=== PATIENT | female | born 1950 | race Caucasian/White ===

== ENCOUNTER 2023-09-24 19:44 | Emergency (ER) | payer MEDICARE, BC, SELFPAY ==
[2023-09-24 19:53] VITALS: BP 138/81; PULSE 64; TEMP 36.4; O2SAT 95; BMI 21.4
--- NOTE | 2023-09-24 20:13 | PC.NURSE ---
Pt reports hitting LLE on drawer handle at home. Pt has large golf ball sized hematoma noted to left tatum, not approximated.
--- NOTE | 2023-09-24 20:25 | ED_ITS ---
HPI HPI - Extremity Injury (Lower) General Chief Complaint: Extremity Injury, Lower Stated Complaint: Extremity Injury, Lower Time Seen by Provider: 09/24/23 19:47 Source: patient and family Mode of arrival: walk-in Limitations: no limitations History of Present Illness HPI Narrative: This 73-year-old female who is staying locally in a camper but lives in [place] presents for evaluation of a large skin tear/laceration on her left lateral lower leg. The patient states she struck it on a sharp plastic drawer handle in her camper. The patient is not on blood thinners but appears to have a tendency toward bleeding as she has multiple areas of ecchymosis on her upper and lower extremities. She states she could not get the bleeding to stop and went to urgent care. Urgent care wrapped the leg and referred her to the emergency department. She denies any additional injury. She does not know the date of her last tetanus shot. Related Data Allergies Allergy/AdvReac Type Severity Reaction Status Date / Time Penicillins Allergy Intermediate Hives Verified 09/24/23 19:58 Opioid HPI Opioid Management Most Recent Pain and Opioid Data: No Data to Display Review of Systems 2 ROS Narrative Vital signs and Nursing Notes reviewed: She is afebrile with a normal pulse, normal blood pressure, she is not hypoxic with pulse ox of 95% on room air General: Awake, alert, oriented, thin female resting comfortably on the stretcher, she is noted to have multiple areas of ecchymosis on her arms and legs HEENT: Normocephalic atraumatic, mucous membranes are moist and pink, eyes are clear, normal conjunctiva, vision is grossly intact Chest: Lungs are clear to auscultation with good air entry, there is no wheezing rhonchi or rales appreciated no accessory muscle use, patient is speaking in complete sentences-no chest wall tenderness to palpation CVS: Regular rate and rhythm S1-S2, no murmurs rubs or gallops, pulses are brisk and equal bilaterally ABD: Soft, nondistended, nontender, no rebound guarding or rigidity, bowel sounds are normal, no pulsatile masses appreciated Extremities: There is an approximately 8 cm skin tear/flap with a large hematoma at the left lateral lower leg. No pulsatile bleeding was noted. Feet are warm and sensate. Dorsalis pedis pulses brisk. Skin: Normal in appearance without rash,pallor, petechiae or purpura Neuro: No focal deficits Exam Narrative Exam Narrative: Vital signs and Nursing Notes reviewed: Patient is afebrile with a normal pulse, blood pressure is mildly elevated at 138/81, she is not hypoxic with pulse ox of 95% on room air General: Awake, alert, oriented, no acute distress, thin female, patient noted to have multiple ecchymotic areas on her upper and lower extremities bilaterally, she denies any trauma HEENT: Normocephalic atraumatic, mucous membranes are moist and pink, eyes are clear, normal conjunctiva, vision is grossly intact, anterior or posterior cervical lymphadenopathy Chest: Faint expiratory wheezing bilaterally with no rhonchi or rales, no accessory muscle use CVS: Regular rate and rhythm S1-S2, no murmurs rubs or gallops, pulses are brisk and equal bilaterally ABD: Soft, nondistended, nontender, no rebound guarding or rigidity, bowel sounds are normal, no pulsatile masses appreciated Extremities: Moving all extremities, multiple areas of ecchymosis on patient's arms and legs with no bony deformity or history of trauma. There is an approximately 8 cm skin tear/flap laceration to the lateral aspect of the left lower leg with a large hematoma. There is no active bleeding. Foot is warm and sensate. Dorsalis pedis pulses brisk. Skin: Multiple areas of ecchymosis on upper and lower extremities with no sign of trauma, patient states her skin is thin so she bruises easily Neuro: No focal deficits Constitutional Vital Signs, click to edit/add: Last Vital Signs Temp 97.6 F 09/24/23 19:53 Pulse 64 09/24/23 19:53 Resp 18 09/24/23 19:53 BP 138/81 09/24/23 19:53 Pulse Ox 95 09/24/23 19:53 O2 Del Method Room Air 09/24/23 19:53 Course Vital Signs Vital signs: Vital Signs Temperature 97.6 F 09/24/23 19:53 Pulse Rate 64 09/24/23 19:53 Respiratory Rate 18 09/24/23 19:53 Blood Pressure 138/81 09/24/23 19:53 Pulse Oximetry 95 09/24/23 19:53 Oxygen Delivery Method Room Air 09/24/23 19:53 Temperature 97.6 F 09/24/23 19:53 Pulse Rate 64 09/24/23 19:53 Respiratory Rate 18 09/24/23 19:53 Blood Pressure 138/81 09/24/23 19:53 Pulse Oximetry 95 09/24/23 19:53 Oxygen Delivery Method Room Air 09/24/23 19:53 MDM - Extremity Injury (Lower) MDM Narrative Medical decision making narrative: This 73-year-old female presents for evaluation of a large skin tear/laceration with a hematoma to the left lateral lower leg that she sustained when she hit her leg on a sharp plastic piece on a fashion coordinator her camper. She was seen at urgent care but urgent care did not feel comfortable treating this so she came to the emergency department. She had an approximately 8 cm skin te ar/flap/laceration with a large hematoma. Bleeding had been controlled by pressure dressing placed at urgent care. A portion of the hematoma was removed after the wound was infiltrated with 1% lidocaine with epinephrine and the wound was closed with sutures and Steri-Strips. Patient was medicated with Keflex, tetanus was updated. She declined the need for any pain medication. She agrees to follow-up in 48 hours for a wound check either at urgent care, this emergency department or the wound care clinic. She will be discharged home with a prescription for Keflex. I did explain to her that this would take a prolonged period of time to heal due to her thin skin and comorbidities. Discharge Plan Discharge Stand Alone Forms: Portal Instructions Chief Complaint: Extremity Injury, Lower Clinical Impression: Laceration of left lower leg, Skin tear of lower leg without complication Patient Disposition: Home, Self-Care Time of Disposition Decision: 21:03 Condition: Good Print Language: Libyan Instructions: Care For Your Stitches (ED), Laceration (ED) Additional Instructions: Follow-up in this emergency department or urgent care or at wound care clinic for wound check in 48 hours. Return to the emergency department for severe pain, excessive bleeding, fever or any concerns. Keep your leg elevated and keep ice on the laceration site for the next 12 to 24 hours. Sutures should remain in place for 2 weeks or until deemed appropriate for removal by wound care or a healthcare provider's recommendation. Referrals: Physician,Non-Staff, MD [Primary Care Provider] - 1 week Discharge Date/Time: 09/24/23 21:32 Procedures ED Procedure Instructions Procedures Procedures: Procedure note: Laceration repair; the wound edges were infiltrated with 1% lidocaine with epinephrine. Once anesthesia was obtained the hematoma that was able to be evacuated was evacuated and the remaining hematoma and laceration was irrigated with copious normal saline. Approximately 14 sutures were placed into the laceration. Approximately 4, 3-0 Ethilon horizontal mattress sutures were placed into the laceration to approximate the wound edges. Additional running sutures and interrupted sutures were placed into the laceration to attempt to close the wound. Several times when I placed the suture into the skin the skin tore at the suture site. After the suture closure the wound was further approximated with Steri-Strips. A nonstick dressing was placed over the Steri- Strips and a pressure dressing was applied. There was no active bleeding prior to to the procedure, during the procedure after the procedure. Patient tolerated procedure well. She was discharged home after being medicated with a dose of Keflex and tetanus was updated.
[2023-09-24] MEDS: LIDOCAINE HCL 1%-EPINEPHRINE 1:100,000 20 ML MDV INJ (20:58)
[2023-09-24] MEDS: ADACEL DIPH,PERTUSS(ACELL),TET VAC/PF 0.5 ML ADULT SYRINGE IM (20:58)
[2023-09-24] MEDS: CEPHALEXIN 500 MG CAPSULE PO (21:17)
== END 2023-09-24 21:32 | disposition home or self-care (01) ==
PROVIDERS: Emergency Provider Emergency Medicine
DX: S81.812A Laceration without foreign body, left lower leg, initial encounter (principal); Z23 Encounter for immunization; W22.8XXA Striking against or struck by other objects, initial encounter
CPT/HCPCS: 12004; 90471; 90715; 99284

== ENCOUNTER 2023-09-26 10:31 | Emergency (ER) | payer MEDICARE, BC, SELFPAY ==
[2023-09-26 10:40] VITALS: BP 141/94; PULSE 61; TEMP 36.4; O2SAT 92; BMI 20.3
--- NOTE | 2023-09-26 10:54 | ED.WOUNDLAC1 ---
HPI - Wound/Laceration General Chief Complaint: Wound/Laceration Stated Complaint: LT LEG HEMATOMA CHECK Time Seen by Provider: 09/26/23 10:32 Source: patient Mode of arrival: walk-in Limitations: no limitations History of Present Illness HPI narrative: 73-year-old female presented as instructed to the emergency department for a wound check. She sustained a wound to her left lower leg 2 days ago and was seen here. Steri-Strips and stitches were placed and she was to follow-up in wound care clinic. She was unable to get in there and she came here to have it checked. She has been taking antibiotic. No purulent drainage or bleeding. She states it is starting to feel better. Related Data Allergies Allergy/AdvReac Type Severity Reaction Status Date / Time Penicillins Allergy Intermediate Hives Verified 09/24/23 19:58 Review of Systems ROS Narrative A ten point review of systems is negative except as noted above. Exam Narrative Exam Narrative: Nurses note and vital signs reviewed and patient is not hypoxic. General: The patient appears well and in no apparent distress. Patient is resting comfortably on cart. Skin: Warm, dry, no pallor noted. There is no rash noted. Head: Normocephalic, atraumatic Eye: Normal conjunctiva, no drainage Ears, Nose, Mouth, and Throat: oral mucosa is moist. Nares patent. Cardiovascular: Regular Rate and Rhythm Respiratory: Patient is in no distress, no accessory muscle use, lungs are clear to auscultation, no wheezing, rales or rhonchi Back: non-tender GI: Soft and nontender Musculoskeletal: The left leg is examined. Hematoma present and Steri-Strips are in place. There is no bleeding or surrounding erythema. There is no drainage. Psychiatric: Cooperative Constitutional Vital Signs, click to edit/add: Last Vital Signs Temp 97.6 F 09/26/23 10:40 Pulse 61 09/26/23 10:40 Resp 18 09/26/23 10:40 BP 141/94 H 09/26/23 10:40 Pulse Ox 92 L 09/26/23 10:40 O2 Del Method Room Air 09/26/23 10:40 Course Vital Signs Vital signs: Vital Signs Temperature 97.6 F 09/26/23 10:40 Pulse Rate 61 09/26/23 10:40 Respiratory Rate 18 09/26/23 10:40 Blood Pressure 141/94 H 09/26/23 10:40 Pulse Oximetry 92 L 09/26/23 10:40 Oxygen Delivery Method Room Air 09/26/23 10:40 Temperature 97.6 F 09/26/23 10:40 Pulse Rate 61 09/26/23 10:40 Respiratory Rate 18 09/26/23 10:40 Blood Pressure 141/94 H 09/26/23 10:40 Pulse Oximetry 92 L 09/26/23 10:40 Oxygen Delivery Method Room Air 09/26/23 10:40 MDM - Wound/Laceration MDM Narrative Medical decision making narrative: The wound appears to be healing well and she was encouraged to follow-up in wound care clinic and to take her Keflex. Treatment diagnosis and follow-up were discussed with the patient. Differential Diagnosis Differential diagnosis: Likely laceration, abrasion and other (Hematoma) Discharge Plan Discharge Stand Alone Forms: Portal Instructions Chief Complaint: Wound/Laceration Clinical Impression: Visit for wound check Patient Disposition: Home, Self-Care Time of Disposition Decision: 10:52 Condition: Good Mode of Transportation: Private Vehicle Print Language: Nepali Instructions: Wound Healing and Your Diet (ED), Hematoma (ED) Additional Instructions: Follow-up in the wound care clinic, call them in the morning. Referrals: Physician,Non-Staff, MD [Primary Care Provider] - 1 week
[2023-09-26 11:01] VITALS: PULSE 87; O2SAT 94
== END 2023-09-26 11:03 | disposition home or self-care (01) ==
PROVIDERS: Emergency Provider Emergency Medicine
DX: S81.812D Laceration without foreign body, left lower leg, subsequent encounter (principal); X58.XXXD Exposure to other specified factors, subsequent encounter
CPT/HCPCS: 99281

== ENCOUNTER 2023-09-30 16:11 | Outpatient (OUT) | payer MEDICARE, BC, SELFPAY | END 2023-09-30 16:12 | disposition home or self-care (01) | LOC: WC 16:11 | PROVIDERS: Visit Provider Podiatrist Foot & Ankle Surgery | DX: S81.802A Unspecified open wound, left lower leg, initial encounter (principal) | CPT/HCPCS: G0463 ==

== ENCOUNTER 2023-10-12 16:09 | Outpatient (OUT) | payer MEDICARE, BC, SELFPAY | END 2023-10-12 16:10 | disposition home or self-care (01) | LOC: WC 16:09 | PROVIDERS: Visit Provider Physician Assistant | DX: S81.802A Unspecified open wound, left lower leg, initial encounter (principal) | CPT/HCPCS: A6213; G0463 ==

== ENCOUNTER 2023-10-20 19:20 | Emergency (ER) | payer MEDICARE, BC, SELFPAY ==
[2023-10-20 19:23] VITALS: BP 123/70; PULSE 68; TEMP 36.4; O2SAT 98; BMI 20.3
--- OUTSIDE RECORDS SUMMARY | 2023-10-20 19:30 | XMS_ITS | CCD ---
Author Organization [facility] Care Team Providers Care Powder Mixer Name Role Phone Loulou Sanchez Primary Care Provider NON STAFF Primary Care Provider UnavailKRYSTAL Hightower Emergency Provider [phone] JOHANNY MCKNIGHT Attending Unavailable DO Sushma Nascimento Emergency Provider MD Juan Alberto Salinas Admit Provider MD Juan Alberto Salinas Attending Provider Juan Alberto Salinas Attending Unavailable Juan Alberto Salinas Admitting Unavailable NON STAFF Primary Care Unavailable Don Rapp Admitting Unavailable NON STAFF Primary Care Unavailable Don Rapp Attending Unavailable Allergies Allergy Classification Reported Allergen(s) Allergy Type Date of Onset Reaction(s) Facility (1 source) Penicillins Drug allergy (disorder) 09-21-2023 [facility] Repository Medications Current Medications Medication Drug Class(es) Dates Sig (Normalized) Sig (Original) alendronic acid 70 mg oral tablet (2 sources) Bisphosphonate Start: 09-21-2023 take 70 mg by mouth every week Alendronate Active 70 MG PO every week September 21, 2023 12:00am aspirin 81 mg oral tablet (3 sources) Platelet Aggregation Inhibitor, Nonsteroidal Anti-inflammatory Drug Start: 08-17-2023 take 81 mg by mouth once daily Aspirin Active 81 MG PO Daily August 17, 2023 12:00am atorvastatin 40 mg oral tablet (2 sources) HMG-CoA Reductase Inhibitor Start: 09-21-2023 take 40 mg by mouth once daily Atorvastatin Active 40 MG PO Daily September 21, 2023 12:00am clonazePAM 0.5 mg oral tablet (3 sources) Benzodiazepine Start: 09-24-2023 take 0.5 mg by mouth twice daily Clonazepam Active 0.5 MG PO Twice daily 0 September 24, 2023 12:00am Start: 09-21-2023 End: 09-24-2023 take 1 mg by mouth twice daily Clonazepam Discontinued 1 MG PO Twice daily September 21, 2023 12:00am September 24, 2023 10:40am DULoxetine 60 mg delayed release oral capsule (4 sources) Serotonin and Norepinephrine Reuptake Inhibitor Start: 08-17-2023 End: 09-24-2023 take 1 capsule by mouth twice daily Duloxetine (Cymbalta) 60 mg capsule,delayed release(DR/EC) Active 60 MG PO Twice daily 60 30 September 24, 2023 10:40am Fluticasone Propion-Salmeterol (3 sources) Corticosteroid, beta2-Adrenergic Agonist Start: 08-17-2023 Fluticasone Propion-Salmeterol (Wixela Inhub) 250-50 mcg/dose blister with device Active 1 INH INHALATION Twice daily August 17, 2023 12:00am 1 inh inhaled; losartan potassium 25 mg oral tablet (2 sources) Angiotensin 2 Receptor Eulogio Start: 09-21-2023 take 25 mg by mouth once daily Losartan Active 25 MG PO Daily September 21, 2023 12:00am meclizine hydrochloride 25 mg oral tablet (2 sources) Antiemetic Start: 09-21-2023 take 25 mg by mouth three times daily Meclizine Active 25 MG PO Three times daily September 21, 2023 12:00am nicotine 2 mg chewing gum (1 source) Cholinergic Nicotinic Agonist Start: 09-24-2023 Nicotine (Polacrilex) Active 2 MG BUCCAL Q2H September 24, 2023 12:00am ondansetron 4 mg disintegrating oral tablet (2 sources) Serotonin-3 Receptor Antagonist Start: 09-21-2023 take 4 mg by mouth every eight hours Ondansetron Active 4 MG PO Every 8 hours September 21, 2023 12:00am pantoprazole 40 mg delayed release oral tablet (5 sources) Proton Pump Inhibitor Start: 09-21-2023 take 40 mg by mouth twice daily Pantoprazole Active 40 MG PO Twice daily September 21, 2023 12:00am Start: 08-17-2023 End: 09-21-2023 Protonix Discontinued PO Twi ce daily August 17, 2023 12:00am September 21, 2023 12:47pm Start: 08-17-2023 Protonix Activ e PO Twice daily August 17, 2023 12:00am pregabalin 50 mg oral capsule (2 sources) Start: 09-21-2023 take 50 mg by mouth three times daily Pregabalin Active 50 MG PO Three times daily September 21, 2023 12:00am propranolol hydrochloride 20 mg oral tablet (2 sources) beta-Adrenergic Eulogio Start: 09-21-2023 take 20 mg by mouth twice daily Propranolol Active 20 MG PO Twice daily September 21, 2023 12:00am 24 hr QUEtiapine 200 mg extended release oral tablet (5 sources) Atypical Antipsychotic Start: 09-21-2023 take 200 mg by mouth once daily at bedtime Quetiapine Active 200 MG PO Daily at bedtime September 21, 2023 12:00am Start: 08-17-2023 End: 09-21-2023 take 1 tablet by mouth once daily Quetiapine (Seroquel) 100 mg tablet Discontinued 100 MG PO Daily August 17, 2023 12:00am September 21, 2023 12:47pm temazepam 30 mg oral capsule (3 sources) Benzodiazepine Start: 08-17-2023 take 30 mg by mouth once daily at bedtime temazepam Active 30 MG PO Daily at bedtime August 17, 2023 12:00am Start: 08-17-2023 temazepam Acti ve PO Daily August 17, 2023 12:00am 60 actuat tiotropium 0.0025 mg/actuat inhalation spray (5 sources) Anticholinergic Start: 09-21-2023 take 2.5 ug by inhalation twice daily Tiotropium [place] (Spiriva Respimat) 2.5 mcg/actuation mist Active 2 INH INHALATION Twice daily September 21, 2023 12:00am Start: 08-17-2023 End: 09-21-2023 SPIRIVA Discontinued INHALAT ION Daily August 17, 2023 12:00am September 21, 2023 12:48pm Start: 08-17-2023 SPIRIVA Active INHALATION Daily August 17, 2023 12:00am Completed/Discontinued Medications Medication Drug Class(es) Dates Sig (Normalized) Sig (Original) busPIRone hydrochloride 10 mg oral tablet (2 sources) Start: 09-21-2023 End: 09-21-2023 take 10 mg by mouth once daily Buspirone Discontinued 10 MG PO Daily September 21, 2023 12:00am September 21, 2023 6:04pm Lisinopril (3 sources) Angiotensin Converting Enzyme Inhibitor Start: 08-17-2023 End: 09-21-2023 LISINOPRIL Discontinued PO Daily August 17, 2023 12:00am September 21, 2023 12:47pm Start: 08-17-2023 LISINOPRIL Act nestor PO Daily August 17, 2023 12:00am Nirmatrelvir-Ritonavir (Paxlovid) 300 mg (150 mg x 2)-100 mg tablets,dose pack (3 sources) Start: 08-17-2023 End: 09-21-2023 Nirmatrelvir-Ritonavir (Paxlovid) 300 mg (150 mg x 2)-100 mg tablets,dose pack Discontinued 0 PO .COMPLEX August 17, 2023 12:00am September 21, 2023 12:47pm take TWO 150 mg tablets of nirmatrelvir with ONE 100 mg tablet of ritonavir twice daily for 5 days Start: 08-17-2023 Nirmatrelvir-R itonavir (Paxlovid) 300 mg (150 mg x 2)-100 mg tablets,dose pack Active 0 PO .COMPLEX August 17, 2023 12:00am take TWO 150 mg tablets of nirmatrelvir with ONE 100 mg tablet of ritonavir twice daily for 5 days predniSONE 20 mg oral tablet (3 sources) Start: 08-17-2023 End: 09-21-2023 Prednisone Discontinued 0 .R oute .COMPLEX 18 August 17, 2023 12:00am September 21, 2023 12:47pm 3 tabs a day for 3 days, 2 tabs a day for 3 days, 1 tab a day for 3 days Problems Problem Classification Problem Date Documented Da te Episodic/Chronic Abdominal pain (4 sources) Chronic abdominal pain; Translations: [Unspecified abdominal pain] 09-21-2023 Episodic Chronic obstructive pulmonary disease and bronchiectasis (3 sources) Acute exacerbation of chronic obstructive airways disease 08-17-2023 Chronic Mood disorders (5 sources) Major depressive disorder; Translations: [Major depressive disorder, single episode, unspecified] Onset: 09-21-2023 09-21-2023 Chronic Other lower respiratory disease (1 source) Shortness of breath; Translations: [Shortness of breath] Onset: 08-17-2023 Episodic Viral infection (3 sources) Disease caused by 2019-nCoV; Translations: [COVID-19] 08-17-2023 Episodic Results Test Name Value Interpretation Reference Range Facility Cholesterol [Mass/volume] in Serum or PlasmaOrdered By: Juan Alberto Salinas on 09-22-2023 Cholesterol [Mass/Vol] 103 mg/dL Low 140-[address] [facility] Comment on above: Chol less than 200 m g/dl low riskChol 201-239 mg/dl borderline riskChol 240 mg/dl and greater high risk Result Comment: Chol less than 200 mg/dl low risk Chol 201-239 mg/dl borderline risk Chol 240 mg/dl and greater high risk Performed By: #### L IPID, [id number], TSH3 wRFLX ####[facility] [id number] Cholesterol in LDL Calc [Mas s/Vol]Ordered By: Juan Alberto Salinas on 09-22-2023 Cholesterol in LDL [Mass/Vol] 36 mg/dL 0-100 [facility] Comment on above: LDL ATP III CLASSIFI CATIONLDL less than 100 mg/dL OptimalLDL 100-129 mg/dL Near or above optimalLDL 130-159 mg/dL Borderline highLDL 160-189 mg/dL HighLDL greater than 189 mg/dL Very high Cholesterol in VLDL Calc [Ma ss/Vol]Ordered By: Juan Alberto Salinas on 09-22-2023 Cholesterol in VLDL [Mass/Vol] 11 mg/dL [facility] ECG 12 lead ECGon 09-22-2023 ECG 12 lead ECG [facility] [address] [place] [address] [place] [address] Electrocardiograph Report Signed Patient: Quin Perez MR#: [id number] : 1950 Acct:[id number] Age/Sex: 73 / F ADM Date: 09/21/23 Loc: Room: [address] [place] [address] Type: ADM IN Attending Dr: Juan Alberto Salinas MD Ordering Provider: Juan Alberto Salinas MD Date of Service: 09/22/23 ECG/ECG 12 lead ECG: baseline Copies to: Test Reason : Blood Pressure : */* mmHG Vent. Rate : 78 BPM Atrial Rate : 78 BPM P-R Int : 116 ms QRS Dur : 90 ms QT Int : 386 ms P-R-T Axes : 72 26 75 degrees QTcB Int : 440 ms Normal sinus rhythm Minimal voltage criteria for LVH, may be normal variant ( [place] product ) Borderline ECG When compared with ECG of 17-Aug-2023 13:47, Criteria for Anterolateral infarct are no longer present Confirmed by KOJO JAMESON MD ([id number]) on 09/22/2023 3:47:46 PM Referred By: Electronically Signed By: KOJO JAMESON MD Transcribed By: MUS Signed By Kojo Jameson MD 0 09/22/23 1547 Normal [facility] Lipid Panelon 09-22-2023 LDL Cholesterol,Calculated 36 mg/dL Normal 0-100 [facility] Comment on above: Result Comment: LDL ATP III CLASSIFICATION LDL less than 100 mg/dL Optimal LDL 100-129 mg/dL Near or above optimal LDL 130-159 mg/dL Borderline high LDL 160-189 mg/dL High LDL greater than 189 mg/dL Very high Performed By: #### L IPID, [id number], TSH3 wRFLX ####[place] [id number] Triglyceride w/Reflex 58 mg/dL Normal 0-149 [facility] Comment on above: Result Comment: TRIG ATP III CLASSIFICATION TRIG less than 150 mg/dL Normal TRIG 150-199 mg/dL Borderline high TRIG 200-500 mg/dL High TRIG greater than 500 mg/dL Very high Standard traceable to the Center for Disease Conrtrol and Prevention (CDC) test method. Performed By: #### L IPID, [id number], TSH3 wRFLX ####[facility] [id number] [place] [address] RUST VLDL CHOLESTEROL 11 mg/dL Normal [facility] Comment on above: Performed By: #### L IPID, [id number], TSH3 wRFLX ####[place] [id number] Serum or plasma high density lipoprotein (HDL) cholesterol measurementOrdered By: Juan Alberto Salinas on 09-22-2023 Cholesterol in HDL [Mass/Vol] 55 mg/dL Normal - [facility] Comment on above: HDL CHOL ATP-III CLA SSIFICATION Cardiovascular RiskHDL > or equal to 60 mg/dL LOWHDL < 40 mg/dL HIGH Result Comment: HDL CHOL ATP-III CLASSIFICATION Cardiovascular Risk HDL > or equal to 60 mg/dL LOW HDL < 40 mg/dL HIGH Performed By: #### L IPID, [id number], TSH3 wRFLX ####[address] Serum or plasma total choles terol/high density lipoprotein (HDL) cholesterol mass ratOrdered By: Juan Alberto Salinas on 09-22-2023 Cholesterol.total/Chol esterol in HDL [Mass ratio] 1.9 {ratio} Normal <5.0 [facility] Comment on above: Performed By: #### L IPID, [id number], TSH3 wRFLX ####[address] Thyroid Stim Hormone w/Rflxo n 09-22-2023 Thyroid Stim Hormone w/Rflx 0.80 u[iU]/mL Normal 0.45-5.33 [facility] Comment on above: Performed By: #### L IPID, [id number], TSH3 wRFLX ####[address] Thyrotropin [Units/volume] i n Serum or PlasmaOrdered By: Juan Alberto Salinas on 09-22-2023 TSH Qn 0.80 m[IU]/L 0.45-5.33 [facility] Triglyceride [Mass/volume] i n Serum or PlasmaOrdered By: Juan Alberto Salinas on 09-22-2023 Triglyceride [Mass/Vol] 58 mg/dL 0-149 [facility] Comment on above: TRIG ATP III CLASSIF ICATIONTRIG less than 150 mg/dL NormalTRIG 150-199 mg/dL Borderline highTRIG 200-500 mg/dL High TRIG greater than 500 mg/dL Very highStandard traceable to the Center for Disease Conrtrol and Prevention (CDC) test method. Vitamin D 25 Hydroxy Totalon 09-22-2023 Vitamin D 25 Hydroxy Total 19.4 ng/mL Low 30-100 [facility] Comment on above: Result Comment: ARELI MIN D STATUS 25(OH)VITAMIN D RANGE (ng/mL) Deficient <20 Insufficient 20 to <30 Sufficient 30 to 100 Reference: Jerry aY, Vita ORTEZ, et al. Evaluation,treatment, and prevention of vitamin D deficiency; an Endocrine Society clinical practice guideline. JCEM. 2010; 96(7):1911-. PERFORMED BY: [facility] [address] [place] [address] PATHOLOGIST [employer] SRINATH MENDIOLA M.D. Performed By: #### L IPID, [id number], TSH3 wRFLX ####[facility] [id number] Vitamin D+Metabolites [Mass/ volume] in Serum or PlasmaOrdered By: Juan Alberto Salinas on 09-22-2023 Vitamin D+Metabolites [Mass/Vol] 19.4 ng/mL Low 30-100 [facility] Comment on above: VITAMIN D STATUS 25( [place])VITAMIN D RANGE (ng/mL) Deficient <20 Insufficient 20 to <30Sufficient 30 to 100Reference: Jerry Ya, Vita ORTEZ, et al. Evaluation,treatment, and prevention of vitamin D deficiency; an Endocrine Society clinical practice guideline. JCEM. 2010; 96(7):1911-30. Alanine aminotransferase [En zymatic activity/volume] in Serum or PlasmaOrdered By: Sushma Nascimento on 09-21-2023 ALT [Catalytic activity/Vol] 14 U/L Normal 7-52 [facility] Comment on above: Performed By: #### R EDIL PANEL UPP., BIOFIRECOVDET #### [facility] [address] Albumin [Mass/volume] in Ser um or Plasma by Bromocresol green (BCG) dye binding methoOrdered By: Sushma Nascimento on 09-21-2023 Albumin BCG dye [Mass/Vol] 3.6 g/dL 3.5-5.7 [facility] Alkaline phosphatase [Enzyma tic activity/volume] in Serum or PlasmaOrdered By: Sushma Nascimento on 09-21-2023 ALP [Catalytic activity/Vol] 94 U/L Normal 34-104 [facility] Comment on above: Performed By: #### R EDIL PANEL UPP., BIOFIRECOVDET #### [facility] [address] Amphetamine Screen Ql (U)Ord ered By: Sushma Nascimento on 09-21-2023 Amphetamines Ql (U) Negative Negative [facility] Aspartate aminotransferase [ Enzymatic activity/volume] in Serum or PlasmaOrdered By: Sushma Nascimento on 09-21-2023 AST [Catalytic activity/Vol] 15 U/L Normal 13-39 [facility] Comment on above: Performed By: #### R EDIL PANEL UPP., BIOFIRECOVDET #### [address] Automated basophil %Ordered By: Sushma Nascimento on 09-21-2023 Basophils/100 WBC (Bld) 0.6 % Normal . [facility] Comment on above: Performed By: #### R EDIL PANEL UPP., BIOFIRECOVDET #### [facility] [address] [place] [address] Automated basophil countOrde red By: Sushma Nascimento on 09-21-2023 Basophils (Bld) [#/Vol] 0.1 10*3/uL Normal 0.0-0.2 [facility] Comment on above: Result Comment: PERF ORMED BY: [place] [address] PATHOLOGIST [employer] SRINATH MENDIOLA M.D. Performed By: #### R EDIL PANEL UPP., BIOFIRECOVDET #### [address] Automated blood monocyte cou ntOrdered By: Sushma Nascimento on 09-21-2023 Monocytes (Bld) [#/Vol] 0.8 10*3/uL Normal 0.0-0.8 [facility] Comment on above: Performed By: #### R EDIL PANEL UPP., BIOFIRECOVDET #### [address] Automated eosinophil %Ordere d By: Sushma Nascimento on 09-21-2023 Eosinophils/100 WBC (Bld) 0.1 % Normal . [facility] Comment on above: Performed By: #### R EDIL PANEL UPP., BIOFIRECOVDET #### [address] Automated eosinophil countOr dered By: Sushma Nascimento on 09-21-2023 Eosinophils (Bld) [#/Vol] 0.0 10*3/uL Normal 0.0-0.45 [facility] Comment on above: Performed By: #### R EDIL PANEL UPP., BIOFIRECOVDET #### [address] Automated epithelial cells c ount in urine sediment (number/area)Ordered By: Sushma Nascimento on 09-21-2023 Epithelial cells Auto (Urine sed) [#/Area] 3-4 [HPF] High 0-2 [facility] Automated monocyte %Ordered By: Sushma Nascimento on 09-21-2023 Monocytes/100 WBC (Bld) 6.7 % Normal . [facility] Comment on above: Performed By: #### R EDIL PANEL UPP., BIOFIRECOVDET #### [address] Automated neutrophil %Ordere d By: Sushma Nascimento on 09-21-2023 Neutrophils/100 WBC (Bld) 80.7 % Normal . [facility] Comment on above: Performed By: #### R EDIL PANEL UPP., BIOFIRECOVDET #### [address] Bacteria [Presence] in Urine by AutomatedOrdered By: Sushma Nascimento on 09-21-2023 Bacteria Auto Ql (U) None seen [HPF] None Seen [facility] Barbiturates [Presence] in U rine by Screen methodOrdered By: Sushma Nascimento on 09-21-2023 Barbiturates Screen Ql (U) Negative Negative [facility] Benzodiazepines Screen Ql (U )Ordered By: Sushma Nascimento on 09-21-2023 Benzodiazepines Ql (U) Positive High Negative [facility] Benzoylecgonine [Presence] i n Urine by Screen methodOrdered By: Sushma Nascimento on 09-21-2023 Benzoylecgonine Screen Ql (U) Negative Negative [facility] Bilirubin Test strip Ql (U)O rdered By: Sushma Nascimento on 09-21-2023 Bilirubin Ql (U) 2+ High Negative [facility] Bilirubin.total [Mass/volume ] in Serum or PlasmaOrdered By: Sushma Nascimento on 09-21-2023 Bilirubin [Mass/Vol] 0.7 mg/dL Normal 0.3-1.0 [facility] Comment on above: Performed By: #### R EDIL PANEL UPP., BIOFIRECOVDET #### [facility] [address] [place] [address] [place] Calcium [Mass/volume] in Ser um or PlasmaOrdered By: Sushma Nascimento on 09-21-2023 Calcium [Mass/Vol] 9.6 mg/dL Normal 8.6-10.3 [facility] Comment on above: Performed By: #### R EDIL PANEL UPP., BIOFIRECOVDET #### [facility] [address] [place] [address] [place] Cannabinoids [Presence] in U rine by Screen methodOrdered By: Sushma Nascimento on 09-21-2023 Cannabinoids Screen Ql (U) Negative Negative [facility] Comment on above: These are unconfirme d results and should not be used for legal purposes. Drug Cut-Off Concentration: AMPH 1000 ng/mL MELISA 200 ng/mL SHUBHAM 200 ng/mL COCM 300 ng/mL OP 300 ng/mL PCP 25 ng/mL THC 20 ng/mL Carbon dioxide, total [Moles /volume] in Serum or PlasmaOrdered By: Sushma Nascimento on 09-21-2023 CO2 [Moles/Vol] 39.0 mmol/L High 21.0-31.0 [facility] Comment on above: Performed By: #### R EDIL PANEL UPP., BIOFIRECOVDET #### [address] Chloride [Moles/volume] in S piter or PlasmaOrdered By: Sushma Nascimento on 09-21-2023 Chloride [Moles/Vol] 96 mmol/L Low 98-107 [facility] Comment on above: Performed By: #### R EDIL PANEL UPP., BIOFIRECOVDET #### [address] Color of Urine by AutoOrdere d By: Sushma Nascimento on 09-21-2023 Color (U) Dark yellow Critically abnormal Yellow [facility] Comment on above: Order Comment: Name Collection Type:: Clean-Voided Midstream Performed By: #### R EDIL PANEL UPP., BIOFIRECOVDET #### [address] Complete Blood Count Auto Di ffon 09-21-2023 Mean Corpuscular HGB Conc 31.5 g/dL Low 32.0-35.0 [facility] Comment on above: Performed By: #### R EDIL PANEL UPP., BIOFIRECOVDET #### [place] [address] [place] Monocytes/100 WBC (Bld) 19.97 % Normal 0.00-20.00 [facility] Comment on above: Performed By: #### R EDIL PANEL UPP., BIOFIRECOVDET #### [facility] [address] [place] [address] NRBC% 0.1 /100{WBC} Normal 0-0.5 [facility] Comment on above: Performed By: #### R EDIL PANEL UPP., BIOFIRECOVDET #### [address] Comprehensive Metabolic Pane phi 09-21-2023 Albumin [Mass/Vol] 3.6 g/dL Normal 3.5-5.7 [facility] Comment on above: Performed By: #### R EDIL PANEL UPP., BIOFIRECOVDET #### [address] Creatinine Clr Calc Pharmacy 44.06 Normal [facility] Comment on above: Result Comment: PERF ORMED BY: [place] [address] PATHOLOGIST [employer] SRINATH MENDIOLA M.D. Performed By: #### R EDIL PANEL UPP., BIOFIRECOVDET #### [address] GFR/1.73 sq M.predicted MDRD (S/P/Bld) [Vol rate/Area] mL/min/{1.73_m2} Normal [facility] Comment on above: Performed By: #### R EDIL PANEL UPP., BIOFIRECOVDET #### [address] Creatinine [Mass/volume] in Serum or PlasmaOrdered By: Sushma Nascimento on 09-21-2023 Creatinine [Mass/Vol] 0.81 mg/dL Normal 0.60-1.20 [facility] Comment on above: Performed By: #### R EDIL PANEL UPP., BIOFIRECOVDET #### [address] Dipstick and Microscopicon 0 09-21-2023 Appearance (U) Cloudy Critically abnormal Clear [facility] Comment on above: Order Comment: Name Collection Type:: Clean-Voided Midstream Performed By: #### R EDIL PANEL UPP., BIOFIRECOVDET #### [address] Bacteria,Urine None Seen Normal None Seen [facility] Comment on above: Order Comment: Name Collection Type:: Clean-Voided Midstream Performed By: #### R EDIL PANEL UPP., BIOFIRECOVDET #### [address] Bilirubin,Urine 2+ High Negative [facility] Comment on above: Order Comment: Name Collection Type:: Clean-Voided Midstream Performed By: #### R EDIL PANEL UPP., BIOFIRECOVDET #### [address] Glucose Ql (U) Normal Normal Normal [facility] Comment on above: Order Comment: Name Collection Type:: Clean-Voided Midstream Performed By: #### R EDIL PANEL UPP., BIOFIRECOVDET #### [address] Hyaline Casts,Urine 9-19 High 0-8 [facility] Comment on above: Order Comment: Name Collection Type:: Clean-Voided Midstream Result Comment: PERF ORMED BY: [place] [address] PATHOLOGIST [employer] SRINATH MENDIOLA M.D. Performed By: #### R EDIL PANEL UPP., BIOFIRECOVDET #### [address] Ketones Ql (U) Trace High Negative [facility] Comment on above: Order Comment: Name Collection Type:: Clean-Voided Midstream Performed By: #### R EDIL PANEL UPP., BIOFIRECOVDET #### [address] Leukocyte esterase Test strip Ql (U) 1+ High Negative [facility] Comment on above: Order Comment: Name Collection Type:: Clean-Voided Midstream Performed By: #### R EDIL PANEL UPP., BIOFIRECOVDET #### [place] [address] [place] Nitrite,Urine Negative Normal Negative [facility] Comment on above: Order Comment: Name Collection Type:: Clean-Voided Midstream Performed By: #### R EDIL PANEL UPP., BIOFIRECOVDET #### [address] Occult Blood,Urine Negative Normal Negative [facility] Comment on above: Order Comment: Name Collection Type:: Clean-Voided Midstream Result Comment: PERF ORMED BY: [place] [address] PATHOLOGIST [employer] SRINATH MENDIOLA M.D. Performed By: #### R EDIL PANEL UPP., BIOFIRECOVDET #### [address] RBC LM.HPF (Urine sed) [#/Area] 0 /[HPF] Normal 0-4 [facility] Comment on above: Order Comment: Name Collection Type:: Clean-Voided Midstream Performed By: #### R EDIL PANEL UPP., BIOFIRECOVDET #### [address] Specificy [place],Urine 1.022 Normal 1.001-1.03 0 [facility] Comment on above: Order Comment: Name Collection Type:: Clean-Voided Midstream Performed By: #### R EDIL PANEL UPP., BIOFIRECOVDET #### [address] Squamous Epithelial Cell,Urine 3-4 High 0-2 [facility] Comment on above: Order Comment: Name Collection Type:: Clean-Voided Midstream Performed By: #### R EDIL PANEL UPP., BIOFIRECOVDET #### [address] Urobilinogen,Urine >=2 High Normal [facility] Comment on above: Order Comment: Name Collection Type:: Clean-Voided Midstream Performed By: #### R EDIL PANEL UPP., BIOFIRECOVDET #### [address] WBC,Urine 3-4 Normal 0-4 [facility] Group Comment on above: Order Comment: Name Collection Type:: Clean-Voided Midstream Performed By: #### R EDIL PANEL UPP., BIOFIRECOVDET #### [address] Drug Screen,Urineon 09-21-19 24 Amphetamine Screen,Urine Negative Normal Negative [facility] Comment on above: Performed By: #### R EDIL PANEL UPP., BIOFIRECOVDET #### [address] Barbiturate Screen,Urine Negative Normal Negative [facility] Comment on above: Performed By: #### R EDIL PANEL UPP., BIOFIRECOVDET #### [address] Benzodiazepines Screen,Urine Positive High Negative [facility] Comment on above: Performed By: #### R EDIL PANEL UPP., BIOFIRECOVDET #### [address] Cannabinoid Screen,Urine Negative Normal Negative [facility] Comment on above: Result Comment: Thes e are unconfirmed results and should not be used for legal purposes. Drug Cut-Off Concentration: AMPH 1000 ng/mL MELISA 200 ng/mL SHUBHAM 200 ng/mL COCM 300 ng/mL OP 300 ng/mL PCP 25 ng/mL THC 20 ng/mL PERFORMED BY: [place] [address] PATHOLOGIST [employer] SRINATH MENDIOLA M.D. Performed By: #### R EDIL PANEL UPP., BIOFIRECOVDET #### [address] Cocaine Screen,Urine Negative Normal Negative [facility] Comment on above: Performed By: #### R EDIL PANEL UPP., BIOFIRECOVDET #### [place] [address] [place] Opiate Screen,Urine Negative Normal Negative [facility] Comment on above: Performed By: #### R EDIL PANEL UPP., BIOFIRECOVDET #### [address] Phencyclidine Screen,Urine Negative Normal Negative [facility] Comment on above: Performed By: #### R EDIL PANEL UPP., BIOFIRECOVDET #### [address] [place] [address] [place] Erythrocyte distribution wid th [Ratio] by Automated countOrdered By: Sushma Nascimento on 09-21-2023 Erythrocyte distribution width (RBC) [Ratio] 15.4 % High 11.9-15.3 [facility] Comment on above: Performed By: #### R EDIL PANEL UPP., BIOFIRECOVDET #### [facility] [address] [place] [address] [place] Erythrocytes [#/area] in Uri ne sediment by Automated countOrdered By: Sushma Nascimento on 09-21-2023 RBC Auto (Urine sed) [#/Area] 0-1 [HPF] 0-4 [facility] Erythrocytes [#/volume] in B lood by Automated countOrdered By: Sushma Nascimento on 09-21-2023 RBC (Bld) [#/Vol] 4.50 10*6/uL Normal 3.60-5.00 [facility] Comment on above: Performed By: #### R EDIL PANEL UPP., BIOFIRECOVDET #### [place] [address] [place] Ethanol [Mass/volume] in Ser um or PlasmaOrdered By: Sushma Nascimento on 09-21-2023 Ethanol [Mass/Vol] mg/dL Normal [facility] Comment on above: Performed By: #### R EDIL PANEL UPP., BIOFIRECOVDET #### [place] [address] [place] Ethanol [Mass/Vol] TNP [facility] Comment on above: Test not performed Ethyl Alcohol Profileon 08-31 Percent Ethanol Not performed Normal [facility] Comment on above: Result Comment: PERF ORMED BY: [place] [address] PATHOLOGIST [employer] SRINATH MENDIOLA M.D. Performed By: #### R EDIL PANEL UPP., BIOFIRECOVDET #### [place] [address] [place] Glucose [Mass/volume] in Ser um or PlasmaOrdered By: Sushma Nascimento on 09-21-2023 Glucose [Mass/Vol] 188 mg/dL High 70-100 [facility] Comment on above: ADA recommended refe rence rangeRandom Glucose Reference Range is dependent on time and content of last meal. Glucose of more than 200 mg/dL in a nonstressed, ambulatory subject supports the diagnosis of Diabetes Mellitus. Result Comment: [place] om Glucose Reference Range is dependent on time and content of last meal. Glucose of more than 200 mg/dL in a nonstressed, ambulatory subject supports the diagnosis of Diabetes Mellitus. ADA recommended reference range Performed By: #### R EDIL PANEL UPP., BIOFIRECOVDET #### [address] Hematocrit [Volume Fraction] of Blood by Automated countOrdered By: Sushma Nascimento on 09-21-2023 Hematocrit (Bld) [Volume fraction] 41.8 % Normal 34.0-46.4 [facility] Comment on above: Performed By: #### R EDIL PANEL UPP., BIOFIRECOVDET #### [address] Hemoglobin [Mass/volume] in BloodOrdered By: Sushma Nascimento on 09-21-2023 Hemoglobin (Bld) [Mass/Vol] 13.2 g/dL Normal 11.8-15.4 [facility] Comment on above: Performed By: #### R EDIL PANEL UPP., BIOFIRECOVDET #### [address] Ketones Auto test strip (U) [Mass/Vol]Ordered By: Sushma Nascimento on 09-21-2023 Ketones (U) [Mass/Vol] Trace High Negative [facility] Laboratory - UrinalysisOrder ed By: Sushma Nascimento on 09-21-2023 Hyaline casts LM Ql (Urine sed) 9-19 [LPF] High 0-8 [facility] Leukocytes [#/area] in Urine sediment by Automated countOrdered By: Sushma Nascimento on 09-21-2023 WBC Auto (Urine sed) [#/Area] 3-4 [HPF] 0-4 [facility] Leukocytes [#/volume] correc joe for nucleated erythrocytes in Blood by Automated counOrdered By: Sushma Nascimento on 09-21-2023 WBC corrected for nucl RBC Auto (Bld) [#/Vol] 12.6 10*3/uL High 3.8-11.6 [facility] Leukocytes [#/volume] in Blo od by Automated countOrdered By: Sushma Nascimento on 09-21-2023 WBC (Bld) [#/Vol] 12.6 10*3/uL High 3.8-11.6 [facility] Comment on above: Performed By: #### R EDIL PANEL UPP., BIOFIRECOVDET #### [facility] [address] [place] [address] Lymphocytes [#/volume] in Bl ood by Automated countOrdered By: Sushma Nascimento on 09-21-2023 Lymphocytes (Bld) [#/Vol] 1.5 10*3/uL Normal 1.00-4.8 [facility] Comment on above: Performed By: #### R EDIL PANEL UPP., BIOFIRECOVDET #### [facility] [address] [place] [address] Lymphocytes/100 leukocytes i n Blood by Automated countOrdered By: Sushma Nascimento on 09-21-2023 Lymphocytes/100 WBC (Bld) 11.9 % Normal . [facility] Comment on above: Performed By: #### R EDIL PANEL UPP., BIOFIRECOVDET #### [facility] [address] [place] [address] [place] MCH [Entitic mass] by Automa joe countOrdered By: Sushma Nascimento on 09-21-2023 MCH (RBC) [Entitic mass] 29.3 pg Normal 24.7-34.3 [facility] Comment on above: Performed By: #### R EDIL PANEL UPP., BIOFIRECOVDET #### [facility] [address] [place] [address] MCHC Auto (RBC) [Mass/Vol]Or dered By: Sushma Nascimento on 09-21-2023 MCHC (RBC) [Mass/Vol] 31.5 g/dL Low 32.0-35.0 [facility] MCV [Entitic volume] by Auto mated countOrdered By: Sushma Nascimento on 09-21-2023 MCV (RBC) [Entitic vol] 92.8 fL Normal 80-100 [facility] Comment on above: Performed By: #### R EDIL PANEL UPP., BIOFIRECOVDET #### [facility] [address] Monocyte distribution width [Entitic volume] in Blood by AutomatedOrdered By: Sushma Nascimento on 09-21-2023 Monocyte distribution width Auto (Bld) [Entitic vol] 19.97 % 0.00-20.00 [facility] Neutrophils [#/volume] in Bl ood by Automated countOrdered By: Sushma Nascimento on 09-21-2023 Neutrophils (Bld) [#/Vol] 10.2 10*3/uL High 1.8-7.7 [facility] Comment on above: Performed By: #### R EDIL PANEL UPP., BIOFIRECOVDET #### [facility] [address] [place] [address] Nitrite Test strip Ql (U)Ord ered By: Sushma Nascimento on 09-21-2023 Nitrite Ql (U) Negative Negative [facility] No Panel InformationOrdered By: Sushma Nascimento on 09-21-2023 Estimated GFR (CKD-EPI) > 60.0 mL/Min [facility] Creatinine Clearance (Chem 44.06 [facility] Nucleated erythrocytes [Pres ence] in Blood by Automated countOrdered By: Sushma Nascimento on 09-21-2023 Nucleated RBC Auto Ql (Bld) 0.1 /100{WBC} 0-0.5 [facility] Opiates [Presence] in Urine by Screen methodOrdered By: Sushma Nascimento on 09-21-2023 Opiates Screen Ql (U) Negative Negative [facility] Phencyclidine Screen Ql (U)O rdered By: Sushma Nascimento on 09-21-2023 Phencyclidine Ql (U) Negative Negative [facility] Platelet mean volume [Entiti c volume] in Blood by Automated countOrdered By: Sushma Nascimento on 09-21-2023 Platelet mean volume (Bld) [Entitic vol] 8.0 fL Normal 6.3-10.7 [facility] Comment on above: Performed By: #### R EDIL PANEL UPP., BIOFIRECOVDET #### [address] Platelets [#/volume] in Bloo d by Automated countOrdered By: Sushma Nascimento on 09-21-2023 Platelets (Bld) [#/Vol] 181 10*3/uL Normal 150-450 [facility] Comment on above: Performed By: #### R EDIL PANEL UPP., BIOFIRECOVDET #### [address] Potassium [Moles/volume] in Serum or PlasmaOrdered By: Sushma Nascimento on 09-21-2023 Potassium [Moles/Vol] 4.4 mmol/L Normal 3.5-5.1 [facility] Comment on above: Performed By: #### R EDIL PANEL UPP., BIOFIRECOVDET #### [address] Protein [Mass/volume] in Ser um or PlasmaOrdered By: Sushma Nascimento on 09-21-2023 Protein [Mass/Vol] 6.8 g/dL Normal 6.4-8.9 [facility] Comment on above: Performed By: #### R EDIL PANEL UPP., BIOFIRECOVDET #### [address] Serum globulin measurement b y calculation (mass/volume)Ordered By: Sushma Nascimento on 09-21-2023 Globulin (S) [Mass/Vol] 3.2 g/dL [facility] Comment on above: Performed By: #### R EDIL PANEL UPP., BIOFIRECOVDET #### [address] Serum or plasma albumin/glob ulin mass ratioOrdered By: Sushma Nascimento on 09-21-2023 Albumin/Globulin [Mass ratio] 1.1 {ratio} [facility] Comment on above: Performed By: #### R EDIL PANEL UPP., BIOFIRECOVDET #### [facility] [address] Serum or plasma anion gap de terminationOrdered By: Sushma Nascimento on 09-21-2023 Anion gap [Moles/Vol] 8.4 mmol/L Normal 6.0-15.0 [facility] Comment on above: Performed By: #### R EDIL PANEL UPP., BIOFIRECOVDET #### [address] Sodium [Moles/volume] in Ser um or PlasmaOrdered By: Sushma Nascimento on 09-21-2023 Sodium [Moles/Vol] 139 mmol/L Normal 136-145 [facility] Comment on above: Performed By: #### R EDIL PANEL UPP., BIOFIRECOVDET #### [facility] [address] [place] [address] Specific gravity Auto test s trip (U) [Rel density]Ordered By: Sushma Nascimento on 09-21-2023 Specific gravity (U) [Rel density] 1.022 1.001-1.03 0 [facility] Troponin I High Sensitivityo n 09-21-2023 Troponin I High Sensitivity 7.6 pg/mL Normal 0.0-15.0 [facility] Comment on above: Result Comment: PERF ORMED BY: [place] [address] PATHOLOGIST [employer] SRINATH MENDIOLA M.D. Performed By: #### H S TROP ####[facility] [id number] [place] [address] Troponin I.cardiac [Mass/vol ume] in Serum or Plasma by Detection limit <= 0.01 ng/Ordered By: Sushma Nascimento on 09-21-2023 Troponin I.cardiac DL <= 0.01 ng/mL [Mass/Vol] 7.6 pg/mL 0.0-15.0 [facility] Urea nitrogen [Mass/volume] in Serum or PlasmaOrdered By: Sushma Nascimento on 09-21-2023 Urea nitrogen [Mass/Vol] 16 mg/dL Normal 7-25 [facility] Comment on above: Performed By: #### R EDIL PANEL UPP., BIOFIRECOVDET #### [facility] [address] Urine clarity by refractomet ry automatedOrdered By: Sushma Nascimento on 09-21-2023 Clarity Refractometry automated (U) Cloudy Abnormal Clear [facility] Urine glucose measurement by automated test strip (mass/volume)Ordered By: Sushma Nascimento on 09-21-2023 Glucose Auto test strip (U) [Mass/Vol] Normal mg/dL Normal [facility] Urine hemoglobin detection b y automated test stripOrdered By: Sushma Nascimento on 09-21-2023 Hemoglobin Auto test strip Ql (U) Negative Negative [facility] Urine leukocyte esterase det ection by automated test stripOrdered By: Sushma Nascimento on 09-21-2023 Leukocyte esterase Auto test strip Ql (U) 1+ High Negative [facility] Urine pH measurement by auto mated test stripOrdered By: Sushma Nascimento on 09-21-2023 pH (U) 5.5 [pH] Normal 5.0-9.0 [facility] Comment on above: Order Comment: Name Collection Type:: Clean-Voided Midstream Performed By: #### R EDIL PANEL UPP., BIOFIRECOVDET #### [facility] [address] [place] [address] Urine protein measurement by automated test strip (mass/volume)Ordered By: Sushma Nascimento on 09-21-2023 Protein (U) [Mass/Vol] 30 mg/dL High Negative [facility] Comment on above: Order Comment: Name Collection Type:: Clean-Voided Midstream Performed By: #### R EDIL PANEL UPP., BIOFIRECOVDET #### [facility] [address] [place] [address] Urobilinogen Auto test strip (U) [Mass/Vol]Ordered By: Sushma Nascimento on 09-21-2023 Urobilinogen (U) [Mass/Vol] mg/dL High Normal [facility] Activated partial thrombopla stin time (aPTT) in platelet poor plasma by coagulation aOrdered By: Don Rapp on 08-17-2023 aPTT Coag (PPP) [Time] 33.5 s 25.1-36.[address] [facility] Comment on above: A hematocrit value g reater than 55% may lead to inaccurate results in coagulation testing. Patients having hematocrit values >55% require a special collection tube for coagulation studies. Please contact the laboratory at [phone] for redraw instructions. Alanine aminotransferase [En zymatic activity/volume] in Serum or PlasmaOrdered By: Don Rapp on 08-17-2023 ALT [Catalytic activity/Vol] 23 U/L Normal 7-52 [facility] Comment on above: Performed By: #### M G, HS TROP, BNP, CBC, PTT, PT, CMP, CK #### [address] Albumin [Mass/volume] in Ser um or Plasma by Bromocresol green (BCG) dye binding methoOrdered By: Don Rapp on 08-17-2023 Albumin BCG dye [Mass/Vol] 3.4 g/dL Low 3.5-5.7 [facility] Alkaline phosphatase [Enzyma tic activity/volume] in Serum or PlasmaOrdered By: Don Rapp on 08-17-2023 ALP [Catalytic activity/Vol] 92 U/L Normal 34-104 [facility] Comment on above: Performed By: #### M G, HS TROP, BNP, CBC, PTT, PT, CMP, CK #### [address] Arterial Blood Gason 024 ABG Base Excess -1.3 mmol/L Normal -3.0-3.0 [facility] Comment on above: Performed By: #### R EDIL PANEL UPP., BIOFIRECOVDET #### [address] ABG Frac Inspired O2 21 % Normal [facility] Comment on above: Performed By: #### R EDIL PANEL UPP., BIOFIRECOVDET #### [address] ABG Oxygen Content 6.6 mmol/L Normal 6.6-9.7 [facility] Comment on above: Performed By: #### R EDIL PANEL UPP., BIOFIRECOVDET #### [address] ABG Oxygen Saturation 96.0 % Normal 95.0-100.0 [facility] Comment on above: Performed By: #### R EDIL PANEL UPP., BIOFIRECOVDET #### [address] ABG PCO2 38.7 mm[Hg] Normal 35.0-45.0 [facility] Comment on above: Performed By: #### R EDIL PANEL UPP., BIOFIRECOVDET #### [address] ABG PH 7.40 Normal 7.35-7.45 [facility] Comment on above: Performed By: #### R EDIL PANEL UPP., BIOFIRECOVDET #### [address] ABG PO2 78.7 mm[Hg] Low 80.0-100.0 [facility] Comment on above: Performed By: #### R EDIL PANEL UPP., BIOFIRECOVDET #### [address] Respiratory Critical Normal [facility] Comment on above: Result Comment: Crit ical Value called on: 08/17/2023 at 14:28 PERFORMED BY: [place] [address] PATHOLOGIST [employer] SRINATH MENDIOLA M.D. Performed By: #### R EDIL PANEL UPP., BIOFIRECOVDET #### [address] VBG Draw Site Left Radial Normal [facility] Comment on above: Performed By: #### R EDIL PANEL UPP., BIOFIRECOVDET #### [address] Arterial Blood GasOrdered By : Don Rapp on 08-17-2023 CO2 [Moles/Vol] 24.5 mmol/L Normal 23.0-27.0 [facility] Comment on above: Performed By: #### R EDIL PANEL UPP., BIOFIRECOVDET #### [address] HCO3 (Bld) [Moles/Vol] 23.3 mmol/L Normal 23.0-29.0 [facility] Comment on above: Performed By: #### R EDIL PANEL UPP., BIOFIRECOVDET #### [address] Aspartate aminotransferase [ Enzymatic activity/volume] in Serum or PlasmaOrdered By: Don Rapp on 08-17-2023 AST [Catalytic activity/Vol] 27 U/L Normal 13-39 [facility] Comment on above: Performed By: #### M G, HS TROP, BNP, CBC, PTT, PT, CMP, CK #### [address] Automated basophil %Ordered By: Don Rapp on 08-17-2023 Basophils/100 WBC (Bld) 1.2 % Normal . [facility] Comment on above: Performed By: #### M G, HS TROP, BNP, CBC, PTT, PT, CMP, CK #### [address] Automated basophil countOrde red By: Don Rapp on 08-17-2023 Basophils (Bld) [#/Vol] 0.0 10*3/uL Normal 0.0-0.2 [facility] Comment on above: Result Comment: PERF ORMED BY: [place] [address] PATHOLOGIST [employer] SRINATH MENDIOLA M.D. Performed By: #### M G, HS TROP, BNP, CBC, PTT, PT, CMP, CK #### [address] Automated blood monocyte cou ntOrdered By: Don Rapp on 08-17-2023 Monocytes (Bld) [#/Vol] 0.4 10*3/uL Normal 0.0-0.8 [facility] Comment on above: Performed By: #### M G, HS TROP, BNP, CBC, PTT, PT, CMP, CK #### [facility] [address] Automated eosinophil %Ordere d By: Don Rapp on 08-17-2023 Eosinophils/100 WBC (Bld) 0.8 % Normal . [facility] Comment on above: Performed By: #### M G, HS TROP, BNP, CBC, PTT, PT, CMP, CK #### [address] Automated eosinophil countOr dered By: Don Rapp on 08-17-2023 Eosinophils (Bld) [#/Vol] 0.0 10*3/uL Normal 0.0-0.45 [facility] Comment on above: Performed By: #### M G, HS TROP, BNP, CBC, PTT, PT, CMP, CK #### [address] Automated epithelial cells c ount in urine sediment (number/area)Ordered By: Don Rapp on 08-17-2023 Epithelial cells Auto (Urine sed) [#/Area] 0-1 [HPF] 0-2 [facility] Automated monocyte %Ordered By: Don Rapp on 08-17-2023 Monocytes/100 WBC (Bld) 9.1 % Normal . [facility] Comment on above: Performed By: #### M G, HS TROP, BNP, CBC, PTT, PT, CMP, CK #### [address] Automated neutrophil %Ordere d By: Don Rapp on 08-17-2023 Neutrophils/100 WBC (Bld) 55.2 % Normal . [facility] Comment on above: Performed By: #### M G, HS TROP, BNP, CBC, PTT, PT, CMP, CK #### [address] BNP ser/plasOrdered By: Annette Rapp on 08-17-2023 Natriuretic peptide B (Bld) [Mass/Vol] 234.0 pg/mL High 5-100 [facility] Comment on above: Result Comment: PERF ORMED BY: [place] [address] PATHOLOGIST [employer] SRINATH MENDIOLA M.D. Performed By: #### M G, HS TROP, BNP, CBC, PTT, PT, CMP, CK #### [facility] [address] [place] [address] Bacteria [Presence] in Urine by AutomatedOrdered By: Don Rapp on 08-17-2023 Bacteria Auto Ql (U) None seen [HPF] None Seen [facility] Bilirubin Test strip Ql (U)O rdered By: Don Rapp on 08-17-2023 Bilirubin Ql (U) Negative Negative [facility] Bilirubin.total [Mass/volume ] in Serum or PlasmaOrdered By: Don Rapp on 08-17-2023 Bilirubin [Mass/Vol] 0.7 mg/dL Normal 0.3-1.0 [facility] Comment on above: Performed By: #### M G, HS TROP, BNP, CBC, PTT, PT, CMP, CK #### [address] BioFire Detectedon BioFire Detected Detected Critically abnormal Not Detecte [facility] Comment on above: Result Comment: This is a duplicate RP2.1 COVID (PCR) result to be used for statistical tracking purpose only. PERFORMED BY: [place] [address] PATHOLOGIST [employer] SRINATH MENDIOLA M.D. Performed By: #### R EDIL PANEL UPP., BIOFIRECOVDET #### [facility] [address] [place] [address] COVID-19 Detected/Not Detect edOrdered By: Don Rapp on 08-17-2023 SARS-CoV-2 (COVID-19) RNA SANDIP+non-probe Ql (Nph) Detected Abnormal Not Detecte [facility] Comment on above: This is a duplicate RP2.1 COVID (PCR) result to be used for statistical tracking purpose only. Calcium [Mass/volume] in Ser um or PlasmaOrdered By: Don Rapp on 08-17-2023 Calcium [Mass/Vol] 8.8 mg/dL Normal 8.6-10.3 [facility] Comment on above: Performed By: #### M G, HS TROP, BNP, CBC, PTT, PT, CMP, CK #### [facility] [address] Carbon dioxide, total [Moles /volume] in Serum or PlasmaOrdered By: Don Rapp on 08-17-2023 CO2 [Moles/Vol] 28.7 mmol/L Normal 21.0-31.0 [facility] Comment on above: Performed By: #### M G, HS TROP, BNP, CBC, PTT, PT, CMP, CK #### [address] Chloride [Moles/volume] in S piter or PlasmaOrdered By: Don Rapp on 08-17-2023 Chloride [Moles/Vol] 104 mmol/L Normal 98-107 [facility] Comment on above: Performed By: #### M G, HS TROP, BNP, CBC, PTT, PT, CMP, CK #### [address] Color of Urine by AutoOrdere d By: Don Rapp on 08-17-2023 Color (U) Yellow Normal Yellow [facility] Comment on above: Order Comment: Name Collection Type:: Clean-Voided Midstream Performed By: #### R EDIL PANEL UPP., BIOFIRECOVDET #### [address] Complete Blood Count Auto Di ffon 08-17-2023 Mean Corpuscular HGB Conc 32.3 g/dL Normal 32.0-35.0 [facility] Comment on above: Performed By: #### M G, HS TROP, BNP, CBC, PTT, PT, CMP, CK #### [address] Monocytes/100 WBC (Bld) 21.58 % High 0.00-20.00 [facility] Comment on above: Result Comment: For adults in ED, MDW > 20.0 may be associated with a higher risk of sepsis during the first 12 hrs of hospital admission Performed By: #### M G, HS TROP, BNP, CBC, PTT, PT, CMP, CK #### [address] NRBC% 0.1 /100{WBC} Normal 0-0.5 [facility] Comment on above: Performed By: #### M G, HS TROP, BNP, CBC, PTT, PT, CMP, CK #### [address] Comprehensive Metabolic Pane phi 08-17-2023 Albumin [Mass/Vol] 3.4 g/dL Low 3.5-5.7 [facility] Comment on above: Performed By: #### M G, HS TROP, BNP, CBC, PTT, PT, CMP, CK #### [address] Creatinine Clr Calc Pharmacy 43.24 Normal [facility] Comment on above: Performed By: #### M G, HS TROP, BNP, CBC, PTT, PT, CMP, CK #### [address] GFR/1.73 sq M.predicted MDRD (S/P/Bld) [Vol rate/Area] mL/min/{1.73_m2} Normal [facility] Comment on above: Performed By: #### M G, HS TROP, BNP, CBC, PTT, PT, CMP, CK #### [address] Creatine kinase [Enzymatic a ctivity/volume] in Serum or PlasmaOrdered By: Don Rapp on 08-17-2023 CK [Catalytic activity/Vol] 38 U/L Normal 30-223 [facility] Comment on above: Performed By: #### R EDIL PANEL UPP., BIOFIRECOVDET #### [address] Creatinine [Mass/volume] in Serum or PlasmaOrdered By: Don Rapp on 08-17-2023 Creatinine [Mass/Vol] 0.67 mg/dL Normal 0.60-1.20 [facility] Comment on above: Performed By: #### M G, HS TROP, BNP, CBC, PTT, PT, CMP, CK #### [place] [address] [place] Dipstick and Microscopicon 0 08-17-2023 Appearance (U) Clear Normal Clear [facility] Comment on above: Order Comment: Name Collection Type:: Clean-Voided Midstream Performed By: #### R EDIL PANEL UPP., BIOFIRECOVDET #### [address] Bacteria,Urine None Seen Normal None Seen [facility] Comment on above: Order Comment: Name Collection Type:: Clean-Voided Midstream Performed By: #### R EDIL PANEL UPP., BIOFIRECOVDET #### [address] Bilirubin,Urine Negative Normal Negative [facility] Comment on above: Order Comment: Name Collection Type:: Clean-Voided Midstream Performed By: #### R EDIL PANEL UPP., BIOFIRECOVDET #### [address] Glucose Ql (U) Normal Normal Normal [facility] Comment on above: Order Comment: Name Collection Type:: Clean-Voided Midstream Performed By: #### R EDIL PANEL UPP., BIOFIRECOVDET #### [place] [address] [place] Hyaline Casts,Urine 0-8 Normal 0-8 [facility] Comment on above: Order Comment: Name Collection Type:: Clean-Voided Midstream Result Comment: PERF ORMED BY: [place] [address] PATHOLOGIST COMMERCIAL DIVER SRINATH MENDIOLA M.D. Performed By: #### R EDIL PANEL UPP., BIOFIRECOVDET #### [address] Ketones Ql (U) Trace High Negative [facility] Comment on above: Order Comment: Name Collection Type:: Clean-Voided Midstream Performed By: #### R EDIL PANEL UPP., BIOFIRECOVDET #### [address] Leukocyte esterase Test strip Ql (U) Negative Normal Negative [facility] Comment on above: Order Comment: Name Collection Type:: Clean-Voided Midstream Performed By: #### R EDIL PANEL UPP., BIOFIRECOVDET #### [address] Nitrite,Urine Negative Normal Negative [facility] Comment on above: Order Comment: Name Collection Type:: Clean-Voided Midstream Performed By: #### R EDIL PANEL UPP., BIOFIRECOVDET #### [address] Occult Blood,Urine Negative Normal Negative [facility] Comment on above: Order Comment: Name Collection Type:: Clean-Voided Midstream Result Comment: PERF ORMED BY: [place] [address] PATHOLOGIST [employer]ERCIAL DIVER SRINATH MENDIOLA M.D. Performed By: #### R EDIL PANEL UPP., BIOFIRECOVDET #### [address] RBC LM.HPF (Urine sed) [#/Area] 0 /[HPF] Normal 0-4 [facility] Comment on above: Order Comment: Name Collection Type:: Clean-Voided Midstream Performed By: #### R EDIL PANEL UPP., BIOFIRECOVDET #### [address] Specificy [place],Urine 1.014 Normal 1.001-1.03 0 [facility] Comment on above: Order Comment: Name Collection Type:: Clean-Voided Midstream Performed By: #### R EDIL PANEL UPP., BIOFIRECOVDET #### [address] Squamous Epithelial Cell,Urine 0-1 Normal 0-2 [facility] Comment on above: Order Comment: Name Collection Type:: Clean-Voided Midstream Performed By: #### R EDIL PANEL UPP., BIOFIRECOVDET #### [address] Urobilinogen,Urine Normal Normal Normal [facility] Comment on above: Order Comment: Name Collection Type:: Clean-Voided Midstream Performed By: #### R EDIL PANEL UPP., BIOFIRECOVDET #### [address] WBC LM.HPF (Urine sed) [#/Area] 0 /[HPF] Normal 0-4 [facility] Comment on above: Order Comment: Name Collection Type:: Clean-Voided Midstream Performed By: #### R EDIL PANEL UPP., BIOFIRECOVDET #### [address] ECG 12 lead ECGon 08-17-2023 ECG 12 lead ECG [facility] Main [place] [address] [place] [address] Electrocardiograph Report Signed Patient: Quin Perez MR#: [id number] : 1950 Acct:[id number] Age/Sex: 73 / F ADM Date: 08/17/23 Loc: ER Room: Type: [facility] ER Attending Dr: Ordering Provider: Don Rapp PA-C Date of Service: 08/17/23 ECG/ECG 12 lead ECG: Shortness of Breath/Dyspnea Copies to: Test Reason : Blood Pressure : / mmHG Vent. Rate : 067 BPM Atrial Rate : 067 BPM P-R Int : 122 ms QRS Dur : 084 ms QT Int : 418 ms P-R-T Axes : 067 002 074 degrees QTc Int : 441 ms Normal sinus rhythm Low voltage QRS Anterolateral infarct , age undetermined Abnormal ECG No previous ECGs available Confirmed by SUSHMA NASCIMENTO DO ([id number]) on 08/17/2023 7:58:05 PM Referred By: Electronically Signed By:SUSHMA NASCIMENTO DO Transcribed By: MUS Signed By Sushma Nascimento DO 08/16 Normal [facility] Erythrocyte distribution wid th [Ratio] by Automated countOrdered By: Don Rapp on 08-17-2023 Erythrocyte distribution width (RBC) [Ratio] 14.8 % Normal 11.9-15.3 [facility] Comment on above: Performed By: #### M G, HS TROP, BNP, CBC, PTT, PT, CMP, CK #### [facility] [address] Erythrocytes [#/area] in Uri ne sediment by Automated countOrdered By: Don Rapp on 08-17-2023 RBC Auto (Urine sed) [#/Area] 0-1 [HPF] 0-4 [facility] Erythrocytes [#/volume] in B lood by Automated countOrdered By: Don Rapp on 08-17-2023 RBC (Bld) [#/Vol] 4.06 10*6/uL Normal 3.60-5.00 [facility] Comment on above: Performed By: #### M G, HS TROP, BNP, CBC, PTT, PT, CMP, CK #### [address] Glucose [Mass/volume] in Ser um or PlasmaOrdered By: Don Rapp on 08-17-2023 Glucose [Mass/Vol] 79 mg/dL Normal 70-100 [facility] Comment on above: ADA recommended refe rence rangeRandom Glucose Reference Range is dependent on time and content of last meal. Glucose of more than 200 mg/dL in a nonstressed, ambulatory subject supports the diagnosis of Diabetes Mellitus. Result Comment: [place] om Glucose Reference Range is dependent on time and content of last meal. Glucose of more than 200 mg/dL in a nonstressed, ambulatory subject supports the diagnosis of Diabetes Mellitus. ADA recommended reference range Performed By: #### M G, HS TROP, BNP, CBC, PTT, PT, CMP, CK #### [facility] [address] Hematocrit [Volume Fraction] of Blood by Automated countOrdered By: Don Rapp on 08-17-2023 Hematocrit (Bld) [Volume fraction] 38.3 % Normal 34.0-46.4 [facility] Comment on above: Performed By: #### M G, HS TROP, BNP, CBC, PTT, PT, CMP, CK #### [facility] [address] Hemoglobin [Mass/volume] in BloodOrdered By: Don Rapp on 08-17-2023 Hemoglobin (Bld) [Mass/Vol] 12.4 g/dL Normal 11.8-15.4 [facility] Comment on above: Performed By: #### M G, HS TROP, BNP, CBC, PTT, PT, CMP, CK #### [facility] [address] INR in Platelet poor plasma by Coagulation assayOrdered By: Don Rapp on 08-17-2023 INR Coag (PPP) [Relative time] 0.9 {INR} Normal [facility] Comment on above: INR Therapeutic Rang e A) Pre- and Peroperative OAT started two weeks before surgery. NOT HIP SURGERY: 1.5 - 2.5 HIP SURGERY: 2 - 3B) Primary and secondary prevention of venous THROMBOSIS: 2 - 3C) Active venous thrombosis, pulmonary embolismand prevention of recurrent venous thrombosis: 2 - 3D) Prevention of arterial thromboembolismincluding patients with mechanical heart valves: 3 - 4.5 Result Comment: INR Therapeutic Range A) Pre- and Peroperative OAT started two weeks before surgery. NOT HIP SURGERY: 1.5 - 2.5 HIP SURGERY: 2 - 3 B) Primary and secondary prevention of venous THROMBOSIS: 2 - 3 C) Active venous thrombosis, pulmonary embolism and prevention of recurrent venous thrombosis: 2 - 3 D) Prevention of arterial thromboembolism including patients with mechanical heart valves: 3 - 4.5 Performed By: #### M G, HS TROP, BNP, CBC, PTT, PT, CMP, CK #### [facility] [address] Ketones Auto test strip (U) [Mass/Vol]Ordered By: Don Rapp on 08-17-2023 Ketones (U) [Mass/Vol] Trace High Negative [facility] Laboratory - UrinalysisOrder ed By: Don Rapp on 08-17-2023 Hyaline casts LM Ql (Urine sed) 0-8 [LPF] 0-8 [facility] Leukocytes [#/area] in Urine sediment by Automated countOrdered By: Dno Rapp on 08-17-2023 WBC Auto (Urine sed) [#/Area] 0-1 [HPF] 0-4 [facility] Leukocytes [#/volume] correc joe for nucleated erythrocytes in Blood by Automated counOrdered By: Don Rapp on 08-17-2023 WBC corrected for nucl RBC Auto (Bld) [#/Vol] 4.1 10*3/uL 3.8-11.6 [facility] Leukocytes [#/volume] in Blo od by Automated countOrdered By: Don Rapp on 08-17-2023 WBC (Bld) [#/Vol] 4.1 10*3/uL Normal 3.8-11.6 [facility] Comment on above: Performed By: #### M G, HS TROP, BNP, CBC, PTT, PT, CMP, CK #### [facility] [address] [place] [address] [place] Lymphocytes [#/volume] in Bl ood by Automated countOrdered By: Don Rapp on 08-17-2023 Lymphocytes (Bld) [#/Vol] 1.4 10*3/uL Normal 1.00-4.8 [facility] Comment on above: Performed By: #### M G, HS TROP, BNP, CBC, PTT, PT, CMP, CK #### [facility] [address] [place] [id number] [place] Lymphocytes/100 leukocytes i n Blood by Automated countOrdered By: Don Rapp on 08-17-2023 Lymphocytes/100 WBC (Bld) 33.7 % Normal . [facility] Comment on above: Performed By: #### M G, HS TROP, BNP, CBC, PTT, PT, CMP, CK #### [facility] [address] [place] [id number] [place] MCH [Entitic mass] by Automa joe countOrdered By: Don Rapp on 08-17-2023 MCH (RBC) [Entitic mass] 30.4 pg Normal 24.7-34.3 [facility] Comment on above: Performed By: #### M G, HS TROP, BNP, CBC, PTT, PT, CMP, CK #### [facility] [address] [place] [address] MCHC Auto (RBC) [Mass/Vol]Or dered By: Don Rapp on 08-17-2023 MCHC (RBC) [Mass/Vol] 32.3 g/dL 32.0-35.0 [facility] MCV [Entitic volume] by Auto mated countOrdered By: Don Rapp on 08-17-2023 MCV (RBC) [Entitic vol] 94.3 fL Normal 80-100 [facility] Comment on above: Performed By: #### M G, HS TROP, BNP, CBC, PTT, PT, CMP, CK #### [facility] [address] [place] [address] Magnesium [Mass/volume] in S piter or PlasmaOrdered By: Don Rapp on 08-17-2023 Magnesium [Mass/Vol] 1.8 mg/dL Low 1.9-2.7 [facility] Comment on above: Result Comment: PERF ORMED BY: [place] [address] PATHOLOGIST [employer]ERCIAL DIVER SRINATH MENDIOLA M.D. Performed By: #### M G, HS TROP, BNP, CBC, PTT, PT, CMP, CK #### [address] Monocyte distribution width [Entitic volume] in Blood by AutomatedOrdered By: Don Rapp on 08-17-2023 Monocyte distribution width Auto (Bld) [Entitic vol] 21.58 % High 0.00-20.00 [facility] Comment on above: For adults in ED, MD W > 20.0 may be associated with a higher risk of sepsis during the first 12 hrs of hospital admission Neutrophils [#/volume] in Bl ood by Automated countOrdered By: Don Rapp on 08-17-2023 Neutrophils (Bld) [#/Vol] 2.3 10*3/uL Normal 1.8-7.7 [facility] Comment on above: Performed By: #### M G, HS TROP, BNP, CBC, PTT, PT, CMP, CK #### [facility] [address] Nitrite Test strip Ql (U)Ord ered By: Don Rapp on 08-17-2023 Nitrite Ql (U) Negative Negative [facility] No Panel InformationOrdered By: Don Rapp on 08-17-2023 Arterial Blood Base Excess -1.3 mmol/L -3.0-3.0 [facility] Arterial Blood Oxygen Content 6.6 mmol/L 6.6-9.7 [facility] Arterial Blood Oxygen Saturation 96.0 % 95.0-100.0 [facility] Arterial Blood Partial Pressure CO2 38.7 mm[Hg] 35.0-45.0 [facility] Arterial Blood Partial Pressure O2 78.7 mm[Hg] Low 80.0-100.0 [facility] Arterial Blood pH 7.40 7.35-7.45 [facility] Blood Gas Critical Value See comment [facility] Comment on above: Critical Value rivera d on: 08/17/2023 at 14:28 Blood Gas Sample Site Left radial [facility] FiO2 21 % [facility] Estimated GFR (CKD-EPI) > 60.0 mL/Min [facility] Creatinine Clearance (Chem 43.24 [facility] Nucleated erythrocytes [Pres ence] in Blood by Automated countOrdered By: Don Rapp on 08-17-2023 Nucleated RBC Auto Ql (Bld) 0.1 /100{WBC} 0-0.5 [facility] Partial Thromboplastin Timeo n 08-17-2023 aPTT Coag (Bld) [Time] 33.5 s Normal 25.1-36.5 [facility] Comment on above: Result Comment: A he matocrit value greater than 55% may lead to inaccurate results in coagulation testing. Patients having hematocrit values >55% require a special collection tube for coagulation studies. Please contact the laboratory at [phone] for redraw instructions. PERFORMED BY: [place] [address] PATHOLOGIST [employer]ER[employer] DIVER SRINATH MENDIOLA M.D. Performed By: #### R EDIL PANEL UPP., BIOFIRECOVDET #### [address] Platelet mean volume [Entiti c volume] in Blood by Automated countOrdered By: Don Rapp on 08-17-2023 Platelet mean volume (Bld) [Entitic vol] 8.9 fL Normal 6.3-10.7 [facility] Comment on above: Performed By: #### M G, HS TROP, BNP, CBC, PTT, PT, CMP, CK #### [place] [address] [place] Platelets [#/volume] in Bloo d by Automated countOrdered By: Don Rapp on 08-17-2023 Platelets (Bld) [#/Vol] 142 10*3/uL Low 150-450 [facility] Comment on above: Performed By: #### M G, HS TROP, BNP, CBC, PTT, PT, CMP, CK #### [address] Potassium [Moles/volume] in Serum or PlasmaOrdered By: Don Rapp on 08-17-2023 Potassium [Moles/Vol] 4.3 mmol/L Normal 3.5-5.1 [facility] Comment on above: Hemolysis is present at a level that could interfere with the result.Contact lab if redraw is required Result Comment: Hemo lysis is present at a level that could interfere with the result. Contact lab if redraw is required Performed By: #### M G, HS TROP, BNP, CBC, PTT, PT, CMP, CK #### [place] [address] [place] Protein [Mass/volume] in Ser um or PlasmaOrdered By: Don Rapp on 08-17-2023 Protein [Mass/Vol] 6.5 g/dL Normal 6.4-8.9 [facility] Comment on above: Performed By: #### M G, HS TROP, BNP, CBC, PTT, PT, CMP, CK #### [facility] [address] [place] [id number] [place] Prothrombin time (PT)Ordered By: Don Rapp on 08-17-2023 PT Coag (PPP) [Time] 10.7 s Normal 9.0-12.9 [facility] Comment on above: A hematocrit value g reater than 55% may lead to inaccurate results in coagulation testing. Patients having hematocrit values >55% require a special collection tube for coagulation studies. Please contact the laboratory at [phone] for redraw instructions. Result Comment: A he matocrit value greater than 55% may lead to inaccurate results in coagulation testing. Patients having hematocrit values >55% require a special collection tube for coagulation studies. Please contact the laboratory at [phone] for redraw instructions. Performed By: #### M G, HS TROP, BNP, CBC, PTT, PT, CMP, CK #### [facility] [address] [place] [id number] [place] Respiratory (Upper) Panel, P CRon 08-17-2023 Respiratory (Upper) Panel, PCR Adenovirus Not detected Bordetella parapertussis Not detected Chlamydia pneumoniae Not detected Coronavirus 229E Not detected Coronavirus HKU1 Not detected Coronavirus NL63 Not detected Coronavirus OC43 Not detected Influenza A Not detected Influenza B Not detected Human Metapneumovirus Not detected Mycoplasma pneumoniae Not detected Parainfluenza Virus 1 Not detected Parainfluenza Virus 2 Not detected Parainfluenza Virus 3 Not detected Parainfluenza Virus 4 Not detected Bordetella pertussis-ptxP Not detected Human Rhino/Enterovirus Not detected Resp. Syncytial Virus Not detected COVID19 Blank Space -- COVID19 Det Results Detected results will only be called to COVID19 Det Results Providers for Inpatients. COVID19 Blank Space -- COVID-19 Detected/Not Detected Detected Blank Space -- FLUA TEST INCLUDES Influenza A tests for the following clinically FLUA TEST INCLUDES significant subtypes: FLUA TEST INCLUDES - Influenza A FLUA TEST INCLUDES - Influenza A H1 FLUA TEST INCLUDES - Influenza A H1 2009 FLUA TEST INCLUDES - Influenza A H3 Blank Space -- PERFORMED BY: [place] [address] PATHOLOGIST [employer]ERCIAL DIVER SRINATH MENDIOLA M.D. Normal [facility] Comment on above: Performed By: #### R EDIL PANEL UPP., BIOFIRECOVDET #### [address] Respiratory pathogens DNA an d RNA panel - Nasopharynx by SANDIP with non-probe detectionOrdered By: Don Rapp on 08-17-2023 Respiratory pathogens DNA and RNA panel SANDIP+non-probe (Nph) [facility] Serum globulin measurement b y calculation (mass/volume)Ordered By: Don Rapp on 08-17-2023 Globulin (S) [Mass/Vol] 3.1 g/dL [facility] Comment on above: Performed By: #### M G, HS TROP, BNP, CBC, PTT, PT, CMP, CK #### [address] Serum or plasma albumin/glob ulin mass ratioOrdered By: Don Rapp on 08-17-2023 Albumin/Globulin [Mass ratio] 1.1 {ratio} [facility] Comment on above: Performed By: #### M G, HS TROP, BNP, CBC, PTT, PT, CMP, CK #### [facility] [address] [place] [address] Serum or plasma anion gap de terminationOrdered By: Don Rapp on 08-17-2023 Anion gap [Moles/Vol] 10.6 mmol/L Normal 6.0-15.[address] [facility] Comment on above: Performed By: #### M G, HS TROP, BNP, CBC, PTT, PT, CMP, CK #### [facility] [address] [place] [address] Sodium [Moles/volume] in Ser um or PlasmaOrdered By: Don Rapp on 08-17-2023 Sodium [Moles/Vol] 139 mmol/L Normal 136-145 [facility] Comment on above: Performed By: #### M G, HS TROP, BNP, CBC, PTT, PT, CMP, CK #### [address] Specific gravity Auto test s trip (U) [Rel density]Ordered By: Don Rapp on 08-17-2023 Specific gravity (U) [Rel density] 1.014 1.001-1.03 0 [facility] Troponin I High Sensitivityo n 08-17-2023 Troponin I High Sensitivity 4.2 pg/mL Normal 0.0-15.0 [facility] Comment on above: Result Comment: PERF ORMED BY: [place] [address] PATHOLOGIST [employer]ER[employer] DIVER SRINATH MENDIOLA M.D. Performed By: #### R EDIL PANEL UPP., BIOFIRECOVDET #### [address] Troponin I.cardiac [Mass/vol ume] in Serum or Plasma by Detection limit <= 0.01 ng/Ordered By: Don Rapp on 08-17-2023 Troponin I.cardiac DL <= 0.01 ng/mL [Mass/Vol] 4.2 pg/mL 0.0-15.0 [facility] Urea nitrogen [Mass/volume] in Serum or PlasmaOrdered By: Don Rapp on 08-17-2023 Urea nitrogen [Mass/Vol] 12 mg/dL Normal 7-25 [facility] Comment on above: Performed By: #### M G, HS TROP, BNP, CBC, PTT, PT, CMP, CK #### [facility] [address] Urine clarity by refractomet ry automatedOrdered By: Don Rapp on 08-17-2023 Clarity Refractometry automated (U) Clear Clear [facility] Urine glucose measurement by automated test strip (mass/volume)Ordered By: Don Rapp on 08-17-2023 Glucose Auto test strip (U) [Mass/Vol] Normal mg/dL Normal [facility] Urine hemoglobin detection b y automated test stripOrdered By: Don Rapp on 08-17-2023 Hemoglobin Auto test strip Ql (U) Negative Negative [facility] Urine leukocyte esterase det ection by automated test stripOrdered By: Don Rapp on 08-17-2023 Leukocyte esterase Auto test strip Ql (U) Negative Negative [facility] Urine pH measurement by auto mated test stripOrdered By: Don Rapp on 08-17-2023 pH (U) 5.5 [pH] Normal 5.0-9.0 [facility] Comment on above: Order Comment: Name Collection Type:: Clean-Voided Midstream Performed By: #### R EDIL PANEL UPP., BIOFIRECOVDET #### [facility] [address] [place] [address] Urine protein measurement by automated test strip (mass/volume)Ordered By: Don Rapp on 08-17-2023 Protein (U) [Mass/Vol] 30 mg/dL High Negative [facility] Comment on above: Order Comment: Name Collection Type:: Clean-Voided Midstream Performed By: #### R EDIL PANEL UPP., BIOFIRECOVDET #### [facility] [address] Urobilinogen Auto test strip (U) [Mass/Vol]Ordered By: Don Rapp on 08-17-2023 Urobilinogen (U) [Mass/Vol] Normal mg/dL Normal [facility] XR chest 2V*on 08-17-2023 XR chest 2V* [facility] [place] [address] [place] [address] XRay Report Signed Patient: Quin Perez MR#: [id number] : 1950 Acct:[id number] Age/Sex: 73 / F ADM Date: 08/17/23 Loc: ER Room: Type: [facility] ER Attending Dr: Copies to: Don Rapp PA-C Ordering Provider: Don Rapp PA-C Date of Service: 08/17/23 XR/XR chest 2V*: Shortness of Breath/Dyspnea PA AND LATERAL CHEST: CLINICAL HISTORY: Cough and shortness of breath. Decreased pulse ox. COMPARISON: None The lungs are hyperinflated. There is no focal parenchymal consolidation, effusion or pneumothorax. The cardiac, hilar and mediastinal silhouettes are within normal limits. There is a prosthetic heart valve. There is no vascular congestion. The visualized bony structures are osteopenic. There is minimal endplate spurring. A lower cervical fusion plate is seen. There is also partially imaged upper lumbar fusion hardware XR/XR chest 2V* IMPRESSION: NO ACUTE CARDIOPULMONARY ABNORMALITY. Impression dictated by: Dayanara Santos M.D.08/17/2023 2:53 PM Dictation Location: [place] [address] Transcribed By: [facility] 08/17/23 1453 Dictated By: Dayanara Santos MD 08/17/23 145 Signed By: 08/17/23 [address] [facility] .GFRon 11-02-2018 GFR Non- >60 Normal [facility] ([place]) Comment on above: Result Comment: GFR Population mean for , Non- Americans Ages 20-29 = 116 mL/min/1.73 sq.m. Ages 30-39 = 107 mL/min/1.73 sq.m. Ages 40-49 = 99 mL/min/1.73 sq.m. Ages 50-59 = 93 mL/min/1.73 sq.m. Ages 60-69 = 85 mL/min/1.73 sq.m. Ages 70+ = 75 mL/min/1.73 sq.m. Chronic Kidney Disease: Less than 60 mL/min/1.73 square meters End Stage Renal Disease: Less than 15 mL/min/1.73 square meters Performed By: #### B MP, GFR #### [address] [address] GFR >60 Normal [facility] ([place]) Comment on above: Result Comment: GFR Population mean for , Non- Americans Ages 20-29 = 116 mL/min/1.73 sq.m. Ages 30-39 = 107 mL/min/1.73 sq.m. Ages 40-49 = 99 mL/min/1.73 sq.m. Ages 50-59 = 93 mL/min/1.73 sq.m. Ages 60-69 = 85 mL/min/1.73 sq.m. Ages 70+ = 75 mL/min/1.73 sq.m. Chronic Kidney Disease: Less than 60 mL/min/1.73 square meters End Stage Renal Disease: Less than 15 mL/min/1.73 square meters Performed By: #### B MP, GFR #### [address] [address] BMPon 11-02-2018 Creatinine [Mass/Vol] 0.93 mg/dL Normal 0.60-1.40 [facility] ([place]) Comment on above: Performed By: #### B MP, GFR #### [address] [address] Urea nitrogen/Creatinine [Mass ratio] 25.8 ratio High 10.0-22.0 [facility] ([place]) Comment on above: Performed By: #### B MP, GFR #### [address] [address] Calcium [Mass/Vol] 8.5 mg/dL Normal 8.4-10.1 [facility] ([place]) Comment on above: Performed By: #### B MP, GFR #### [address] [address] Chloride [Moles/Vol] 109 mmol/L Normal 98-110 [facility] ([place]) Comment on above: Performed By: #### B MP, GFR #### [address] [address] CO2 [Moles/Vol] 25 mmol/L Normal 22-32 [facility] ([place]) Comment on above: Performed By: #### B MP, GFR #### [address] [address] Electrolyte Balance 6.0 mEq/L Normal 4.0-15.0 [facility] ([place]) Comment on above: Performed By: #### B MP, GFR #### [address] [address] Glucose [Mass/Vol] 99 mg/dL Normal 82-115 [facility] ([place]) Comment on above: Performed By: #### B MP, GFR #### [address] [address] Potassium [Moles/Vol] 4.6 mmol/L Normal 3.5-5.0 [facility] ([place]) Comment on above: Performed By: #### B MP, GFR #### [address] [address] Sodium [Moles/Vol] 140 mmol/L Normal 136-145 [facility] ([place]) Comment on above: Performed By: #### B MP, GFR #### [address] [address] Urea nitrogen [Mass/Vol] 24.0 mg/dL High 8.0-22.0 [facility] ([place]) Comment on above: Performed By: #### B MP, GFR #### [address] [address] XR CHEST 2 VIEWSon 9 XR CHEST 2 VIEWS ORIGINAL XR CHEST 2 VIEWS CLINICAL STATEMENT: COPD COMPARISON: 03/12/2017 FINDINGS:Cardiac contours are grossly stable. No change in vascular configuration is identified. There is mild hyperinflation again noted without focal consolidation, pneumothorax, or effusion is present in the aorta. Degenerative changes are present throughout the partially visualized postoperative change to the lumbar spine and cervical spine. IMPRESSION:No acute process Interpreted By: Miesha Cobb MD Preliminary Report By: Miesha Cobb MD Electronically Signed By: Miesha Cobb MD Dictated Date: 11/02/2018 8:35:35 AM Prelim Date: 11/02/2018 8:35:35 AM Sign Date: 11/02/2018 8:36:26 AM Normal [facility] ([place]) B12on 07-19-2018 Cobalamin (Vitamin B12) [Mass/Vol] 379 pg/mL Normal 211-911 [facility] ([place]) Comment on above: Performed By: #### B 12 #### [facility] [address] [place] [id number] Otheron 10-21-2006 CONVERTED ELECTRONIC SIGNATURE ADDIS YO M.D., PATHOLOGIST (Electronic signature on file) Final Signed Out: 10/21/2006 14:48 [facility] CONVERTED FINAL DIAGNOSIS A) GASTRIC BIOPSIES - BENIGN GASTRIC MUCOSA WITHOUT PATHOLOGIC ABNORMALITY. HELICOBACTER ORGANISMS ARE NOT IDENTIFIED . AB/PAS STAIN REVIEWED. B) COLON AT 10 CM, BIOPSIES - FRAGMENTS OF HYPERPLASTIC POLYPS. C) COLON AT 5 CM, BIOPSIES - FRAGMENTS OF HYPERPLASTIC POLYPS. D) COLON AT 2 CM, BIOPSIES - FRAGMENTS OF HYPERPLASTIC POLYPS. E) COLON AT 14 CM, BIOPSIES - HYPERPLASTIC POLYP. F) COLON AT 15 CM, BIOPSIES - CAUTERIZED MUCOSA WITH FEATURES SUGGESTING HYPERPLASTIC POLYP. G) COLON AT 16 CM, BIOPSIES - FRAGMENTS OF HYPERPLASTIC POLYP. H) COLON AT 25 CM, BIOPSIES - HYPERPLASTIC POLYP. I) CECUM, BIOPSIES - SEGMENTS OF HYPERPLASTIC POLYPS. J) MID ASCENDING COLON, BIOPSIES - BENIGN COLONIC MUCOSA WITH FEATURES SUGGESTING A HYPERPLASTIC POLYP. K) COLON AT 30 CM, BIOPSIES - FRAGMENTS OF HYPERPLASTIC POLYP AND BENIGN COLONIC MUCOSA. [facility] CONVERTED ORDERING PROVIDER Ordering Provider: REKHA SCOTT [facility] Vital Signs Date Time Vital Sign Value Performing Clinician Ana Laura weiner 09-24-2023 09:00-0400 Heart rate 93 /min [facility] 09-24-2023 09:00-0400 Respiratory rate 18 /min [facility] 09-24-2023 08:56-0400 Inhaled oxygen flow rate 2 L/min [facility] 09-24-2023 08:56-0400 SaO2% (BldA) [Mass fraction] 92 % [facility] 09-24-2023 07:30-0400 Body temperature 98.9 [degF] [facility] 09-24-2023 07:30-0400 Diastolic blood pressure 62 mm[Hg] [facility] 09-24-2023 07:30-0400 Systolic blood pressure 101 mm[Hg] [facility] 09-21-2023 17:36-0400 Body height 144.78 cm [facility] 09-21-2023 17:36-0400 Body weight 44.45 kg [facility] 09-21-2023 14:46-0400 Diastolic blood pressure 76 mm[Hg] [facility] 09-21-2023 14:46-0400 Heart rate 60 /min [facility] 09-21-2023 14:46-0400 Inhaled oxygen flow rate 2 L/min [facility] 09-21-2023 14:46-0400 Respiratory rate 18 /min [facility] 09-21-2023 14:46-0400 SaO2% (BldA) [Mass fraction] 98 % [facility] 09-21-2023 14:46-0400 Systolic blood pressure 137 mm[Hg] [facility] 09-21-2023 11:32-0400 Body height 144.78 cm [facility] 09-21-2023 11:32-0400 Body temperature 97.7 [degF] [facility] 09-21-2023 11:32-0400 Body weight 44.45 kg [facility] 08-17-2023 17:15-0400 Diastolic blood pressure 66 mm[Hg] [facility] 08-17-2023 17:15-0400 Heart rate 65 /min [facility] 08-17-2023 17:15-0400 Respiratory rate 22 /min [facility] 08-17-2023 17:15-0400 SaO2% (BldA) [Mass fraction] 94 % [facility] 08-17-2023 17:15-0400 Systolic blood pressure 136 mm[Hg] [facility] 08-17-2023 13:44-0400 Body height 144.78 cm [facility] 08-17-2023 13:44-0400 Body temperature 97.9 [degF] [facility] 08-17-2023 13:44-0400 Body weight 43.09 kg [facility] Encounters Encounter Date Encounter Type Care Provider Facility Start: 09-22-2023 Non-patient / Non-visit [facility] Work Phone: Start: 09-21-2023 End: 09-24-2023 Evaluation and management of inpatient [facility] Work Phone: Start: 08-29-2023 End: 08-29-2023 ambulatory JOHANNY MCKNIGHT Not Available Start: 08-17-2023 End: 08-17-2023 Emergency department patient visit [facility] Work Phone: Start: 10-19-2006 End: 10-19-2006 Patient encounter procedure Rekha Rivera Cinthya Work Phone: [facility] Start: 10-19-2006 Results Only Rekha Rivera Javier ponce Work Phone: [facility] Procedures Date Procedure Procedure Detail Performing Clinician Start: 08-17-2023 Respiratory Panel (PCR) Start: 08-17-2023 Plain chest X-ray Start: 10-19-2006 CONVERTED SURGICAL PATHOLOGY Rekha Rivera Macielyaya Work Phone: Plan of Treatment Date Care Activity Detail Author Start: 09-24-2023 [facility] Start: 09-22-2023 Administration of pr ophylactic treatment [facility] Start: 09-21-2023 Referral to C2 Tactical Analysis Technician [facility] Start: 09-21-[address] [facility] Patient Education [facility] Work Phone: Patient referral [facility] Work Phone: Payers Date Payer Category Payer Medicare [id number] 2023 Self-pay 2019 Unknown [id number] 1950 Unknown [id number] Medicare Medicare [id number] Unknown [id number] Unknown [id number] Social History Date Type Detail Facility Tobacco smoking stat us NHIS Unknown if ever smoked [facility] Sex Assigned At Not on file [facility] Start: 08-17-2023 End: 09-22-2023 Tobacco smoking status NHIS Smoker (finding) [facility] Start: 1950 Sex Assigned At Female F [facility] Start: 09-21-2023 [facility] Goals Date Patient Goal Desired Activity /State Functional Status Date Assessment Result Facility 09-24-2023 Functional status Patient at Baseline [facility] Work Phone: Mental Status Date Assessment Result Facility 09-24-2023 Cognitive function Cognitive Sta tus Patient at Baseline [facility] Work Phone: Discharge summary 09-24-2023 Note Date & Type Note Facility 09-24-2023 Discharge summary Note Date/Time September 24, 2023 10:39am [facility] [address] [place] [address] Discharge Summary Signed Patient: Quin Perez MR#: [id number] : 1950 Acct:[id number] Age/Sex: 73 / F Adm Date: 4 Loc: Room: [address] [place] [address]: Juan Alberto Salinas MD Copies to: NON STAFF Juan Alberto Salinas MD~ Providers Date of Discharge: 09/24/23 Discharging Provider: Juan Alberto Salinas Primary Care Provider: NON STAFF Consults: 09/21/23 17:54 Consult to Case Management Routine Comment: CM Reason for Consult: C2 Tactical Analysis Technician-General Discharge Diagnosis (1) Major depression: Final Diagnosis Final Discharge Diagnosis: Major depressive disorder Summary Hospital Course Hospital course: Ms. Shaniqua Kelsey is a 73 year old female who presented due to concern for depression and suicidal thoughts with plan of overdosing on pills. Assessment limited today due to patient's sedation and not able to stay awake to answer questions due to receiving benzodiazepine last night. According to the assessment in the ER, patient reported that she was feeling depressed and suicidal and not wanting to live like this. Her son 1 year ago. Her stated that she has no energy and just sits on the couch all day. She has been reporting some depression and suicidal thoughts to overdose on pills. After the day the patient was very sedated she did become more talkative. She did complain of depression and suicidality but did admit that she had stopped taking her medication for a while. Her Cymbalta was restarted and she received good benefit from it. She felt her depression improved during her hospitalization. She no longer reported any suicidal thoughts. She did not exhibit any behavior concerning for suicidality during her hospital course. Shedid not have any conflict with peers or staff. On the day of discharge, she reported that she is feeling better. She denied any depression or suicidality. She was tolerating her medications and stated that she would continue taking them on discharge. I discussed with her about getting home health at the house,but she stated that at this time she was not interested in having of help from her . She stated that she will follow-up with outpatient services and continue her medications. Time spent discussing smoking cessation with patient: 3 to 10 minutes Condition Condition at Discharge: Stable Status at Discharge Cognitive/behavioral status at discharge: Mental Status Exam: Appearance: grossly normal Mental Status: mental status grossly normal Mood: Euthymic mood Affect: Normal affect Speech and Movement: speech normal, movement normal Attitude: cooperative Thought Process: normal Thought Content: Denied hallucinations, no homicidality and no suicidality Insight: Good Judgment: Good Functional status at discharge: uses cane/walker Overall status at discharge: patient is back to baseline Time Spent with Patient Time spent providing/coordinating discharge services (# min): 30 Discharge Plan Discharge Plan Patient Disposition: Home Activity: Ambulate as Tolerated Diet: Regular Additional Instructions: Important Contact Information You can call [facility] at [phone] any time day or night if you have emergent questions or question regarding discharge instructions. If at any time you are feeling an increase inyour psychiatric symptoms, call your physician or behavioral healthcare provider. If any time you have thoughts of harming yourself or others contact one of the following: Call (available 22/09) Crisis Text Line (available 22/09) text 4HOPE to [phone] [facility] (available 8 a.m. Midnight) call [phone] ([phone]) Instructions: Know your Meds Prescriptions: New nicotine (polacrilex) 2 mg Gum 2 mg buccal Q2H PRN (Reason: Nicotine Cravings) Qty: 20 0RF clonazepam 0.5 mg Tablet 0.5 mg PO BID PRN (Reason: anxiety) Qty: 0 0RF Continued fluticasone propion-salmeterol [Wixela Inhub] 250-50 mcg/dose blister with device 1 inh inhalation BID Rx Instructions: 1 inh inhaled; aspirin 81 mg capsule 81 mg PO DAILY temazepam 30 mg PO QHS pregabalin 50 mg capsule 50 mg PO TID quetiapine 200 mg tablet extended release 24 hr 200 mg PO QHS atorvastatin 40 mg tablet 40 mg PO DAILY losartan 25 mg tablet 25 mg PO DAILY pantoprazole 40 mg tablet,delayed release (DR/EC) 40 mg PO BID alendronate 70 mg tablet 70 mg PO QWEEK propranolol 20 mg tablet 20 mg PO BID meclizine 25 mg tablet 25 mg PO TID PRN (Reason: dizziness) ondansetron 4 mg tablet,disintegrating 4 mg PO Q8HR PRN (Reason: nausea and vomiting) Spiriva Respimat 2.5 mcg/actuation mist 2 inh inhalation BID duloxetine [Cymbalta] 60 mg capsule,delayed release(DR/EC) 60 mg PO BID 30 Days Qty: 60 0RF Discontinued clonazepam 1 mg tablet 1 mg PO BID Follow Up: Miguel Lundy DO [Other] (Contact your PCP with medical needs. ) Radhika Brewer APRN [Other] (Please follow up with your psychiatric provider when you return to [place]. ) [facility] ([place] [Outside] - 09/25/23 1:00 pm Exam Physical Exam Vital Signs: Temp Pulse Resp BP Pulse Ox O2 Del Method O2 Flow Rate 98.9 F 93 18 101/62 92 L Nasal Cannula 2 09/24/23 07:30 09/24/23 09:00 09/24/23 09:00 09/24/23 07:30 09/24/23 08:56 09/24/23 08:56 09/24/23 08:56 Documented By: Juan Alberto Salinas MD 09/24/23 1037 Signed By: <Electronically signed by Juan Alberto Salinas MD> 09/24/23 1041 [facility] Work Phone: Progress note 09-23-2023 Note Date & Type Note Facility 09-23-2023 Progress note Note Date/Time September 23, 2023 1:07pm [facility] [address] [place] [address] Psychiatry Progress Note Signed Patient: Quin Perez MR#: [id number] : 1950 Acct:[id number] Age/Sex: 73 / F Adm Date: 4 Loc: Room: [address] [place] [address] Type : ADM IN Attending Dr: Juan Alberto Salinas MD Copies to: ~ Date of Service: 09/23/2023 Subjective Subjective Narrative: Ms. Shaniqua Kelsey reported that she is doing okay. She reported that she wasfeeling depressed. She reported that when she was in the ER and prior to comingin she had some passive suicidal thoughts. She stated that she has been taking Cymbalta for 25 years and Klonopin was added roughly 1 to 2 years ago. She stated that she has been feeling weak at home. She did report that she was not taking her medications for about a week. Mental Status Exam: Appearance: grossly normal Mental Status: mental status grossly normal Mood: dysthymic mood Affect: dysphoric affect Speech and Movement: speech limited Attitude: cooperative Thought Process: Slowed thought process Thought Content: Denies current suicidal thoughts Insight: Fair Judgment: Fair Exam Physical Exam Vital Signs: Temp Pulse Resp BP Pulse Ox O2 Del Method O2 Flow Rate 98.4 F 64 16 99/56 L 94 L Nasal Cannula 2 09/23/23 07:30 09/23/23 09:10 09/23/23 09:10 09/23/23 07:30 09/23/23 07:30 09/23/23 09:00 09/23/23 09:00 Assessment/Plan Assessment/Plan (1) Major depression: Plan Patient does report depression and admits that she was not taking her medications for about a week Decrease Klonopin 0.5 twice a day as needed Continue Cymbalta 60 mg twice a day and Seroquel 200 mg at bedtime We will consider second antidepressant if getting her back on Cymbalta is not enough to help manage her mood Continue to monitor mental status Encourage group participation and medication compliance Risk benefits alternatives explained Documented By: Juan Alberto Salinas MD 09/23/23 1304 Signed By: <Electronically signed by Juan Alberto Salinas MD> 09/23/23 1306 [facility] Work Phone: History and physical note 09-22-2023 Note Date & Type Note Facility 09-22-2023 History and physi corbin note Note Date/Time September 22, 2023 11:53am [facility] [address] [place] [address] Psychiatry H&P Signed Patient: Quin Perez MR#: [id number] : 1950 Acct:[id number] Age/Sex: 73 / F Adm Date: 4 Loc: Room: [address] [place] [address] Type: ADM IN Attending Dr: Juan Alberto Salinas MD Copies to: NON STAFF Juan Alberto Salinas MD~ Date of Service: 09/22/2023 HPI History of Present Illness History of present illness: Ms. Shaniqua Kelsey is a 73 year old female who presented due to concern for depression and suicidal thoughts with plan of overdosing on pills. Assessment limited today due to patient's sedation and not able to stay awake to answer questions due to receiving benzodiazepine last night. According to the assessment in the ER, patient reported that she was feeling depressed and suicidal and not wanting to live like this. Her son 1 year ago. Her stated that she has no energy and just sits on the couch all day. She has been reporting some depression and suicidal thoughts to overdose on pills. Review of symptoms: Unable to assess due to patient mental status Physical exam: Unable to assess due to patient's mental status Mental Status Exam: Appearance: grossly normal Mental Status: mental status grossly normal Mood: dysthymic mood Affect: dysphoric affect Speech and Movement: speech limited Attitude: cooperative Thought Process: Slowed thought process Thought Content: Unable to assess Insight: impaired Judgment: impaired [facility] Depression Surgical History Hx of hysterectomy Hx of cholecystectomy Hx of neck surgery Previous back surgery Heart valve replaced Family History (Updated 09/21/23 @ 17:46 by Ale Deutsch RN) Other No significant family history Social History Smoking Status: Current every day smoker Tobacco Type: cigarettes Substance Use Type: None Social History Comments: lives in [place] for the summer and [place] in the winter. Meds Medications and Allergies Allergies Penicillins Allergy (Verified 09/21/23 14:33) Hives Home Medications aspirin 81 mg capsule 81 mg PO DAILY 08/17/23 [History Confirmed 09/21/23] duloxetine 60 mg capsule,delayed release (Cymbalta) 60 mg PO BID 08/17/23 [History Confirmed 09/21/23] fluticasone 250 mcg-salmeterol 50 mcg/dose blistr powdr for inhalation (Wixela Inhub) 1 inh inhalation BID 08/17/23 [History Confirmed 09/21/23] temazepam 30 mg PO QHS 08/17/23 [History Confirmed 09/21/23] alendronate 70 mg tablet 70 mg PO QWEEK 09/21/23 [History Confirmed 09/21/23] atorvastatin 40 mg tablet 40 mg PO DAILY 09/21/23 [History Confirmed 09/21/23] clonazepam 1 mg tablet 1 mg PO BID 09/21/23 [History Confirmed 09/21/23] losartan 25 mg tablet 25 mg PO DAILY 09/21/23 [History Confirmed 09/21/23] meclizine 25 mg tablet 25 mg PO TID PRN dizziness 09/21/23 [History Confirmed 09/21/23] ondansetron 4 mg disintegrating tablet 4 mg PO Q8HR PRN nausea and vomiting 09/21/23 [History Confirmed 09/21/23] pantoprazole 40 mg tablet,delayed release 40 mg PO BID 09/21/23 [History Confirmed 09/21/23] pregabalin 50 mg capsule 50 mg PO TID 09/21/23 [History Confirmed 09/21/23] propranolol 20 mg tablet 20 mg PO BID 09/21/23 [History Confirmed 09/21/23] quetiapine 200 mg tablet,extended release 24 hr 200 mg PO QHS 09/21/23 [History Confirmed 09/21/23] tiotropium bromide 2.5 mcg/actuation mist for inhalation (Spiriva Respimat) 2 inh inhalation BID 09/21/23 [History Confirmed 09/21/23] Exam Physical Exam Vital Signs: Temp Pulse Resp BP Pulse Ox O2 Del Method O2 Flow Rate 97.3 F L 90 17 131/78 92 L Nasal Cannula 2 09/22/23 07:30 09/22/23 07:30 09/22/23 07:30 09/22/23 07:30 09/22/23 07:30 09/22/23 09:00 09/22/23 09:00 Results - Psychiatry Labs 09/21/23 11:42 09/21/23 11:42 Psychiatry Labs: 09/21/23 09/21/23 11:42 12:04 RBC 4.50 Hgb 13.2 Hct 41.8 MCV 92.8 MCH 29.3 MCHC 31.5 L RDW 15.4 H Plt Count 181 MPV 8.0 Sodium 139 Potassium 4.4 Chloride 96 L Carbon Dioxide 39.0 H Anion Gap 8.4 BUN 16 Creatinine 0.81 Calcium 9.6 Total Bilirubin 0.7 AST 15 ALT 14 Alkaline Phosphatase 94 Total Protein 6.8 Albumin 3.6 Urine Color Dark yellow A Urine Appearance Cloudy A Urine pH 5.5 Ur Specific [place] 1.022 Urine Protein 30 H Urine Glucose (UA) Normal Urine Ketones Trace H Urine Occult Blood Negative Urine Nitrite Negative Ur Leukocyte Esterase 1+ H Urine RBC 0-1 Urine WBC 3-4 Assessment/Plan (1) Major depression: Plan Assessment limited due to patient's sedation Decrease Klonopin 0.5 twice a day as needed Continue Cymbalta 60 mg twice a day and Seroquel 200 mg at bedtime We will consider second antidepressant when patient is more awake Continue to monitor mental status Encourage group participation and medication compliance Risk benefits alternatives explained Documented By: Juan Alberto Salinas MD 09/22/23 1148 Signed By: <Electronically signed by Juan Alberto Salinas MD> 09/22/23 1153 [facility] Work Phone: Evaluation note Note Date & Type Note Facility Evaluation note No assessment information availa ble [facility] Work Phone: Evaluation note Note Date & Type Note Facility Evaluation note Diagnosis Onset Date Chronic abdominal pain acute Major depression acute [facility] Work Phone: Summary Purpose Family History No Family History Records Found Relationship Condition Age at Onset Recorded Date/T iqra Not Specified No pertinent family history Unknown Advance Directives No Advanced Directives Records Found Advance Directive Response Recorded Date/ Time Advance Directives No August 16 2:35pm Chief Complaint and Reason for Visit Chief Complaint trouble breathing Chief Complaint trouble breathing stomach pain, nausea, MHP Reason for Visit Chronic abdominal pa in Major depression Chief Complaint trouble breathing stomach pain, nausea, MHP stomach pain, nausea, MHP Reason for Visit Chronic abdominal pa in Major depression Additional Source Comments (unrecognized sect ion and content) No Status Records Found INFORMATION SOURCE (unrecogn ized section and content) DATE CREATED AUTHOR 05/05/2019 [facility] ([place]) DATE CREATED AUTHOR AUTHOR'S ORGANIZ ATION 08/30/2023 [facility] EPIC DATE CREATED AUTHOR AUTHOR'S ORGANIZ ATION 10/12/2023 [facility] Source Comments (unrecognize d section and content) In the event this informatio n is protected by the Federal Confidentiality of Alcohol and Drug Abuse Patient Records regulations: The Federal rules restrict any use of the information to criminally investigate or prosecute any alcohol or drug abuse patient.[facility] Care Teams (unrecognized sec tion and content) Team Status: Active Member Role Status Dates NON STAFF Primary Care Provider Active Team Status: Inactive Member Role Status Dates NON STAFF Primary Care Provider Active Start: August 17, 2023 End: August 17, 2023 Don Rapp PA-C Emergency Provider Active Start: August 17, 2023 End: August 17, 2023 Team Status: Active Member Role Status Dates NON STAFF Primary Care Provider Active Start: September 21, 2023 Sushma Nascimento DO Emergency Provider Active Sta rt: September 21, 2023 Juan Alberto Salinas MD Admit Provider, Attending Provider Active Start: September 21, 2023 Team Status: Inactive Member Role Status Dates NON STAFF Primary Care Provider Active Start: September 21, 2023 End: September 24, 2023 Sushma Nascimento DO Emergency Provider Active Sta rt: September 21, 2023 End: September 24, 2023 Juan Alberto Salinas MD Admit Provider, Atte nding Provider Active Start: September 21, 2023 End: September 24, 2023 Team Status: Active Member Role Status Dates NON STAFF Primary Care Provider Active Start: September 22, 2023 Sushma Nascimento DO Emergency Provider Active Sta rt: September 22, 2023 Juan Alberto Salinas MD Admit Provider, Atte nding Provider, Other Provider Active Start: September 22, 2023 Goals (unrecognized section and content) Goals may be documented in a n alternate sectionGoals may be documented in an alternate section FOR RECORDS PERTAINING TO PATIENTS WHO ARE OR HAVE BEEN ENROLLED IN A CHEMICAL DEPENDENCY/SUBSTANCEABUSE PROGRAM, SOME INFORMATION MAY BE OMITTED. This clinical summary was aggregated from multiple sources. Caution should be exercised in using it in the provision of clinical care. This summary normalizes information from multiple sources, and as a consequence, information in this document may materially change the coding, format and clinical context of patient data. In addition, data may be omitted in some cases. CLINICAL DECISIONS SHOULD BE BASED ON THE PRIMARY CLINICAL RECORDS. [employer] provides no warranty or guarantee of the accuracy or completeness of information in this document.
--- NOTE | 2023-10-20 19:36 | XR_ITS ---
The [address] [address] Patient Name: ANNETTE LÓPEZ MRN: [id number] date: 1950 Sex: F Assigned Patient Location: ER Current Patient Location: ER Accession/Order Number: [id number] Exam Date: 10/20/2023 19:45 Report Date: 10/20/2023 21:50 At the request of: THOMAS MARTINEZ Procedure: XR chest 2V CHEST X-RAY. INDICATION: Fall COMPARISON: There are no previous studies available for comparison. TECHNIQUE: Frontal and lateral chest radiographs. FINDINGS: TUBES AND LINES: None. LUNGS: Hyperexpanded lungs. No focal opacity. PLEURA: No effusions or pneumothorax. HEART AND MEDIASTINUM: Within normal limits. OSSEOUS STRUCTURES: No acute abnormality. XR/XR chest 2V IMPRESSION: No acute findings. Electronically authenticated by: MC SOOD Date: 10/20/2023 21:50
--- NOTE | 2023-10-20 19:37 | ED_ITS ---
Documented by User: Dahiana Marilyn 10/20/23 21:38 HPI HPI - Fall General Chief Complaint: Fall Stated Complaint: FALL Time Seen by Provider: 10/20/23 19:33 Source: patient Mode of arrival: walk-in Limitations: no limitations History of Present Illness HPI Narrative: 73 year old female presents to the ED for pain to her left anterior upper chest s/p fall 10 days ago. Reports falling 3 weeks ago as well. States she was sent from urgent care to rule out a rib fracture. Denies fever, chills, SOB, dizziness, weakness. Denies LOC. The pain is worse with movement, palpation, and inspiration. She is accompanied by family for a ride home. She took Tylenol 4 hours GRILL PREP COOK. She also has tramadol at home which she states has not been helping. Related Data Home Medications ?Medication ?Instructions ?Recorded ?Confirmed alendronate 70 mg tablet mg PO 10/20/23 atorvastatin 40 mg tablet mg 10/20/23 buspirone 10 mg tablet mg 10/20/23 clonazepam 1 mg tablet mg 10/20/23 duloxetine 60 mg capsule,delayed mg PO 10/20/23 release losartan 25 mg tablet mg 10/20/23 pantoprazole 40 mg tablet,delayed mg PO 10/20/23 release pregabalin 50 mg capsule mg 10/20/23 propranolol 20 mg tablet mg 10/20/23 quetiapine 100 mg tablet mg 10/20/23 quetiapine 200 mg tablet,extended mg PO 10/20/23 release 24 hr Allergies Allergy/AdvReac Type Severity Reaction Status Date / Time Penicillins Allergy Intermediate Hives Verified 10/20/23 19:31 Opioid HPI Opioid Management Most Recent Pain and Opioid Data: Last Pain Scale 5 10/20/23 19:34 Review of Systems ROS Constitutional Denies: fever or chills Ears, nose, mouth, and throat Denies: throat pain or neck pain Respiratory Denies: shortness of breath Gastrointestinal Denies: abdominal pain Musculoskeletal Denies: back pain or neck pain Exam Narrative Exam Narrative: Bruising to various areas of BUE, chest wall. Constitutional Vital Signs, click to edit/add: Last Vital Signs Temp 97.6 F 10/20/23 19:23 Pulse 68 10/20/23 19:23 Resp 18 10/20/23 19:23 BP 123/70 10/20/23 19:23 Pulse Ox 98 10/20/23 19:23 O2 Del Method Room Air 10/20/23 19:23 Common normals: no apparent distress and oriented x3 General appearance: cooperative Eye Common normals: conjunctivae normal and no scleral icterus Chest Chest: symmetrical chest wall rise Other: Bruising to left upper chest. Area is tender. Denies tenderness to left lateral and inferior rib areas. Respiratory Common normals: normal respiratory effort and clear to auscultation bilaterally Effort & inspection: able to speak in complete sentences Cardio Common normals: regular rate and regular rhythm GI Common normals: Normal to inspection, nondistended, normoactive bowel sounds present, soft to palpation and non-tender Neuro Common normals: oriented x3, CN's II-XII intact bilaterally and moves all extremities Sensorium/orientation: awake and alert Speech: speech normal Course Vital Signs Vital signs: Vital Signs Temperature 97.6 F 10/20/23 19:23 Pulse Rate 68 10/20/23 19:23 Respiratory Rate 18 10/20/23 19:23 Blood Pressure 123/70 10/20/23 19:23 Pulse Oximetry 98 10/20/23 19:23 Oxygen Delivery Method Room Air 10/20/23 19:23 Temperature 97.6 F 10/20/23 19:23 Pulse Rate 68 10/20/23 19:23 Respiratory Rate 18 10/20/23 19:23 Blood Pressure 123/70 10/20/23 19:23 Pulse Oximetry 98 10/20/23 19:23 Oxygen Delivery Method Room Air 10/20/23 19:23 MDM - Fall MDM Narrative Medical decision making narrative: X-ray results were pending. Care was resumed to Dr. Collins. See his dictation for further evaluation and treatment. She was medicated for her discomfort here. Family was present for a ride home. Medical Records Attestation: I reviewed the patient's medical records. Imaging Data Chest x-ray: Radiologist's impression: ITS Impressions Chest X-Ray 10/20/23 19:36 IMPRESSION: No acute findings. Electronically authenticated by: MC SOOD Date: 10/20/2023 21:50 Discharge Plan Discharge Stand Alone Forms: Work/School Release, Portal Instructions Chief Complaint: Fall Clinical Impression: Chest wall contusion Patient Disposition: Home, Self-Care Time of Disposition Decision: 21:58 Condition: Good Mode of Transportation: Private Vehicle Prescriptions / Home Meds: No Action atorvastatin 40 mg tablet alendronate 70 mg tablet PO clonazepam 1 mg tablet quetiapine 100 mg tablet pantoprazole 40 mg tablet,delayed release (DR/EC) PO buspirone 10 mg tablet losartan 25 mg tablet propranolol 20 mg tablet duloxetine 60 mg capsule,delayed release(DR/EC) PO pregabalin 50 mg capsule quetiapine 200 mg tablet extended release 24 hr PO Print Language: Mexican Instructions: Contusion in Adults (ED) Referrals: Physician,Non-Staff, [Primary Care Provider] - 1 week Documented by User: Adan Collins MD 10/20/23 21:59 HPI HPI - Fall General Chief Complaint: Fall Stated Complaint: FALL Time Seen by Provider: 10/20/23 19:33 Related Data Home Medications ?Medication ?Instructions ?Recorded ?Confirmed alendronate 70 mg tablet mg PO 10/20/23 atorvastatin 40 mg tablet mg 10/20/23 buspirone 10 mg tablet mg 10/20/23 clonazepam 1 mg tablet mg 10/20/23 duloxetine 60 mg capsule,delayed mg PO 10/20/23 release losartan 25 mg tablet mg 10/20/23 pantoprazole 40 mg tablet,delayed mg PO 10/20/23 release pregabalin 50 mg capsule mg 10/20/23 propranolol 20 mg tablet mg 10/20/23 quetiapine 100 mg tablet mg 10/20/23 quetiapine 200 mg tablet,extended mg PO 10/20/23 release 24 hr Allergies Allergy/AdvReac Type Severity Reaction Status Date / Time Penicillins Allergy Intermediate Hives Verified 10/20/23 19:31 Opioid HPI Opioid Management Most Recent Pain and Opioid Data: Last Pain Scale 5 10/20/23 19:34 Exam Constitutional Vital Signs, click to edit/add: Last Vital Signs Temp 97.6 F 10/20/23 19:23 Pulse 68 10/20/23 19:23 Resp 18 10/20/23 19:23 BP 123/70 10/20/23 19:23 Pulse Ox 98 10/20/23 19:23 O2 Del Method Room Air 10/20/23 19:23 Course Vital Signs Vital signs: Vital Signs Temperature 97.6 F 10/20/23 19:23 Pulse Rate 68 10/20/23 19:23 Respiratory Rate 18 10/20/23 19:23 Blood Pressure 123/70 10/20/23 19:23 Pulse Oximetry 98 10/20/23 19:23 Oxygen Delivery Method Room Air 10/20/23 19:23 Temperature 97.6 F 10/20/23 19:23 Pulse Rate 68 10/20/23 19:23 Respiratory Rate 18 10/20/23 19:23 Blood Pressure 123/70 10/20/23 19:23 Pulse Oximetry 98 10/20/23 19:23 Oxygen Delivery Method Room Air 10/20/23 19:23 MDM - Fall MDM Narrative Medical decision making narrative: X-ray results were pending. Care was resumed to Dr. Collins. See his dictation for further evaluation and treatment. She was medicated for her discomfort here. Family was present for a ride home. JK 10:00pm chest x-ray read by radiologist as negative. Findings are discussed with the patient and she is able to be discharged home. Differential Diagnosis Differential diagnosis: Likely other (Contusion, rib fracture, pneumothorax) Imaging Data Chest x-ray: Radiologist's impression: ITS Impressions Chest X-Ray 10/20/23 19:36 IMPRESSION: No acute findings. Electronically authenticated by: MC SOOD Date: 10/20/2023 21:50 Discharge Plan Discharge Stand Alone Forms: Work/School Release, Portal Instructions Chief Complaint: Fall Clinical Impression: Chest wall contusion Patient Disposition: Home, Self-Care Time of Disposition Decision: 21:58 Condition: Good Mode of Transportation: Private Vehicle Prescriptions / Home Meds: No Action atorvastatin 40 mg tablet alendronate 70 mg tablet PO clonazepam 1 mg tablet quetiapine 100 mg tablet pantoprazole 40 mg tablet,delayed release (DR/EC) PO buspirone 10 mg tablet losartan 25 mg tablet propranolol 20 mg tablet duloxetine 60 mg capsule,delayed release(DR/EC) PO pregabalin 50 mg capsule quetiapine 200 mg tablet extended release 24 hr PO Print Language: Mexican Instructions: Contusion in Adults (ED) Referrals: Physician,Non-Staff, MD [Primary Care Provider] - 1 week
[2023-10-20] MEDS: OXYCODONE HCL/ACETAMINOPHEN 5MG/325MG 1 TAB PO (19:42)
--- NOTE | 2023-10-20 19:59 | PC.NURSE ---
Patient resting in bed with at bedside. She states that she fell 10 days ago as she was reaching for a door handle of her truck. She fell onto her left shoulder and has been having pain since then. There are multiple healing skin tears on the left shoulder and arm, multiple on the left leg and one on the right shoulder. None of them are open or bleeding at this time. Her only complaint is pain in the left shoulder that radiates into her back.
[2023-10-20] MEDS: MORPHINE SULFATE 4 MG/ML VIAL IM (21:50)
== END 2023-10-20 22:14 | disposition home or self-care (01) ==
PROVIDERS: Emergency Provider Emergency Medicine
DX: S20.212A Contusion of left front wall of thorax, initial encounter (principal); W19.XXXA Unspecified fall, initial encounter
CPT/HCPCS: 71046; 96372; 99284; J2270

== ENCOUNTER 2023-10-24 11:47 | Emergency (ER) | payer MEDICARE, BC, SELFPAY ==
[2023-10-24] VITALS (12 sets, daily range): BP systolic 141–166; BP diastolic 62–74; PULSE 51–62; TEMP 36.7; O2SAT 19–97; BMI 18.1
--- NOTE | 2023-10-24 12:27 | ED.CHESTPAI1 ---
HPI - Chest Pain General Chief Complaint: Chest Pain Stated Complaint: CHEST PAIN/ FALL Time Seen by Provider: 10/24/23 12:08 Source: patient Mode of arrival: walk-in Limitations: no limitations History of Present Illness HPI narrative: The patient is coming to the ER after she had a fall almost 2 weeks ago hitting the front of her chest, patient mentioned that she has been having chest pain whenever she take a deep breath mostly. And has been going on at least for 2 weeks. Patient had a previous injury that caused her to have wound to her left leg and that was 4 weeks ago The patient denies any other injuries No cough no difficulty breathing Related Data Home Medications ?Medication ?Instructions ?Recorded ?Confirmed alendronate 70 mg tablet mg PO 10/20/23 atorvastatin 40 mg tablet mg 10/20/23 buspirone 10 mg tablet mg 10/20/23 clonazepam 1 mg tablet mg 10/20/23 duloxetine 60 mg capsule,delayed mg PO 10/20/23 release losartan 25 mg tablet mg 10/20/23 pantoprazole 40 mg tablet,delayed mg PO 10/20/23 release pregabalin 50 mg capsule mg 10/20/23 propranolol 20 mg tablet mg 10/20/23 quetiapine 100 mg tablet mg 10/20/23 quetiapine 200 mg tablet,extended mg PO 10/20/23 release 24 hr Previous Rx's ?Medication ?Instructions ?Recorded oxycodone-acetaminophen 5 mg-325 1 tab PO Q8H PRN pain 3 days #9 10/24/23 mg tablet (Percocet) tabs prednisone 20 mg tablet 40 mg (2 x 20 mg) PO DAILY 5 days 10/24/23 #10 tabs Allergies Allergy/AdvReac Type Severity Reaction Status Date / Time Penicillins Allergy Intermediate Hives Verified 10/20/23 19:31 Review of Systems ROS Status of ROS 10 or more systems reviewed and unremarkable except as noted in history and below Exam Narrative Exam Narrative: Nurses notes and vital signs reviewed and patient is not hypoxic. General: Well-appearing and in no apparent distress. Skin: Warm, dry, no pallor noted. No rash. Head: Normocephalic, atraumatic. Neck: Supple, non-tender. Eye: Pupils are equal, round and EOMI. No scleral icterus. Ears, Nose, Mouth, and Throat: TM are clear, no nasal mucosal hypertrophy. Oral mucosa is moist, no posterior oropharynx erythema, uvula is mid-line Cardiovascular: Regular Rate and Rhythm without murmur, gallop or rub. Respiratory: No accessory muscle use or respiratory distress. Lungs are clear to auscultation, no wheezing, rales or rhonchi Chest Wall: No tenderness upon palpation of the entry of the chest wall although the patient have very constricted take a look and the bone is prominent in her chest wall ribs and ecchymosis are healing in that area Back: No midline thoracic or lumbar vertebral tenderness. No CVA tenderness Musculoskeletal: normal ROM, no calf or popliteal tenderness, clean dressing to the left leg the patient did not want me to take the dressing off GI: Abdomen is soft, non-distended. Normal bowel sounds. No masses appreciated. No tenderness to palpation. No rebound, guarding, or rigidity noted. Neurological: A&O x4. No cranial nerve dysfunction observed. No truncal ataxia. Moves all extremities. Sensation intact. Psychiatric: Cooperative and interactive. Normal mood and affect. Constitutional Vital Signs, click to edit/add: Last Vital Signs Temp 98.1 F 10/24/23 11:50 Pulse 56 L 10/24/23 14:58 Resp 20 10/24/23 14:58 BP 166/74 H 10/24/23 14:58 Pulse Ox 97 10/24/23 14:58 O2 Del Method Room Air 10/24/23 14:58 Course Vital Signs Vital signs: Vital Signs Temperature 98.1 F 10/24/23 11:50 Pulse Rate 57 L 10/24/23 11:50 Respiratory Rate 18 10/24/23 11:50 Blood Pressure 141/62 10/24/23 11:50 Pulse Oximetry 95 10/24/23 11:50 Oxygen Delivery Method Room Air 10/24/23 11:50 Temperature 98.1 F 10/24/23 11:50 Pulse Rate 56 L 10/24/23 14:58 Respiratory Rate 20 10/24/23 14:58 Blood Pressure 166/74 H 10/24/23 14:58 Pulse Oximetry 97 10/24/23 14:58 Oxygen Delivery Method Room Air 10/24/23 14:58 MDM - Chest Pain MDM Narrative Medical decision making narrative: Initially the patient refused to have a IV established I did explain to the patient that she needs workup for other things but she mentioned that she just need to make sure that she did not have any rib broken The patient was agreeable after walk to get some IV to get the pain medication and blood workup and then she did a CAT scan without contrast CBC and chemistry showed no acute significant pathology as well as troponin and the CAT scan of the chest without contrast shows area mostly healing rib fracture on the right side The patient was treated with prednisone as well as Percocet to go home with The patient is to follow up with primary care physician in next 2-3 days or to return to the emergency department should any of the signs or symptoms worsen or new symptoms develop. The patient agrees with the following Diagnosis and Treatment plan and the patient will be discharged home. Lab Data Labs: Lab Results 10/24/23 Range/Units 12:55 WBC 5.2 (4.0-11.0) 10^3/uL RBC 2.78 L (4.20-5.40) 10^6/uL Hgb 8.4 L (12.0-16.0) g/dL Hct 27.7 L (36.0-48.0) % MCV 99.6 H (81.0-99.0) fL MCH 30.2 (26.7-34.0) pg MCHC 30.3 (29.9-35.2) g/dL RDW 18.4 H (11.0-15.0) % Plt Count 149 L (150-450) 10^3/uL MPV 10.7 (9.5-13.5) fL Neut % (Auto) 61.9 (43.0-75.0) % Lymph % (Auto) 27.8 (20.5-60.0) % [place] % (Auto) 8.9 (1.7-12.0) % Eos % (Auto) 0.6 L (0.9-7.0) % Baso % (Auto) 0.6 (0.2-2.0) % Neut # (Auto) 3.2 (1.4-6.5) 10^3/uL Lymph # (Auto) 1.4 (1.2-3.8) 10^3/uL [place] # (Auto) 0.5 (0.3-0.8) 10^3/uL Eos # (Auto) 0.0 (0.0-0.7) 10^3/uL Baso # (Auto) 0.0 (0.0-0.1) 10^3/uL Abs Immat Gran (auto) 0.01 (0.00-0.03) 10^3/uL Imm/Tot Granulo (auto) 0.2 (0.0-0.5) % Sodium 138 (136-145) mmol/L Potassium 4.6 (3.5-5.1) mmol/L Chloride 102 (98-107) mmol/L Carbon Dioxide 33.8 H (21.0-32.0) mmol/L Anion Gap 6.8 BUN 17.0 (7.0-18.0) mg/dL Creatinine 0.79 (0.55-1.02) mg/dL Est GFR ( Amer) >60 (>=60) Est GFR (Non-Af Amer) >60 (>=60) BUN/Creatinine Ratio 21.5 Glucose 80 (74-106) mg/dL Calcium 8.2 L (8.5-10.1) mg/dL Total Bilirubin 0.7 (0.2-1.0) mg/dL AST 22 (15-37) U/L ALT 21 (14-59) U/L Alkaline Phosphatase 104 (46-116) U/L Troponin I High Sens 5.5 (4.0-51.3) pg/mL Total Protein 5.7 L (6.4-8.2) g/dL Albumin 2.4 L (3.4-5.0) g/dL Globulin 3.3 g/dL Albumin/Globulin Ratio 0.7 Discharge Plan Discharge Stand Alone Forms: Work/School Release, Portal Instructions Chief Complaint: Chest Pain Clinical Impression: Chest wall contusion, Closed rib fracture Patient Disposition: Home, Self-Care Time of Disposition Decision: 14:47 Condition: Good Prescriptions / Home Meds: New prednisone 20 mg tablet 40 mg PO DAILY 5 Days Qty: 10 0RF oxycodone-acetaminophen [Percocet] 5-325 mg tablet 1 tab PO Q8H PRN (Reason: pain) 3 Days Qty: 9 0RF No Action atorvastatin 40 mg tablet alendronate 70 mg tablet PO clonazepam 1 mg tablet quetiapine 100 mg tablet pantoprazole 40 mg tablet,delayed release (DR/EC) PO buspirone 10 mg tablet losartan 25 mg tablet propranolol 20 mg tablet duloxetine 60 mg capsule,delayed release(DR/EC) PO pregabalin 50 mg capsule quetiapine 200 mg tablet extended release 24 hr PO Print Language: Sami Instructions: Rib Fracture (ED), Contusion in Adults (ED) Referrals: Physician,Non-Staff, MD [Primary Care Provider] - 1 week Discharge Date/Time: 10/24/23 15:00
--- NOTE | 2023-10-24 12:33 | ECG_ITS ---
The [facility] Test Date: 2023-10-24 Pat Name: ANNETTE LÓPEZ Department: Room: - Gender: Female Bill Hiker: : 1950 Requested By: [id number] Order Number: [id number] Reading MD: EUSEBIO MORALES Measurements Intervals [place] Rate: 51 P: 78 [place]: 130 QRS: 37 QRSD: 78 T: 70 QT: 426 QTc: 404 Interpretive Statements 1100 Sinus rhythm 9110 normal ECG No previous ECG available for comparison Electronically Signed On 10-25-2023 10:44:28 EDT by EUSEBIO MORALES
--- NOTE | 2023-10-24 12:35 | CT_ITS ---
The [address] [address] Patient Name: ANNETTE LÓPEZ MRN: [id number] date: 1950 Sex: F Assigned Patient Location: ER Current Patient Location: ER Accession/Order Number: [id number] Exam Date: 10/24/2023 13:03 Report Date: 10/24/2023 14:03 At the request of: DEBORA FALL Procedure: CT chest wo con EXAMINATION: CT chest wo con, 10/24/2023 12:03 PM CDT HISTORY: trauma fall chest pain. Injury several weeks ago. COMPARISON: Chest x-ray 10/20/2023. TECHNIQUE: CT scan of the chest was performed IV contrast. CT dose reduction technique was used, including Automated Exposure Control. FINDINGS: Lungs/pleura: Linear density at the lung bases anteriorly felt to be areas of minimal scarring. No consolidation, edema or lung contusion. No pleural effusion or pneumothorax. Mediastinum: No mass or adenopathy or hematoma. Cardiac/vascular:: Normal heart size. Minimal pericardial effusion or thickening anteriorly. Prosthetic aortic valve. Minimal coronary artery calcification. No lower neck mass or adenopathy. No axillary adenopathy or hematoma. Callus from old healed anterior right rib fractures 3-6. No acute or recent appearing fracture.. No acute abnormality upper abdomen. 1.8 cm low-attenuation nodule left adrenal consistent with benign adenoma. Somewhat bulbous appearance of the spleen medially incompletely visualized. No fluid collection or hematoma. Vascular clips epigastric area consistent with previous gastric surgery. Hardware lower cervical spine partially imaged. CT/CT chest wo con IMPRESSION: 1. No acute abnormality or injury chest or upper abdomen. No lung contusion, pleural effusion or pneumothorax. 2. Callus from old healed right rib fractures without acute or recent appearing fracture. Electronically authenticated by: JUNE COOPER Date: 10/24/2023 14:03
--- OUTSIDE RECORDS SUMMARY | 2023-10-24 12:38 | XMS_ITS | CCD ---
Author Organization [facility] Care Team Providers Care Calciminer Name Role Phone Loulou Sanchez Primary Care Provider [phone] NON STAFF Primary Care Provider UnavailKRYSTAL Hightower Emergency Provider [phone] JOHANNY MCKNIGHT Attending Unavailable DO Sushma Nascimento Emergency Provider [phone] MD Juan Alberto Salinas Admit Provider MD Juan Alberto Salinas Attending Provider NON STAFF Primary Care Unavailable Juan Alberto Salinas Admitting Unavailable Juan Alberto Salinas Attending Unavailable Don Rapp Admitting Unavailable Don Rapp Attending Unavailable NON STAFF Primary Care Unavailable NON STAFF Primary Care Unavailable Fernando Martinez Admitting Unavailab le Fernando Martinez Attending Unavailab le Allergies Allergy Classification Reported Allergen(s) Allergy Type Date of Onset Reaction(s) Facility (1 source) Penicillins Drug allergy (disorder) 09-21-2023 [facility] Repository Medications Current Medications Medication Drug [...] Active 60 MG PO Twice daily 60 September 24, 2023 10:40am Fluticasone Propion-Salmeterol (3 [...] 2.5 ug by inhalation twice daily Tiotropium Blount (Spiriva Respimat) 2.5 mcg/actuation mist Active 2 [...] 09-22-2023 Cholesterol [Mass/Vol] 103 mg/dL Low 140-200 [facility] Comment on above: Chol less than 200 m g/dl low riskChol 201-239 mg/dl borderline riskChol 240 mg/dl and greater high risk Result Comment: Chol less than 200 mg/dl low risk Chol 201-239 mg/dl borderline risk Chol 240 mg/dl and greater high risk Performed By: #### L IPID, [id number], TSH3 wRFLX ####[facility] [id number] Cholesterol in LDL Calc [Mas s/Vol]Ordered By: Juan Alberto Salinas on 09-22-2023 Cholesterol in LDL [Mass/Vol] 36 mg/dL 0-100 [facility] Comment on above: LDL ATP III CLASSIFI CATIONLDL less than 100 mg/dL OptimalLDL 100-129 mg/dL Near or above optimalLDL 130-159 mg/dL Borderline highLDL 160-189 mg/dL HighLDL greater than 189 mg/dL Very high Cholesterol in VLDL Calc [Ma ss/Vol]Ordered By: Juan Alberto Salinas on 09-22-2023 Cholesterol in VLDL [Mass/Vol] 11 mg/dL [facility] ECG 12 lead ECGon 09-22-2023 ECG 12 lead ECG [facility] [place] [address] [place] [address] Electrocardiograph Report Signed Patient: uQin Perez MR#: [id number] : 1950 Acct:[id number] Age/Sex: 73 / F ADM Date: 09/21/23 Loc: Room: [address] [place] [address] Type: ADM IN Attending Dr: Juan Alberto [...] for LVH, may be normal variant ( Kingsley product ) Borderline ECG When compared with ECG of 17-Aug-2023 13:47, Criteria for Anterolateral infarct are no longer present Confirmed by KOJO JAMESON MD ([id number]) on 09/22/2023 3:47:46 PM Referred By: Electronically Signed By: KOJO JAMESON MD Transcribed By: MUS Signed By Kojo Jameson MD 0 09/22/23 1547 Normal [facility] Lipid Panelon 09-22-2023 LDL Cholesterol,Calculated 36 mg/dL Normal 0-100 [facility] Comment on above: Result Comment: LDL ATP III CLASSIFICATION LDL less than 100 mg/dL Optimal LDL 100-129 mg/dL Near or above optimal LDL 130-159 mg/dL Borderline high LDL 160-189 mg/dL High LDL greater than 189 mg/dL Very high Performed By: #### L IPID, [id number], TSH3 [id number] ####[place] [id number] [address] Triglyceride w/Reflex 58 mg/dL Normal 0-149 [facility] Comment on above: Result Comment: TRIG ATP III CLASSIFICATION TRIG less than 150 mg/dL Normal TRIG 150-199 mg/dL Borderline high TRIG 200-500 mg/dL High TRIG greater than 500 mg/dL Very high Standard traceable to the Center for Disease Conrtrol and Prevention (CDC) test method. Performed By: #### L IPID, [id number], TSH3 [id number] ####[facility] VLDL CHOLESTEROL 11 mg/dL Normal [facility] Comment on above: Performed By: #### L IPID, [id number], TSH3 wRFLX ####[place] [address] [address] Serum or plasma high density lipoprotein (HDL) cholesterol measurementOrdered By: Juan Alberto Salinas on 09-22-2023 Cholesterol in HDL [Mass/Vol] 55 mg/dL Normal [facility] Comment on above: HDL CHOL ATP-III CLA SSIFICATION Cardiovascular RiskHDL > or equal to 60 mg/dL LOWHDL < 40 mg/dL HIGH Result Comment: HDL CHOL ATP-III CLASSIFICATION Cardiovascular Risk HDL > or equal to 60 mg/dL LOW HDL < 40 mg/dL HIGH Performed By: #### L IPID, [id number], TSH3 [id number] ####[address] Serum or plasma total choles terol/high density lipoprotein (HDL) cholesterol mass ratOrdered By: Juan Alberto Salinas on 09-22-2023 Cholesterol.total/Chol esterol in HDL [Mass ratio] 1.9 {ratio} Normal <5.0 [facility] Comment on above: Performed By: #### L IPID, [id number], TSH3 [id number] ####[address] Thyroid Stim Hormone w/Rflxo n 09-22-2023 Thyroid Stim Hormone w/Rflx 0.80 u[iU]/mL Normal 0.45-5.33 [facility] Comment on above: Performed By: #### L IPID, [id number], TSH3 wRFLX ####[address] Thyrotropin [Units/volume] i n Serum or PlasmaOrdered By: Juan Alberto Salinas on 09-22-2023 TSH Qn 0.80 m[IU]/L 0.45-5.33 [facility] Triglyceride [Mass/volume] i n Serum or PlasmaOrdered By: Juan Alberto Salinas on 07-23-2024 Triglyceride [Mass/Vol] 58 mg/dL 0-149 [facility] Comment on above: TRIG ATP III CLASSIF ICATIONTRIG less than 150 mg/dL NormalTRIG 150-199 mg/dL Borderline highTRIG 200-500 mg/dL High TRIG greater than 500 mg/dL Very highStandard traceable to the Center for Disease Conrtrol and Prevention (CDC) test method. Vitamin D 25 Hydroxy Totalon 09-22-2023 Vitamin D 25 Hydroxy Total 19.4 ng/mL Low 30-100 [facility] Comment on above: Result Comment: ARELI MIN D STATUS 25(OH)VITAMIN D RANGE (ng/mL) Deficient <20 Insufficient 20 to <30 Sufficient 30 to 100 Reference: Jerry Ya, Vita ORTEZ, et al. Evaluation,treatment, and prevention of vitamin D deficiency; an Endocrine Society clinical practice guideline. JCEM. 2010; 96(7):191-. PERFORMED BY: [facility] [address] [place] [address] PATHOLOGIST ADULT SCHOOL TE[employer]ER SRINATH MENDIOLA M.D. Performed By: #### L IPID, [id number], TSH3 wRFLX ####[facility] [address] [place] [address] [facility] Vitamin D+Metabolites [Mass/ volume] in Serum or PlasmaOrdered By: Juan Alberto Salinas on 09-22-2023 Vitamin D+Metabolites [Mass/Vol] 19.4 ng/mL Low 30-100 [facility] Comment on above: VITAMIN D STATUS 25( [place])VITAMIN D RANGE (ng/mL) Deficient <20 Insufficient 20 to <30Sufficient 30 to 100Reference: Jerry Ya, Vita ORTEZ, et al. Evaluation,treatment, and prevention of vitamin D deficiency; an Endocrine Society clinical practice guideline. JCEM. 2010; 96(7):191-. Alanine aminotransferase [En zymatic activity/volume] in Serum or PlasmaOrdered By: Sushma Nascimento on 09-21-2023 ALT [Catalytic activity/Vol] 14 U/L Normal 7-52 [facility] Comment on above: Performed By: #### R EDIL PANEL UPP., BIOFIRECOVDET #### [facility] [address] [place] [address] Albumin [Mass/volume] in Ser um or Plasma by Bromocresol green (BCG) dye binding methoOrdered By: Sushma Nascimento on 09-21-2023 Albumin BCG dye [Mass/Vol] 3.6 g/dL 3.5-5.7 [facility] Alkaline phosphatase [Enzyma tic activity/volume] in Serum or PlasmaOrdered By: Sushma Nascimento on 09-21-2023 ALP [Catalytic activity/Vol] 94 U/L Normal 34-104 [facility] Comment on above: Performed By: #### R EDIL PANEL UPP., BIOFIRECOVDET #### [address] Amphetamine Screen Ql (U)Ord ered By: Sushma Nascimento on 09-21-2023 Amphetamines Ql (U) Negative Negative [facility] Aspartate aminotransferase [ Enzymatic activity/volume] in Serum or PlasmaOrdered By: Sushma Nascimento on 09-21-2023 AST [Catalytic activity/Vol] 15 U/L Normal 13-39 [facility] Comment on above: Performed By: #### R EDIL PANEL UPP., BIOFIRECOVDET #### [address] Automated basophil %Ordered By: Sushma Nascimento on 09-21-2023 Basophils/100 WBC (Bld) 0.6 % Normal . [facility] Comment on above: Performed By: #### R EDIL PANEL UPP., BIOFIRECOVDET #### [address] Automated basophil countOrde red By: Sushma Nascimento on 09-21-2023 Basophils (Bld) [#/Vol] 0.1 10*3/uL Normal 0.0-0.2 [facility] Comment on above: Result Comment: PERF ORMED BY: [place] [address] PATHOLOGIST [employer]ER SRINATH MENDIOLA M.D. Performed By: #### R EDIL PANEL UPP., BIOFIRECOVDET #### [address] Automated blood monocyte cou ntOrdered By: Sushma Nascimento on 09-21-2023 Monocytes (Bld) [#/Vol] 0.8 10*3/uL Normal 0.0-0.8 [facility] Comment on above: Performed By: #### R EDIL PANEL UPP., BIOFIRECOVDET #### [address] Automated eosinophil %Ordere d By: Sushma Nascimento on 09-21-2023 Eosinophils/100 WBC (Bld) 0.1 % Normal . [facility] Comment on above: Performed By: #### R EDIL PANEL UPP., BIOFIRECOVDET #### [address] Automated eosinophil countOr dered By: Sushma Nascimento on 09-21-2023 Eosinophils (Bld) [#/Vol] 0.0 10*3/uL Normal 0.0-0.45 [facility] Comment on above: Performed By: #### R EDIL PANEL UPP., BIOFIRECOVDET #### [address] Automated epithelial cells c ount in urine sediment (number/area)Ordered By: Sushma Nascimento on 09-21-2023 Epithelial cells Auto (Urine sed) [#/Area] 3-4 [HPF] High 0-2 [facility] Automated monocyte %Ordered By: Sushma Nascimento on 09-21-2023 Monocytes/100 WBC (Bld) 6.7 % Normal . [facility] Comment on above: Performed By: #### R EDIL PANEL UPP., BIOFIRECOVDET #### [address] Automated neutrophil %Ordere d By: Sushma Nascimento on 09-21-2023 Neutrophils/100 WBC (Bld) 80.7 % Normal . [facility] Comment on above: Performed By: #### R EDIL PANEL UPP., BIOFIRECOVDET #### [address] [place] [address] [place] Bacteria [Presence] in Urine by AutomatedOrdered By: Sushma Nascimento on 09-21-2023 Bacteria Auto Ql (U) None seen [HPF] None Seen [facility] Barbiturates [Presence] in U rine by Screen methodOrdered By: Sushma Nascimento on 09-21-2023 Barbiturates Screen Ql (U) Negative Negative [facility] Benzodiazepines Screen Ql (U )Ordered By: Sushma Nascimento on 09-21-2023 Benzodiazepines Ql (U) Positive High Negative [facility] Benzoylecgonine [Presence] i n Urine by Screen methodOrdered By: Sushma Nascimento on 09-21-2023 Benzoylecgonine Screen Ql (U) Negative Negative [facility] Bilirubin Test strip Ql (U)O rdered By: Sushma Nascimento on 09-21-2023 Bilirubin Ql (U) 2+ High Negative [facility] Bilirubin.total [Mass/volume ] in Serum or PlasmaOrdered By: Sushma Nascimento on 09-21-2023 Bilirubin [Mass/Vol] 0.7 mg/dL Normal 0.3-1.0 [facility] Comment on above: Performed By: #### R EDIL PANEL UPP., BIOFIRECOVDET #### [facility] [address] [place] [address] Calcium [Mass/volume] in Ser um or PlasmaOrdered By: Sushma Nascimento on 09-21-2023 Calcium [Mass/Vol] 9.6 mg/dL Normal 8.6-10.3 [facility] Comment on above: Performed By: #### R EDIL PANEL UPP., BIOFIRECOVDET #### [facility] [address] [place] [address] [place] Cannabinoids [Presence] in U rine by Screen methodOrdered By: Sushma Nascimento on 09-21-2023 Cannabinoids Screen Ql (U) Negative Negative [facility] Comment on above: These are unconfirme d results and should not be used for legal purposes. Drug Cut-Off Concentration: AMPH 1000 ng/mL MELISA 200 ng/mL SHUBHAM 200 ng/mL COCM 300 ng/mL OP 300 ng/mL PCP 25 ng/mL THC 20 ng/mL Carbon dioxide, total [Moles /volume] in Serum or PlasmaOrdered By: Sushma Nascimento on 09-21-2023 CO2 [Moles/Vol] 39.0 mmol/L High 21.0-31.0 [facility] Comment on above: Performed By: #### R EDIL PANEL UPP., BIOFIRECOVDET #### [place] [address] [place] Chloride [Moles/volume] in S piter or PlasmaOrdered By: Sushma Nascimento on 09-21-2023 Chloride [Moles/Vol] 96 mmol/L Low 98-107 [facility] Comment on above: Performed By: #### R EDIL PANEL UPP., BIOFIRECOVDET #### [address] Color of Urine by AutoOrdere d By: Sushma Nascimento on 09-21-2023 Color (U) Dark yellow Critically abnormal Yellow [facility] Comment on above: Order Comment: Name Collection Type:: Clean-Voided Midstream Performed By: #### A DDONUAPLUS #### [address] Complete Blood Count Auto Di ffon 09-21-2023 Mean Corpuscular HGB Conc 31.5 g/dL Low 32.0-35.0 [facility] Comment on above: Performed By: #### R EDIL PANEL UPP., BIOFIRECOVDET #### [place] [address] [place] Monocytes/100 WBC (Bld) 19.97 % Normal 0.00-20.00 [facility] Comment on above: Performed By: #### R EDIL PANEL UPP., BIOFIRECOVDET #### [place] [address] [place] NRBC% 0.1 /100{WBC} Normal 0-0.5 [facility] Comment on above: Performed By: #### R EDIL PANEL UPP., BIOFIRECOVDET #### [place] [id number] [place] Comprehensive Metabolic Pane phi 09-21-2023 Albumin [Mass/Vol] 3.6 g/dL Normal 3.5-5.7 [facility] Comment on above: Performed By: #### R EDIL PANEL UPP., BIOFIRECOVDET #### [address] Creatinine Clr Calc Pharmacy 44.06 Normal [facility] Comment on above: Result Comment: PERF ORMED BY: [place] [address] PATHOLOGIST ADULT [employer]CHOOL TE[employer]ER SRINATH MENDIOLA M.D. Performed By: #### R EDIL PANEL UPP., BIOFIRECOVDET #### [address] GFR/1.73 sq M.predicted MDRD (S/P/Bld) [Vol rate/Area] mL/min/{1.73_m2} Normal [facility] Comment on above: Performed By: #### R EDIL PANEL UPP., BIOFIRECOVDET #### [address] Creatinine [Mass/volume] in Serum or PlasmaOrdered By: Sushma Nascimento on 09-21-2023 Creatinine [Mass/Vol] 0.81 mg/dL Normal 0.60-1.20 [facility] Comment on above: Performed By: #### R EDIL PANEL UPP., BIOFIRECOVDET #### [address] Dipstick and Microscopicon 0 09-21-2023 Appearance (U) Cloudy Critically abnormal Clear [facility] Comment on above: Order Comment: Name Collection Type:: Clean-Voided Midstream Performed By: #### A DDONUAPLUS #### [address] Bacteria,Urine None Seen Normal None Seen [facility] Comment on above: Order Comment: Name Collection Type:: Clean-Voided Midstream Performed By: #### A DDONUAPLUS #### [place] [address] [place] Bilirubin,Urine 2+ High Negative [facility] Comment on above: Order Comment: Name Collection Type:: Clean-Voided Midstream Performed By: #### A DDONUAPLUS #### [place] [address] [place] Glucose Ql (U) Normal Normal Normal [facility] Comment on above: Order Comment: Name Collection Type:: Clean-Voided Midstream Performed By: #### A DDONUAPLUS #### [place] [address] [place] Hyaline Casts,Urine 9-19 High 0-8 [facility] Comment on above: Order Comment: Name Collection Type:: Clean-Voided Midstream Result Comment: PERF ORMED BY: [place] [address] PATHOLOGIST [employer]ER SRINATH MENDIOLA M.D. Performed By: #### A DDONUAPLUS #### [place] [address] [place] Ketones Ql (U) Trace High Negative [facility] Comment on above: Order Comment: Name Collection Type:: Clean-Voided Midstream Performed By: #### A DDONUAPLUS #### [place] [address] [place] Leukocyte esterase Test strip Ql (U) 1+ High Negative [facility] Comment on above: Order Comment: Name Collection Type:: Clean-Voided Midstream Performed By: #### A DDONUAPLUS #### [place] [address] [place] Nitrite,Urine Negative Normal Negative [facility] Comment on above: Order Comment: Name Collection Type:: Clean-Voided Midstream Performed By: #### A DDONUAPLUS #### [place] [address] [place] Occult Blood,Urine Negative Normal Negative [facility] Comment on above: Order Comment: Name Collection Type:: Clean-Voided Midstream Result Comment: PERF ORMED BY: [place] [address] PATHOLOGIST ADULT [employer]CHO[employer] TE[employer]ER SRINATH MEDNIOLA M.D. Performed By: #### A DDONUAPLUS #### [address] RBC LM.HPF (Urine sed) [#/Area] 0 /[HPF] Normal 0-4 [facility] Comment on above: Order Comment: Name Collection Type:: Clean-Voided Midstream Performed By: #### A DDONUAPLUS #### [address] Specificy [place],Urine 1.022 Normal 1.001-1.03 0 [facility] Comment on above: Order Comment: Name Collection Type:: Clean-Voided Midstream Performed By: #### A DDONUAPLUS #### [address] Squamous Epithelial Cell,Urine 3-4 High 0-2 [facility] Comment on above: Order Comment: Name Collection Type:: Clean-Voided Midstream Performed By: #### A DDONUAPLUS #### [address] Urobilinogen,Urine >=2 High Normal [facility] Comment on above: Order Comment: Name Collection Type:: Clean-Voided Midstream Performed By: #### A DDONUAPLUS #### [place] [address] [place] WBC,Urine 3-4 Normal 0-4 [facility] Comment on above: Order Comment: Name Collection Type:: Clean-Voided Midstream Performed By: #### A DDONUAPLUS #### [place] [address] [place] Drug Screen,Urineon 09-21-19 24 Amphetamine Screen,Urine Negative Normal Negative [facility] Comment on above: Performed By: #### R EDIL PANEL UPP., BIOFIRECOVDET #### [address] Barbiturate Screen,Urine Negative Normal Negative [facility] Comment on above: Performed By: #### R EDIL PANEL UPP., BIOFIRECOVDET #### [address] Benzodiazepines Screen,Urine Positive High Negative [facility] Comment on above: Performed By: #### R EDIL PANEL UPP., BIOFIRECOVDET #### [address] Cannabinoid Screen,Urine Negative Normal Negative [facility] Comment on above: Result Comment: Thes e are unconfirmed results and should not be used for legal purposes. Drug Cut-Off Concentration: AMPH 1000 ng/mL MELISA 200 ng/mL SUHBHAM 200 ng/mL COCM 300 ng/mL OP 300 ng/mL PCP 25 ng/mL THC 20 ng/mL PERFORMED BY: [place] [address] PATHOLOGIST ADULT SCHOOL TE[employer]ER SRINATH MENDIOLA M.D. Performed By: #### R EDIL PANEL UPP., BIOFIRECOVDET #### [address] Cocaine Screen,Urine Negative Normal Negative [facility] Comment on above: Performed By: #### R EDIL PANEL UPP., BIOFIRECOVDET #### [address] Opiate Screen,Urine Negative Normal Negative [facility] Comment on above: Performed By: #### R EDIL PANEL UPP., BIOFIRECOVDET #### [address] Phencyclidine Screen,Urine Negative Normal Negative [facility] Comment on above: Performed By: #### R EDIL PANEL UPP., BIOFIRECOVDET #### [address] Erythrocyte distribution wid th [Ratio] by Automated countOrdered By: Sushma Nascimento on 09-21-2023 Erythrocyte distribution width (RBC) [Ratio] 15.4 % High 11.9-15.3 [facility] Comment on above: Performed By: #### R EDIL PANEL UPP., BIOFIRECOVDET #### [facility] [address] [place] [address] [place] Erythrocytes [#/area] in Uri ne sediment by Automated countOrdered By: Sushma Nascimento on 09-21-2023 RBC Auto (Urine sed) [#/Area] 0-1 [HPF] 0-4 [facility] Erythrocytes [#/volume] in B lood by Automated countOrdered By: Sushma Nascimento on 09-21-2023 RBC (Bld) [#/Vol] 4.50 10*6/uL Normal 3.60-5.00 [facility] Comment on above: Performed By: #### R EDIL PANEL UPP., BIOFIRECOVDET #### [facility] [address] [place] [address] [place] Ethanol [Mass/volume] in Ser um or PlasmaOrdered By: Sushma Nascimento on 09-21-2023 Ethanol [Mass/Vol] mg/dL Normal [facility] Comment on above: Performed By: #### R EDIL PANEL UPP., BIOFIRECOVDET #### [facility] [address] [place] [address] [place] Ethanol [Mass/Vol] TNP [facility] Comment on above: Test not performed Ethyl Alcohol Profileon 08-31 Percent Ethanol Not performed Normal [facility] Comment on above: Result Comment: PERF ORMED BY: [place] [address] PATHOLOGIST ADULT [employer]CHOOL TE[employer]ER SRINATH MENDIOLA M.D. Performed By: #### R EDIL PANEL UPP., BIOFIRECOVDET #### [facility] [address] [place] [address] [place] Glucose [Mass/volume] in Ser um or PlasmaOrdered By: Sushma Nascimento on 09-21-2023 Glucose [Mass/Vol] 188 mg/dL High 70-100 [facility] Comment on above: ADA recommended refe rence rangeRandom Glucose Reference Range is dependent on time and content of last meal. Glucose of more than 200 mg/dL in a nonstressed, ambulatory subject supports the diagnosis of Diabetes Mellitus. Result Comment: [place] om Glucose Reference Range is dependent on time and content of last meal. Glucose of more than 200 mg/dL in a nonstressed, ambulatory subject supports the diagnosis of Diabetes Mellitus. ADA recommended reference range Performed By: #### R EDIL PANEL UPP., BIOFIRECOVDET #### [facility] [address] Hematocrit [Volume Fraction] of Blood by Automated countOrdered By: Sushma Nascimento on 09-21-2023 Hematocrit (Bld) [Volume fraction] 41.8 % Normal 34.0-46.4 [facility] Comment on above: Performed By: #### R EDIL PANEL UPP., BIOFIRECOVDET #### [facility] [address] [place] [address] Hemoglobin [Mass/volume] in BloodOrdered By: Sushma Nascimento on 09-21-2023 Hemoglobin (Bld) [Mass/Vol] 13.2 g/dL Normal 11.8-15.4 [facility] Comment on above: Performed By: #### R EDIL PANEL UPP., BIOFIRECOVDET #### [address] Ketones Auto test strip (U) [Mass/Vol]Ordered By: Sushma Nascimento on 09-21-2023 Ketones (U) [Mass/Vol] Trace High Negative [facility] - UrinalysisOrder ed By: Sushma Nascimento on 09-21-2023 Hyaline casts LM Ql (Urine sed) 9-19 [LPF] High 0-8 [facility] Leukocytes [#/area] in Urine sediment by Automated countOrdered By: Sushma Nascimento on 09-21-2023 WBC Auto (Urine sed) [#/Area] 3-4 [HPF] 0-4 [facility] Leukocytes [#/volume] correc joe for nucleated erythrocytes in Blood by Automated counOrdered By: Sushma Nascimento on 09-21-2023 WBC corrected for nucl RBC Auto (Bld) [#/Vol] 12.6 10*3/uL High 3.8-11.6 [facility] Leukocytes [#/volume] in Blo od by Automated countOrdered By: Sushma Nascimento on 09-21-2023 WBC (Bld) [#/Vol] 12.6 10*3/uL High 3.8-11.6 [facility] Comment on above: Performed By: #### R EDIL PANEL UPP., BIOFIRECOVDET #### [facility] [address] Lymphocytes [#/volume] in Bl ood by Automated countOrdered By: Sushma Nascimento on 09-21-2023 Lymphocytes (Bld) [#/Vol] 1.5 10*3/uL Normal 1.00-4.8 [facility] Comment on above: Performed By: #### R EDIL PANEL UPP., BIOFIRECOVDET #### [address] Lymphocytes/100 leukocytes i n Blood by Automated countOrdered By: Susham Nascimento on 09-21-2023 Lymphocytes/100 WBC (Bld) 11.9 % Normal . [facility] Comment on above: Performed By: #### R EDIL PANEL UPP., BIOFIRECOVDET #### [facility] [address] [place] [address] MCH [Entitic mass] by [employer] joe countOrdered By: Sushmamarky Nascimento on 09-21-2023 MCH (RBC) [Entitic mass] 29.3 pg Normal 24.7-34.3 [facility] Comment on above: Performed By: #### R EDIL PANEL UPP., BIOFIRECOVDET #### [facility] [address] [place] [address] MCHC Auto (RBC) [Mass/Vol]Or dered By: Sushma Nascimento on 09-21-2023 MCHC (RBC) [Mass/Vol] 31.5 g/dL Low 32.0-35.0 [facility] MCV [Entitic volume] by Auto mated countOrdered By: Sushma Nascimento on 09-21-2023 MCV (RBC) [Entitic vol] 92.8 fL Normal 80-100 [facility] Comment on above: Performed By: #### R EDIL PANEL UPP., BIOFIRECOVDET #### [facility] [address] Monocyte distribution width [Entitic volume] in Blood by AutomatedOrdered By: Sushma Nascimento on 09-21-2023 Monocyte distribution width Auto (Bld) [Entitic vol] 19.97 % 0.00-20.00 [facility] Neutrophils [#/volume] in Bl ood by Automated countOrdered By: Sushma Nascimento on 09-21-2023 Neutrophils (Bld) [#/Vol] 10.2 10*3/uL High 1.8-7.7 [facility] Comment on above: Performed By: #### R EDIL PANEL UPP., BIOFIRECOVDET #### [facility] [address] Nitrite Test strip Ql (U)Ord ered By: Sushma Nascimento on 09-21-2023 Nitrite Ql (U) Negative Negative [facility] No Panel InformationOrdered By: Sushma Nascimento on 09-21-2023 Estimated GFR (CKD-EPI) > 60.0 mL/Min [facility] Creatinine Clearance (Chem 44.06 [facility] Nucleated erythrocytes [Pres ence] in Blood by Automated countOrdered By: Sushma Nascimento on 09-21-2023 Nucleated RBC Auto Ql (Bld) 0.1 /100{WBC} 0-0.5 [facility] Opiates [Presence] in Urine by Screen methodOrdered By: Sushma Nascimento on 09-21-2023 Opiates Screen Ql (U) Negative Negative [facility] Phencyclidine Screen Ql (U)O rdered By: Sushma Nascimento on 09-21-2023 Phencyclidine Ql (U) Negative Negative [facility] Platelet mean volume [Entiti c volume] in Blood by Automated countOrdered By: Sushma Nascimento on 09-21-2023 Platelet mean volume (Bld) [Entitic vol] 8.0 fL Normal 6.3-10.7 [facility] Comment on above: Performed By: #### R EDIL PANEL UPP., BIOFIRECOVDET #### [facility] [address] [place] [address] [place] Platelets [#/volume] in Bloo d by Automated countOrdered By: Sushma Nascimento on 09-21-2023 Platelets (Bld) [#/Vol] 181 10*3/uL Normal 150-450 [facility] Comment on above: Performed By: #### R EDIL PANEL UPP., BIOFIRECOVDET #### [address] Potassium [Moles/volume] in Serum or PlasmaOrdered By: Sushma Nascimento on 09-21-2023 Potassium [Moles/Vol] 4.4 mmol/L Normal 3.5-5.1 [facility] Comment on above: Performed By: #### R EDIL PANEL UPP., BIOFIRECOVDET #### [facility] [address] [place] [address] Protein [Mass/volume] in Ser um or PlasmaOrdered By: Sushma Nascimento on 09-21-2023 Protein [Mass/Vol] 6.8 g/dL Normal 6.4-8.9 [facility] Comment on above: Performed By: #### R EDIL PANEL UPP., BIOFIRECOVDET #### [address] Serum globulin measurement b y calculation (mass/volume)Ordered By: Sushma Nascimento on 09-21-2023 Globulin (S) [Mass/Vol] 3.2 g/dL [facility] Comment on above: Performed By: #### R EDIL PANEL UPP., BIOFIRECOVDET #### [facility] [address] [place] [address] Serum or plasma albumin/glob ulin mass ratioOrdered By: Sushma Nascimento on 09-21-2023 Albumin/Globulin [Mass ratio] 1.1 {ratio} [facility] Comment on above: Performed By: #### R EDIL PANEL UPP., BIOFIRECOVDET #### [address] Serum or plasma anion gap de terminationOrdered By: Sushma Nascimento on 09-21-2023 Anion gap [Moles/Vol] 8.4 mmol/L Normal 6.0-15.0 [facility] Comment on above: Performed By: #### R EDIL PANEL UPP., BIOFIRECOVDET #### [address] Sodium [Moles/volume] in Ser um or PlasmaOrdered By: Sushma Nascimento on 09-21-2023 Sodium [Moles/Vol] 139 mmol/L Normal 136-145 [facility] Comment on above: Performed By: #### R EDIL PANEL UPP., BIOFIRECOVDET #### [address] Specific gravity Auto test s trip (U) [Rel density]Ordered By: Sushma Nascimento on 09-21-2023 Specific gravity (U) [Rel density] 1.022 1.001-1.[address] [facility] Troponin I High Sensitivityo n 09-21-2023 Troponin I High Sensitivity 7.6 pg/mL Normal 0.0-15.0 [facility] Comment on above: Result Comment: PERF ORMED BY: [place] [address] PATHOLOGIST [employer] SRINATH MENDIOLA M.D. Performed By: #### H S TROP ####[address] Troponin I.cardiac [Mass/vol ume] in Serum or Plasma by Detection limit <= 0.01 ng/Ordered By: Sushma Nascimento on 09-21-2023 Troponin I.cardiac DL <= 0.01 ng/mL [Mass/Vol] 7.6 pg/mL 0.0-15.0 [facility] Urea nitrogen [Mass/volume] in Serum or PlasmaOrdered By: Sushma Nascimento on 09-21-2023 Urea nitrogen [Mass/Vol] 16 mg/dL Normal 7-25 [facility] Comment on above: Performed By: #### R EDIL PANEL UPP., BIOFIRECOVDET #### [address] Urine clarity by refractomet ry automatedOrdered By: Sushma Nascimento on 09-21-2023 Clarity Refractometry automated (U) Cloudy Abnormal Clear [facility] Urine glucose measurement by automated test strip (mass/volume)Ordered By: Sushma Nascimento on 09-21-2023 Glucose Auto test strip (U) [Mass/Vol] Normal mg/dL Normal [facility] Urine hemoglobin detection b y automated test stripOrdered By: Sushma Nascimento on 09-21-2023 Hemoglobin Auto test strip Ql (U) Negative Negative [facility] Urine leukocyte esterase det ection by automated test stripOrdered By: Sushma Nascimento on 09-21-2023 Leukocyte esterase Auto test strip Ql (U) 1+ High Negative [facility] Urine pH measurement by auto mated test stripOrdered By: Sushma Nascimento on 09-21-2023 pH (U) 5.5 [pH] Normal 5.0-9.0 [facility] Comment on above: Order Comment: Name Collection Type:: Clean-Voided Midstream Performed By: #### A DDONUAPLUS #### [facility] [address] [place] [address] Urine protein measurement by automated test strip (mass/volume)Ordered By: Sushma Nascimento on 09-21-2023 Protein (U) [Mass/Vol] 30 mg/dL High Negative [facility] Comment on above: Order Comment: Name Collection Type:: Clean-Voided Midstream Performed By: #### A DDONUAPLUS #### [facility] [address] [place] [address] Urobilinogen Auto test strip (U) [Mass/Vol]Ordered By: Sushma Nascimento on 09-21-2023 Urobilinogen (U) [Mass/Vol] mg/dL High Normal [facility] Activated partial thrombopla stin time (aPTT) in platelet poor plasma by coagulation aOrdered By: Don Rapp on 08-17-2023 aPTT Coag (PPP) [Time] 33.5 s 25.1-36.5 [facility] Comment on above: A hematocrit value g reater than 55% may lead to inaccurate results in coagulation testing. Patients having hematocrit values >55% require a special collection tube for coagulation studies. Please contact the laboratory at [phone] for redraw instructions. Alanine aminotransferase [En zymatic activity/volume] in Serum or PlasmaOrdered By: Don Rapp on 08-17-2023 ALT [Catalytic activity/Vol] 23 U/L Normal 7-52 [facility] Comment on above: Performed By: #### M G, HS TROP, BNP, CBC, PTT, PT, CMP, CK #### [place] [address] [place] Albumin [Mass/volume] in Ser um or Plasma by Bromocresol green (BCG) dye binding methoOrdered By: Don Rapp on 08-17-2023 Albumin BCG dye [Mass/Vol] 3.4 g/dL Low 3.5-5.7 [facility] Alkaline phosphatase [Enzyma tic activity/volume] in Serum or PlasmaOrdered By: Don Rapp on 08-17-2023 ALP [Catalytic activity/Vol] 92 U/L Normal 34-104 [facility] Comment on above: Performed By: #### M G, HS TROP, BNP, CBC, PTT, PT, CMP, CK #### [address] Arterial Blood Gason 024 ABG Base Excess -1.3 mmol/L Normal -3.0-3.0 [facility] Comment on above: Performed By: #### R EDIL PANEL UPP., BIOFIRECOVDET #### [address] ABG Frac Inspired O2 21 % Normal [facility] Comment on above: Performed By: #### R EDIL PANEL UPP., BIOFIRECOVDET #### [address] ABG Oxygen Content 6.6 mmol/L Normal 6.6-9.7 [facility] Comment on above: Performed By: #### R EDIL PANEL UPP., BIOFIRECOVDET #### [address] ABG Oxygen Saturation 96.0 % Normal 95.0-100.0 [facility] Comment on above: Performed By: #### R EDIL PANEL UPP., BIOFIRECOVDET #### [address] ABG PCO2 38.7 mm[Hg] Normal 35.0-45.0 [facility] Comment on above: Performed By: #### R EDIL PANEL UPP., BIOFIRECOVDET #### [address] ABG PH 7.40 Normal 7.35-7.45 [facility] Comment on above: Performed By: #### R EDIL PANEL UPP., BIOFIRECOVDET #### [address] ABG PO2 78.7 mm[Hg] Low 80.0-100.0 [facility] Comment on above: Performed By: #### R EDIL PANEL UPP., BIOFIRECOVDET #### [address] Respiratory Critical Normal [facility] Comment on above: Result Comment: Crit ical Value called on: 08/17/2023 at 14:28 PERFORMED BY: [place] [address] PATHOLOGIST [employer] SRINATH MENDIOLA M.D. Performed By: #### R EDIL PANEL UPP., BIOFIRECOVDET #### [address] VBG Draw Site Left Radial Normal [facility] Comment on above: Performed By: #### R EDIL PANEL UPP., BIOFIRECOVDET #### [address] Arterial Blood GasOrdered By : Don Rapp on 08-17-2023 CO2 [Moles/Vol] 24.5 mmol/L Normal 23.0-27.0 [facility] Comment on above: Performed By: #### R EDIL PANEL UPP., BIOFIRECOVDET #### [address] HCO3 (Bld) [Moles/Vol] 23.3 mmol/L Normal 23.0-29.0 [facility] Comment on above: Performed By: #### R EDIL PANEL UPP., BIOFIRECOVDET #### [address] Aspartate aminotransferase [ Enzymatic activity/volume] in Serum or PlasmaOrdered By: Don Rapp on 08-17-2023 AST [Catalytic activity/Vol] 27 U/L Normal 13-39 [facility] Comment on above: Performed By: #### M G, HS TROP, BNP, CBC, PTT, PT, CMP, CK #### [address] Automated basophil %Ordered By: Don Rapp on 08-17-2023 Basophils/100 WBC (Bld) 1.2 % Normal . [facility] Comment on above: Performed By: #### M G, HS TROP, BNP, CBC, PTT, PT, CMP, CK #### [address] Automated basophil countOrde red By: Don Rapp on 08-17-2023 Basophils (Bld) [#/Vol] 0.0 10*3/uL Normal 0.0-0.2 [facility] Comment on above: Result Comment: PERF ORMED BY: [place] [address] PATHOLOGIST [employer] SRINATH MENDIOLA M.D. Performed By: #### M G, HS TROP, BNP, CBC, PTT, PT, CMP, CK #### [address] Automated blood monocyte cou ntOrdered By: Don Rapp on 08-17-2023 Monocytes (Bld) [#/Vol] 0.4 10*3/uL Normal 0.0-0.8 [facility] Comment on above: Performed By: #### M G, HS TROP, BNP, CBC, PTT, PT, CMP, CK #### [address] Automated eosinophil %Ordere d By: Don Rapp on 08-17-2023 Eosinophils/100 WBC (Bld) 0.8 % Normal . [facility] Comment on above: Performed By: #### M G, HS TROP, BNP, CBC, PTT, PT, CMP, CK #### [facility] [address] Automated eosinophil countOr dered By: Don Rapp on 08-17-2023 Eosinophils (Bld) [#/Vol] 0.0 10*3/uL Normal 0.0-0.45 [facility] Comment on above: Performed By: #### M G, HS TROP, BNP, CBC, PTT, PT, CMP, CK #### [facility] [address] [place] [address] Automated epithelial cells c ount in urine sediment (number/area)Ordered By: Don Rapp on 08-17-2023 Epithelial cells Auto (Urine sed) [#/Area] 0-1 [HPF] 0-2 [facility] Automated monocyte %Ordered By: Don Rapp on 08-17-2023 Monocytes/100 WBC (Bld) 9.1 % Normal . [facility] Comment on above: Performed By: #### M G, HS TROP, BNP, CBC, PTT, PT, CMP, CK #### [address] Automated neutrophil %Ordere d By: Don Rapp on 08-17-2023 Neutrophils/100 WBC (Bld) 55.2 % Normal . [facility] Comment on above: Performed By: #### M G, HS TROP, BNP, CBC, PTT, PT, CMP, CK #### [facility] [address] [place] [address] BNP ser/plasOrdered By: Annette Rapp on 08-17-2023 Natriuretic peptide B (Bld) [Mass/Vol] 234.0 pg/mL High 5-100 [facility] Comment on above: Result Comment: PERF ORMED BY: [place] [address] PATHOLOGIST [employer] SRINATH MENDIOLA M.D. Performed By: #### M G, HS TROP, BNP, CBC, PTT, PT, CMP, CK #### [facility] [address] [place] [address] Bacteria [Presence] in Urine by AutomatedOrdered By: Don Rapp on 08-17-2023 Bacteria Auto Ql (U) None seen [HPF] None Seen [facility] Bilirubin Test strip Ql (U)O rdered By: Don Rapp on 08-17-2023 Bilirubin Ql (U) Negative Negative [facility] Bilirubin.total [Mass/volume ] in Serum or PlasmaOrdered By: Don Rapp on 08-17-2023 Bilirubin [Mass/Vol] 0.7 mg/dL Normal 0.3-1.0 [facility] Comment on above: Performed By: #### M G, HS TROP, BNP, CBC, PTT, PT, CMP, CK #### [address] BioFire Detectedon BioFire Detected Detected Critically abnormal Not Detecte [facility] Comment on above: Result Comment: This is a duplicate RP2.1 COVID (PCR) result to be used for statistical tracking purpose only. PERFORMED BY: [place] [address] PATHOLOGIST [employer] SRINATH MENDIOLA M.D. Performed By: #### R EDIL PANEL UPP., BIOFIRECOVDET #### [address] COVID-19 Detected/Not Detect edOrdered By: Don Rapp on 08-17-2023 SARS-CoV-2 (COVID-19) RNA SANDIP+non-probe Ql (Nph) Detected Abnormal Not Detecte [facility] Comment on above: This is a duplicate RP2.1 COVID (PCR) result to be used for statistical tracking purpose only. Calcium [Mass/volume] in Ser um or PlasmaOrdered By: Don Rapp on 08-17-2023 Calcium [Mass/Vol] 8.8 mg/dL Normal 8.6-10.3 [facility] Comment on above: Performed By: #### M G, HS TROP, BNP, CBC, PTT, PT, CMP, CK #### [address] Carbon dioxide, total [Moles /volume] in Serum or PlasmaOrdered By: Don Rapp on 08-17-2023 CO2 [Moles/Vol] 28.7 mmol/L Normal 21.0-31.0 [facility] Comment on above: Performed By: #### M G, HS TROP, BNP, CBC, PTT, PT, CMP, CK #### [address] Chloride [Moles/volume] in S piter or PlasmaOrdered By: Don Rapp on 08-17-2023 Chloride [Moles/Vol] 104 mmol/L Normal 98-107 [facility] Comment on above: Performed By: #### M G, HS TROP, BNP, CBC, PTT, PT, CMP, CK #### [address] Color of Urine by AutoOrdere d By: Don Rapp on 08-17-2023 Color (U) Yellow Normal Yellow [facility] Comment on above: Order Comment: Name Collection Type:: Clean-Voided Midstream Performed By: #### R EDIL PANEL UPP., BIOFIRECOVDET #### [address] Complete Blood Count Auto Di ffon 08-17-2023 Mean Corpuscular HGB Conc 32.3 g/dL Normal 32.0-35.0 [facility] Comment on above: Performed By: #### M G, HS TROP, BNP, CBC, PTT, PT, CMP, CK #### [place] [address] [place] Monocytes/100 WBC (Bld) 21.58 % High 0.00-20.00 [facility] Comment on above: Result Comment: For adults in ED, MDW > 20.0 may be associated with a higher risk of sepsis during the first 12 hrs of hospital admission Performed By: #### M G, HS TROP, BNP, CBC, PTT, PT, CMP, CK #### [place] [id number] [place] NRBC% 0.1 /100{WBC} Normal 0-0.5 [facility] Comment on above: Performed By: #### M G, HS TROP, BNP, CBC, PTT, PT, CMP, CK #### [address] Comprehensive Metabolic Pane phi 08-17-2023 Albumin [Mass/Vol] 3.4 g/dL Low 3.5-5.7 [facility] Comment on above: Performed By: #### M G, HS TROP, BNP, CBC, PTT, PT, CMP, CK #### [address] Creatinine Clr Calc Pharmacy 43.24 Normal [facility] Comment on above: Performed By: #### M G, HS TROP, BNP, CBC, PTT, PT, CMP, CK #### [address] GFR/1.73 sq M.predicted MDRD (S/P/Bld) [Vol rate/Area] mL/min/{1.73_m2} Normal [facility] Comment on above: Performed By: #### M G, HS TROP, BNP, CBC, PTT, PT, CMP, CK #### [address] Creatine kinase [Enzymatic a ctivity/volume] in Serum or PlasmaOrdered By: Don Rapp on 08-17-2023 CK [Catalytic activity/Vol] 38 U/L Normal 30-223 [facility] Comment on above: Performed By: #### R EDIL PANEL UPP., BIOFIRECOVDET #### [address] Creatinine [Mass/volume] in Serum or PlasmaOrdered By: Don Rapp on 08-17-2023 Creatinine [Mass/Vol] 0.67 mg/dL Normal 0.60-1.20 [facility] Comment on above: Performed By: #### M G, HS TROP, BNP, CBC, PTT, PT, CMP, CK #### [address] [address] [place] Dipstick and Microscopicon 0 08-17-2023 Appearance (U) Clear Normal Clear [facility] Comment on above: Order Comment: Name Collection Type:: Clean-Voided Midstream Performed By: #### R EDIL PANEL UPP., BIOFIRECOVDET #### [address] Bacteria,Urine None Seen Normal None Seen [facility] Comment on above: Order Comment: Name Collection Type:: Clean-Voided Midstream Performed By: #### R EDIL PANEL UPP., BIOFIRECOVDET #### [address] Bilirubin,Urine Negative Normal Negative [facility] Comment on above: Order Comment: Name Collection Type:: Clean-Voided Midstream Performed By: #### R EDIL PANEL UPP., BIOFIRECOVDET #### [address] Glucose Ql (U) Normal Normal Normal [facility] Comment on above: Order Comment: Name Collection Type:: Clean-Voided Midstream Performed By: #### R EDIL PANEL UPP., BIOFIRECOVDET #### [address] Hyaline Casts,Urine 0-8 Normal 0-8 [facility] Comment on above: Order Comment: Name Collection Type:: Clean-Voided Midstream Result Comment: PERF ORMED BY: [place] [address] PATHOLOGIST [employer] SRINATH MENDIOLA M.D. Performed By: #### R EDIL PANEL UPP., BIOFIRECOVDET #### [address] Ketones Ql (U) Trace High Negative [facility] Comment on above: Order Comment: Name Collection Type:: Clean-Voided Midstream Performed By: #### R EDIL PANEL UPP., BIOFIRECOVDET #### [address] Leukocyte esterase Test strip Ql (U) Negative Normal Negative [facility] Comment on above: Order Comment: Name Collection Type:: Clean-Voided Midstream Performed By: #### R EDIL PANEL UPP., BIOFIRECOVDET #### [address] Nitrite,Urine Negative Normal Negative [facility] Comment on above: Order Comment: Name Collection Type:: Clean-Voided Midstream Performed By: #### R EDIL PANEL UPP., BIOFIRECOVDET #### [address] Occult Blood,Urine Negative Normal Negative [facility] Comment on above: Order Comment: Name Collection Type:: Clean-Voided Midstream Result Comment: PERF ORMED BY: [place] [address] PATHOLOGIST [employer] SRINATH MENDIOLA M.D. Performed By: #### R EDIL PANEL UPP., BIOFIRECOVDET #### [address] RBC LM.HPF (Urine sed) [#/Area] 0 /[HPF] Normal 0-4 [facility] Comment on above: Order Comment: Name Collection Type:: Clean-Voided Midstream Performed By: #### R EDIL PANEL UPP., BIOFIRECOVDET #### [address] Specificy [place],Urine 1.014 Normal 1.001-1.03 0 [facility] Comment on above: Order Comment: Name Collection Type:: Clean-Voided Midstream Performed By: #### R EDIL PANEL UPP., BIOFIRECOVDET #### [address] Squamous Epithelial Cell,Urine 0-1 Normal 0-2 [facility] Comment on above: Order Comment: Name Collection Type:: Clean-Voided Midstream Performed By: #### R EDIL PANEL UPP., BIOFIRECOVDET #### [address] Urobilinogen,Urine Normal Normal Normal [facility] Comment on above: Order Comment: Name Collection Type:: Clean-Voided Midstream Performed By: #### R EDIL PANEL UPP., BIOFIRECOVDET #### [facility] [address] WBC LM.HPF (Urine sed) [#/Area] 0 /[HPF] Normal 0-4 [facility] Comment on above: Order Comment: Name Collection Type:: Clean-Voided Midstream Performed By: #### R EDIL PANEL UPP., BIOFIRECOVDET #### [facility] [address] ECG 12 lead ECGon 08-17-2023 ECG 12 lead ECG [facility] [place] [address] [place] [address] Electrocardiograph Report Signed Patient: Quin Perez MR#: [id number] : 1950 Acct:[id number] Age/Sex: 73 / F ADM Date: 08/17/23 Loc: ER Room: Type: [facility] ER Attending Dr: Ordering Provider: Don [...] ECGs available Confirmed by SUSHMA NASCIMENTO DO ([id number]) on 08/17/2023 7:58:05 PM Referred By: Electronically Signed By:SUSHMA NASCIMENTO DO Transcribed By: MUS Signed By Sushma Nascimento DO 08/16 Normal [facility] Erythrocyte distribution wid th [Ratio] by Automated countOrdered By: Don Rapp on 08-17-2023 Erythrocyte distribution width (RBC) [Ratio] 14.8 % Normal 11.9-15.3 [facility] Comment on above: Performed By: #### M G, HS TROP, BNP, CBC, PTT, PT, CMP, CK #### [facility] [address] [place] [address] [place] Erythrocytes [#/area] in Uri ne sediment by Automated countOrdered By: Don Rapp on 08-17-2023 RBC Auto (Urine sed) [#/Area] 0-1 [HPF] 0-4 [facility] Erythrocytes [#/volume] in B lood by Automated countOrdered By: Don Rapp on 08-17-2023 RBC (Bld) [#/Vol] 4.06 10*6/uL Normal 3.60-5.00 [facility] Comment on above: Performed By: #### M G, HS TROP, BNP, CBC, PTT, PT, CMP, CK #### [facility] [address] [place] [address] [place] Glucose [Mass/volume] in Ser um or PlasmaOrdered By: Don Rapp on 08-17-2023 Glucose [Mass/Vol] 79 mg/dL Normal 70-100 [facility] Comment on above: ADA recommended refe rence rangeRandom Glucose Reference Range is dependent on time and content of last meal. Glucose of more than 200 mg/dL in a nonstressed, ambulatory subject supports the diagnosis of Diabetes Mellitus. Result Comment: [place] om Glucose Reference Range is dependent on time and content of last meal. Glucose of more than 200 mg/dL in a nonstressed, ambulatory subject supports the diagnosis of Diabetes Mellitus. ADA recommended reference range Performed By: #### M G, HS TROP, BNP, CBC, PTT, PT, CMP, CK #### [facility] [address] [place] [id number] [place] Hematocrit [Volume Fraction] of Blood by Automated countOrdered By: Don Rapp on 08-17-2023 Hematocrit (Bld) [Volume fraction] 38.3 % Normal 34.0-46.4 [facility] Comment on above: Performed By: #### M G, HS TROP, BNP, CBC, PTT, PT, CMP, CK #### [facility] [address] [place] [address] [place] Hemoglobin [Mass/volume] in BloodOrdered By: Don Rapp on 08-17-2023 Hemoglobin (Bld) [Mass/Vol] 12.4 g/dL Normal 11.8-15.4 [facility] Comment on above: Performed By: #### M G, HS TROP, BNP, CBC, PTT, PT, CMP, CK #### [facility] [address] INR in Platelet poor plasma by Coagulation assayOrdered By: Don Rapp on 08-17-2023 INR Coag (PPP) [Relative time] 0.9 {INR} Normal [facility] Comment on above: INR Therapeutic Rang [...] valves: 3 - 4.5 Performed By: #### R EDIL PANEL UPP., BIOFIRECOVDET #### [facility] [address] Ketones Auto test strip (U) [Mass/Vol]Ordered By: Don Rapp on 08-17-2023 Ketones (U) [Mass/Vol] Trace High Negative [facility] - UrinalysisOrder ed By: Don Rapp on 08-17-2023 Hyaline casts LM Ql (Urine sed) 0-8 [LPF] 0-8 [facility] Leukocytes [#/area] in Urine sediment by Automated countOrdered By: Don Rapp on 08-17-2023 WBC Auto (Urine sed) [#/Area] 0-1 [HPF] 0-4 [facility] Leukocytes [#/volume] correc joe for nucleated erythrocytes in Blood by Automated counOrdered By: Don Rapp on 08-17-2023 WBC corrected for nucl RBC Auto (Bld) [#/Vol] 4.1 10*3/uL 3.8-11.6 [facility] Leukocytes [#/volume] in Blo od by Automated countOrdered By: Don Rapp on 08-17-2023 WBC (Bld) [#/Vol] 4.1 10*3/uL Normal 3.8-11.6 [facility] Comment on above: Performed By: #### M G, HS TROP, BNP, CBC, PTT, PT, CMP, CK #### [facility] [address] [place] [address] [place] Lymphocytes [#/volume] in Bl ood by Automated countOrdered By: Don Rapp on 08-17-2023 Lymphocytes (Bld) [#/Vol] 1.4 10*3/uL Normal 1.00-4.8 [facility] Comment on above: Performed By: #### M G, HS TROP, BNP, CBC, PTT, PT, CMP, CK #### [facility] [address] [place] [address] [place] Lymphocytes/100 leukocytes i n Blood by Automated countOrdered By: Don Rapp on 08-17-2023 Lymphocytes/100 WBC (Bld) 33.7 % Normal . [facility] Comment on above: Performed By: #### M G, HS TROP, BNP, CBC, PTT, PT, CMP, CK #### [facility] [address] [place] [address] MCH [Entitic mass] by Automa joe countOrdered By: Don Rapp on 08-17-2023 MCH (RBC) [Entitic mass] 30.4 pg Normal 24.7-34.3 [facility] Comment on above: Performed By: #### M G, HS TROP, BNP, CBC, PTT, PT, CMP, CK #### [facility] [address] [place] [address] MCHC Auto (RBC) [Mass/Vol]Or dered By: Don Rapp on 08-17-2023 MCHC (RBC) [Mass/Vol] 32.3 g/dL 32.0-35.0 [facility] MCV [Entitic volume] by Auto mated countOrdered By: Don Rapp on 08-17-2023 MCV (RBC) [Entitic vol] 94.3 fL Normal 80-100 [facility] Comment on above: Performed By: #### M G, HS TROP, BNP, CBC, PTT, PT, CMP, CK #### [facility] [address] Magnesium [Mass/volume] in S piter or PlasmaOrdered By: Don Rapp on 08-17-2023 Magnesium [Mass/Vol] 1.8 mg/dL Low 1.9-2.7 [facility] Comment on above: Result Comment: PERF ORMED BY: [place] [address] PATHOLOGIST ADULT SCHOOL TEACHER SRINATH MENDIOLA M.D. Performed By: #### M G, HS TROP, BNP, CBC, PTT, PT, CMP, CK #### [facility] [address] Monocyte distribution width [Entitic volume] in Blood by AutomatedOrdered By: Don Rapp on 08-17-2023 Monocyte distribution width Auto (Bld) [Entitic vol] 21.58 % High 0.00-20.00 [facility] Comment on above: For adults in ED, MD W > 20.0 may be associated with a higher risk of sepsis during the first 12 hrs of hospital admission Neutrophils [#/volume] in Bl ood by Automated countOrdered By: Don Rapp on 08-17-2023 Neutrophils (Bld) [#/Vol] 2.3 10*3/uL Normal 1.8-7.7 [facility] Comment on above: Performed By: #### M G, HS TROP, BNP, CBC, PTT, PT, CMP, CK #### [facility] [address] Nitrite Test strip Ql (U)Ord ered By: Don Rapp on 08-17-2023 Nitrite Ql (U) Negative Negative [facility] No Panel InformationOrdered By: Don Rapp on 08-17-2023 Arterial Blood Base Excess -1.3 mmol/L -3.0-3.0 [facility] Arterial Blood Oxygen Content 6.6 mmol/L 6.6-9.7 [facility] Arterial Blood Oxygen Saturation 96.0 % 95.0-100.0 [facility] Arterial Blood Partial Pressure CO2 38.7 mm[Hg] 35.0-45.0 [facility] Arterial Blood Partial Pressure O2 78.7 mm[Hg] Low 80.0-100.0 [facility] Arterial Blood pH 7.40 7.35-7.45 [facility] Blood Gas Critical Value See comment [facility] Comment on above: Critical Value rivera d on: 08/17/2023 at 14:28 Blood Gas Sample Site Left radial [facility] FiO2 21 % [facility] Estimated GFR (CKD-EPI) > 60.0 mL/Min [facility] Creatinine Clearance (Chem 43.24 [facility] Nucleated erythrocytes [Pres ence] in Blood by Automated countOrdered By: Don Rapp on 08-17-2023 Nucleated RBC Auto Ql (Bld) 0.1 /100{WBC} 0-0.5 [facility] Partial Thromboplastin Timeo n 08-17-2023 aPTT Coag (Bld) [Time] 33.5 s Normal 25.1-36.5 Th e [facility] Comment on above: Result Comment: A he matocrit value greater than 55% may lead to inaccurate results in coagulation testing. Patients having hematocrit values >55% require a special collection tube for coagulation studies. Please contact the laboratory at [phone] for redraw instructions. PERFORMED BY: [facility] [address] [place] [address] PATHOLOGIST ADULT SCHOOL TEACHER SRINATH MENDIOLA M.D. Performed By: #### R EDIL PANEL UPP., BIOFIRECOVDET #### [address] Platelet mean volume [Entiti c volume] in Blood by Automated countOrdered By: Don Rapp on 08-17-2023 Platelet mean volume (Bld) [Entitic vol] 8.9 fL Normal 6.3-10.7 [facility] Comment on above: Performed By: #### M G, HS TROP, BNP, CBC, PTT, PT, CMP, CK #### [facility] [address] Platelets [#/volume] in Bloo d by Automated countOrdered By: Don Rapp on 08-17-2023 Platelets (Bld) [#/Vol] 142 10*3/uL Low 150-450 [facility] Comment on above: Performed By: #### M G, HS TROP, BNP, CBC, PTT, PT, CMP, CK #### [facility] [address] Potassium [Moles/volume] in Serum or PlasmaOrdered By: Don Rapp on 08-17-2023 Potassium [Moles/Vol] 4.3 mmol/L Normal 3.5-5.1 [facility] Comment on above: Hemolysis is present at a level that could interfere with the result.Contact lab if redraw is required Result Comment: Hemo lysis is present at a level that could interfere with the result. Contact lab if redraw is required Performed By: #### M G, HS TROP, BNP, CBC, PTT, PT, CMP, CK #### [address] Protein [Mass/volume] in Ser um or PlasmaOrdered By: Don Rapp on 08-17-2023 Protein [Mass/Vol] 6.5 g/dL Normal 6.4-8.9 [facility] Comment on above: Performed By: #### M G, HS TROP, BNP, CBC, PTT, PT, CMP, CK #### [facility] [address] Prothrombin time (PT)Ordered By: Don Rapp on 08-17-2023 PT Coag (PPP) [Time] 10.7 s Normal 9.0-12.9 [facility] Comment on above: A hematocrit value g reater than 55% may lead to inaccurate results in coagulation testing. Patients having hematocrit values >55% require a special collection tube for coagulation studies. Please contact the laboratory at [phone] for redraw instructions. Result Comment: A he matocrit value greater than 55% may lead to inaccurate results in coagulation testing. Patients having hematocrit values >55% require a special collection tube for coagulation studies. Please contact the laboratory at [phone] for redraw instructions. Performed By: #### R EDIL PANEL UPP., BIOFIRECOVDET #### [facility] [address] Respiratory (Upper) Panel, P CRon 08-17-2023 Respiratory [...] A H3 Blank Space -- PERFORMED BY: [place] [address] PATHOLOGIST ADULT SCHOOL TEACHER SRINATH MENDIOLA M.D. Normal [facility] Comment on above: Performed By: #### R EDIL PANEL UPP., BIOFIRECOVDET #### [address] Respiratory pathogens DNA an d RNA panel - Nasopharynx by SANDIP with non-probe detectionOrdered By: Don Rapp on 08-17-2023 Respiratory pathogens DNA and RNA panel SANDIP+non-probe (Nph) [facility] Serum globulin measurement b y calculation (mass/volume)Ordered By: Don Rapp on 08-17-2023 Globulin (S) [Mass/Vol] 3.1 g/dL [facility] Comment on above: Performed By: #### M G, HS TROP, BNP, CBC, PTT, PT, CMP, CK #### [facility] [address] [place] [address] Serum or plasma albumin/glob ulin mass ratioOrdered By: Don Rapp on 08-17-2023 Albumin/Globulin [Mass ratio] 1.1 {ratio} [facility] Comment on above: Performed By: #### M G, HS TROP, BNP, CBC, PTT, PT, CMP, CK #### [facility] [address] [place] [address] Serum or plasma anion gap de terminationOrdered By: Don Rapp on 08-17-2023 Anion gap [Moles/Vol] 10.6 mmol/L Normal 6.0-15.0 [facility] Comment on above: Performed By: #### M G, HS TROP, BNP, CBC, PTT, PT, CMP, CK #### [facility] [address] [place] [address] Sodium [Moles/volume] in Ser um or PlasmaOrdered By: Don Rapp on 08-17-2023 Sodium [Moles/Vol] 139 mmol/L Normal 136-145 [facility] Comment on above: Performed By: #### M G, HS TROP, BNP, CBC, PTT, PT, CMP, CK #### [facility] [address] Specific gravity Auto test s trip (U) [Rel density]Ordered By: Don Rapp on 08-17-2023 Specific gravity (U) [Rel density] 1.014 1.001-1.[address] [facility] Troponin I High Sensitivityo n 08-17-2023 Troponin I High Sensitivity 4.2 pg/mL Normal 0.0-15.0 [facility] Comment on above: Result Comment: PERF ORMED BY: [place] [address] PATHOLOGIST ADULT SCHOOL TEACHER SRINATH MENDIOLA M.D. Performed By: #### R EDIL PANEL UPP., BIOFIRECOVDET #### [facility] [address] Troponin I.cardiac [Mass/vol ume] in Serum or Plasma by Detection limit <= 0.01 ng/Ordered By: Don Rapp on 08-17-2023 Troponin I.cardiac DL <= 0.01 ng/mL [Mass/Vol] 4.2 pg/mL 0.0-15.0 [facility] Urea nitrogen [Mass/volume] in Serum or PlasmaOrdered By: Don Rapp on 08-17-2023 Urea nitrogen [Mass/Vol] 12 mg/dL Normal 7-25 [facility] Comment on above: Performed By: #### M G, HS TROP, BNP, CBC, PTT, PT, CMP, CK #### [facility] [address] [place] [address] [place] Urine clarity by refractomet ry automatedOrdered By: Don Rapp on 08-17-2023 Clarity Refractometry automated (U) Clear Clear [facility] Urine glucose measurement by automated test strip (mass/volume)Ordered By: Don Rapp on 08-17-2023 Glucose Auto test strip (U) [Mass/Vol] Normal mg/dL Normal [facility] Urine hemoglobin detection b y automated test stripOrdered By: Don Rapp on 08-17-2023 Hemoglobin Auto test strip Ql (U) Negative Negative [facility] Urine leukocyte esterase det ection by automated test stripOrdered By: Don Rapp on 08-17-2023 Leukocyte esterase Auto test strip Ql (U) Negative Negative [facility] Urine pH measurement by auto mated test stripOrdered By: Don Rapp on 08-17-2023 pH (U) 5.5 [pH] Normal 5.0-9.0 [facility] Comment on above: Order Comment: Name Collection Type:: Clean-Voided Midstream Performed By: #### R EDIL PANEL UPP., BIOFIRECOVDET #### [address] Urine protein measurement by automated test strip (mass/volume)Ordered By: Don Rapp on 08-17-2023 Protein (U) [Mass/Vol] 30 mg/dL High Negative [facility] Comment on above: Order Comment: Name Collection Type:: Clean-Voided Midstream Performed By: #### R EDIL PANEL UPP., BIOFIRECOVDET #### [facility] [address] [place] [address] Urobilinogen Auto test strip (U) [Mass/Vol]Ordered By: Don Rapp on 08-17-2023 Urobilinogen (U) [Mass/Vol] Normal mg/dL Normal [facility] XR chest 2V*on 08-17-2023 XR chest 2V* [place] [address] XRay Report Signed Patient: Quin Perez MR#: [id number] : 1950 Acct:[id number] Age/Sex: 73 / F ADM Date: 08/17/23 Loc: ER Room: Type: [facility] ER Attending Dr: Copies to: Don [...] Dayanara Santos M.D.08/17/2023 2:53 PM Dictation Location: [place] [address] Transcribed By: [facility] 08/17/23 1453 Dictated By: Dayanara Santos MD 08/17/23 1451 Signed By: 08/17/23 1453 Normal [facility] .GFRon 11-02-2018 GFR Non- >60 Normal [facility] ([place]) Comment on above: Result Comment: GFR Population [...] Performed By: #### B MP, GFR #### [place] [address] GFR >60 Normal [facility] ([place]) Comment on above: Result Comment: GFR Population [...] Performed By: #### B MP, GFR #### [address] [address] BMPon 11-02-2018 Creatinine [Mass/Vol] 0.93 mg/dL Normal 0.60-1.40 [facility] ([place]) Comment on above: Performed By: #### B MP, GFR #### [address] [address] Urea nitrogen/Creatinine [Mass ratio] 25.8 ratio High 10.0-22.0 [facility] ([place]) Comment on above: Performed By: #### B MP, GFR #### [address] [address] Calcium [Mass/Vol] 8.5 mg/dL Normal 8.4-10.1 [facility] ([place]) Comment on above: Performed By: #### B MP, GFR #### [address] [address] Chloride [Moles/Vol] 109 mmol/L Normal 98-110 [facility] ([place]) Comment on above: Performed By: #### B MP, GFR #### [address] [address] CO2 [Moles/Vol] 25 mmol/L Normal 22-32 [facility] ([place]) Comment on above: Performed By: #### B MP, GFR #### [address] [address] Electrolyte Balance 6.0 mEq/L Normal 4.0-15.0 [facility] ([place]) Comment on above: Performed By: #### B MP, GFR #### [address] [address] Glucose [Mass/Vol] 99 mg/dL Normal 82-115 [facility] ([place]) Comment on above: Performed By: #### B MP, GFR #### [address] [address] Potassium [Moles/Vol] 4.6 mmol/L Normal 3.5-5.0 [facility] ([place]) Comment on above: Performed By: #### B MP, GFR #### [address] [address] Sodium [Moles/Vol] 140 mmol/L Normal 136-145 [facility] ([place]) Comment on above: Performed By: #### B MP, GFR #### [address] [address] Urea nitrogen [Mass/Vol] 24.0 mg/dL High 8.0-22.0 [facility] ([place]) Comment on above: Performed By: #### B MP, GFR #### [address] [address] XR CHEST 2 VIEWSon 9 XR CHEST [...] AM Sign Date: 11/02/2018 8:36:26 AM Normal [facility] ([place]) B12on 07-19-2018 Cobalamin (Vitamin B12) [Mass/Vol] 379 pg/mL Normal 211-911 [facility] ([place]) Comment on above: Performed By: #### B 12 #### [address] [address] Otheron 10-21-2006 CONVERTED ELECTRONIC SIGNATURE ADDIS YO M.D., PATHOLOGIST (Electronic signature on file) Final Signed Out: 10/21/2006 14:48 [facility] CONVERTED FINAL DIAGNOSIS A) GASTRIC BIOPSIES - [...] OF HYPERPLASTIC POLYP AND BENIGN COLONIC MUCOSA. [facility] CONVERTED ORDERING PROVIDER Ordering Provider: REKHA MENDES [facility] Vital Signs Date Time Vital Sign Value Performing Clinician Ana Laura weiner 09-24-2023 09:00-0400 Heart rate 93 /min [facility] 09-24-2023 09:00-0400 Respiratory rate 18 /min [facility] 09-24-2023 08:56-0400 Inhaled oxygen flow rate 2 L/min [facility] 09-24-2023 08:56-0400 SaO2% (BldA) [Mass fraction] 92 % [facility] 09-24-2023 07:30-0400 Body temperature 98.9 [degF] [facility] 09-24-2023 07:30-0400 Diastolic blood pressure 62 mm[Hg] [facility] 09-24-2023 07:30-0400 Systolic blood pressure 101 mm[Hg] [facility] 09-21-2023 17:36-0400 Body height 144.78 cm [facility] 09-21-2023 17:36-0400 Body weight 44.45 kg [facility] 09-21-2023 14:46-0400 Diastolic blood pressure 76 mm[Hg] [facility] 09-21-2023 14:46-0400 Heart rate 60 /min [facility] 09-21-2023 14:46-0400 Inhaled oxygen flow rate 2 L/min [facility] 09-21-2023 14:46-0400 Respiratory rate 18 /min [facility] 09-21-2023 14:46-0400 SaO2% (BldA) [Mass fraction] 98 % [facility] 09-21-2023 14:46-0400 Systolic blood pressure 137 mm[Hg] [facility] 09-21-2023 11:32-0400 Body height 144.78 cm [facility] 09-21-2023 11:32-0400 Body temperature 97.7 [degF] [facility] 09-21-2023 11:32-0400 Body weight 44.45 kg [facility] 08-17-2023 17:15-0400 Diastolic blood pressure 66 mm[Hg] [facility] 08-17-2023 17:15-0400 Heart rate 65 /min [facility] 08-17-2023 17:15-0400 Respiratory rate 22 /min [facility] 08-17-2023 17:15-0400 SaO2% (BldA) [Mass fraction] 94 % [facility] 08-17-2023 17:15-0400 Systolic blood pressure 136 mm[Hg] [facility] 08-17-2023 13:44-0400 Body height 144.78 cm [facility] 08-17-2023 13:44-0400 Body temperature 97.9 [degF] [facility] 08-17-2023 13:44-0400 Body weight 43.09 kg [facility] Encounters Encounter Date Encounter Type Care Provider Facility Start: 09-22-2023 Non-patient / Non-visit [facility] OutPt Work Phone: Start: 09-21-2023 End: 09-24-2023 Evaluation and management of inpatient [facility] Work Phone: Start: 09-21-2023 ambulatory NON STAFF Facility:[facility] Start: 08-29-2023 End: 08-29-2023 ambulatory JOHANNY N JUAN LUIS Not Available Start: 08-17-2023 End: 08-17-2023 Emergency department patient visit [facility] Work Phone: Start: 10-19-2006 End: 10-19-2006 Patient encounter procedure Rekha Mendes Work Phone: [facility] Start: 10-19-2006 Results Only Rekha ponce Work Phone: [facility] Procedures Date Procedure Procedure Detail Performing Clinician Start: 08-17-2023 Respiratory Panel (PCR) Start: 08-17-2023 Plain chest X-ray Start: 10-19-2006 CONVERTED SURGICAL PATHOLOGY Rekha Mendes Work Phone: Plan of Treatment Date Care Activity Detail Author Start: 09-24-2023 [facility] Start: 09-22-2023 Administration of pr ophylactic treatment 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 Start: 09-21-2023 Hospital admission [facility] Patient Education [facility] Work Phone: Patient referral [facility] Work Phone: Payers Date Payer Category Payer Medicare [id number] 2023 Self-pay 2019 Unknown [id number] 1950 Unknown [id number] Medicare Medicare [id number] Unknown [id number] [id number] [id number] Unknown [id number] 2.16.8 [id number] Unknown [id number] 2.16.8 [id number] Social History Date Type Detail [facility] Sex Assigned At Not on file [facility] Start: 08-17-2023 End: 09-22-2023 Tobacco smoking status NHIS Smoker (finding) [facility] Start: 1950 Sex Assigned At Female F [facility] Start: 09-21-2023 Tobacco smoking stat us NHIS Never smoked tobacco (finding) [facility] Goals Date Patient Goal Desired Activity /State Functional Status Date Assessment Result Facility 09-24-2023 Functional status Patient at Baseline [facility] Work Phone: Mental Status Date Assessment Result Facility 09-24-2023 Cognitive function Cognitive Sta tus Patient at Baseline [facility] Work Phone: Discharge summary 09-24-2023 Note Date & Type Note Facility 09-24-2023 Discharge summary Note Date/Time September 24, 2023 10:39am [facility] [address] [place] [address] Discharge Summary Signed Patient: Quin Perez MR#: [id number] : 1950 Acct:[id number] Age/Sex: 73 / F Adm Date: 4 Loc: Room: [address] [place] [address]: Juan Alberto Salinas MD Copies to: NON STAFF Juan Alberto Salinas MD~ Providers Date of Discharge: 09/24/23 Discharging Provider: Juan Alberto Salinas Primary Care Provider: NON STAFF Consults: 09/21/23 17:54 Consult to Case Management Routine Comment: CM 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 at [phone] any time day or night if you have emergent questions or question regarding discharge instructions. If at any time you are feeling an increase inyour psychiatric symptoms, call your physician or behavioral healthcare provider. If any time you have thoughts of harming yourself or others contact one of the following: Call (available 22/09) Crisis Text Line (available 22/09) text 4HOPE to [phone] [facility] Hope Line (available 8 a.m. Midnight) call [phone] ([phone]) Instructions: Know your Meds Prescriptions: New nicotine [...] your psychiatric provider when you return to [place]. ) [facility] ([place]) [Outside] - 09/25/23 1:00 pm Exam Physical [...] by Juan Alberto Salinas MD> 09/24/23 1041 [facility] Work Phone: Progress note 09-23-2023 Note Date & Type Note Facility 09-23-2023 Progress note Note Date/Time September 23, 2023 1:07pm [facility] [address] [place] [address] Psychiatry Progress Note Signed Patient: Quin Perez MR#: [id number] : 1950 Acct:[id number] Age/Sex: 73 / F Adm Date: 4 Loc: Room: [address] [place] [address] Type : ADM IN Attending Dr: Juan [...] by Juan Alberto Salinas MD> 09/23/23 1306 [facility] Work Phone: History and physical note 09-22-2023 Note Date & Type Note Facility 09-22-2023 History and physi corbin note Note Date/Time September 22, 2023 11:53am [facility] [address] [place] [address] Psychiatry H&P Signed Patient: Quin Perez MR#: [id number] : 1950 Acct:[id number] Age/Sex: 73 / F Adm Date: 4 Loc: Room: [address] [place] [address] Type: ADM IN Attending Dr: Juan Alberto [...] Unable to assess Insight: impaired Judgment: impaired [facility] Medical History Depression Surgical History Hx of hysterectomy Hx of cholecystectomy Hx of neck surgery Previous back surgery Heart valve replaced Family History (Updated 09/21/23 @ 17:46 by Ale Deutsch RN) Other No significant family history Social History Smoking Status: Current every day smoker Tobacco Type: cigarettes Substance Use Type: None Social History Comments: lives in [place] for the summer and [place] in the winter. Meds Medications and Allergies [...] Cloudy A Urine pH 5.5 Ur Specific [place] 1.022 Urine Protein 30 H Urine Glucose [...] by Juan Alberto Salinas MD> 09/22/23 1153 [facility] Work Phone: Evaluation note Note Date & Type Note Facility Evaluation note No assessment information availa ble [facility] Work Phone: Evaluation note Note Date & Type Note Facility Evaluation note Diagnosis Onset Date Chronic abdominal pain acute Major depression acute [facility] Work Phone: Summary Purpose Family [...] section and content) DATE CREATED AUTHOR 05/05/2019 [facility] ([place]) DATE CREATED AUTHOR AUTHOR'S ORGANIZ ATION 08/30/2023 [facility] EPIC DATE CREATED AUTHOR AUTHOR'S ORGANIZ ATION 10/24/2023 [facility] Source Comments (unrecognize d section and content) In the event this informatio n is protected by the Federal Confidentiality of Alcohol and Drug Abuse Patient Records regulations: The Federal rules restrict any use of the information to criminally investigate or prosecute any alcohol or drug abuse patient.[facility] Care Teams (unrecognized sec tion and content) [...] 2023 Juan Alberto Salinas MD Admit Provider, Aly [email or web address] Provider, Other Provider Active Start: September 22, [...] BE BASED ON THE PRIMARY CLINICAL RECORDS. [employer] provides no warranty or guarantee of the accuracy or completeness of information in this document.
[2023-10-24] MEDS: METHYLPREDNISOLONE SOD SUCC PF 40 MG/ML VIAL IVP (12:53)
[2023-10-24] MEDS: KETOROLAC TROMETHAMINE 30 MG/ML VIAL 15 MG IVP (12:53)
[2023-10-24] MEDS: FAMOTIDINE/PF 20 MG/2 ML VIAL IV (12:53)
[2023-10-24 13:27] LABS: Basophils Percent Auto 0.6 % (0.2-2.0); Eosinophils Percent Auto 0.6 % (0.9-7.0); Hematocrit 27.7 % (36.0-48.0); Hemoglobin 8.4 g/dL (12.0-16.0); Immature Granulocytes Abs Auto 0.01 10^3/uL (0.00-0.03); Immature Granulocytes Pct Auto 0.2 % (0.0-0.5); Lymphocytes Absolute Auto 1.4 10^3/uL (1.2-3.8); Lymphocytes Percent Auto 27.8 % (20.5-60.0); Mean Corpuscular HGB Conc 30.3 g/dL (29.9-35.2); Mean Corpuscular Hemoglobin 30.2 pg (26.7-34.0); Mean Corpuscular Volume 99.6 fL (81.0-99.0); Mean Platelet Volume 10.7 fL (9.5-13.5); Monocytes Absolute Auto 0.5 10^3/uL (0.3-0.8); Monocytes Percent Auto 8.9 % (1.7-12.0); Neutrophils Absolute Auto 3.2 10^3/uL (1.4-6.5); Neutrophils Percent Auto 61.9 % (43.0-75.0); Platelet Count 149 10^3/uL (150-450); Red Blood Count 2.78 10^6/uL (4.20-5.40); Red Cell Distribution Width 18.4 % (11.0-15.0); White Blood Count 5.2 10^3/uL (4.0-11.0)
[2023-10-24 13:38] LABS: Alanine Aminotransferase 21 U/L (14-59); Albumin Globulin Ratio 0.7; Albumin Level 2.4 g/dL (3.4-5.0); Alkaline Phosphatase 104 U/L (46-116); Anion Gap 6.8; Aspartate Amino Transferase 22 U/L (15-37); BUN Creatinine Ratio 21.5; Bilirubin Total 0.7 mg/dL (0.2-1.0); Calcium 8.2 mg/dL (8.5-10.1); Carbon Dioxide 33.8 mmol/L (21.0-32.0); Chloride 102 mmol/L (98-107); Estimated GFR (African America >60 (>=60); Estimated GFR (Non-African Ame >60 (>=60); Globulin 3.3 g/dL; Glucose 80 mg/dL (74-106); Potassium 4.6 mmol/L (3.5-5.1); Sodium 138 mmol/L (136-145); Total Protein 5.7 g/dL (6.4-8.2); Troponin I High Sensitivity 5.5 pg/mL (4.0-51.3)
== END 2023-10-24 15:00 | disposition home or self-care (01) ==
PROVIDERS: Emergency Provider Emergency Medicine
DX: S22.31XA Fracture of one rib, right side, initial encounter for closed fracture (principal); S20.219A Contusion of unspecified front wall of thorax, initial encounter; W19.XXXA Unspecified fall, initial encounter
CPT/HCPCS: 36415; 71250; 80053; 84484; 85025; 93005; 94667; 96374; 96375; 99285; J1885; J2919

== ENCOUNTER 2023-10-26 09:04 | Outpatient (OUT) | payer MEDICARE, BC, SELFPAY | END 2023-10-26 09:05 | disposition home or self-care (01) | LOC: WC 09:04 | PROVIDERS: Visit Provider Physician Assistant | DX: S81.802A Unspecified open wound, left lower leg, initial encounter (principal) | CPT/HCPCS: A6213; G0463 ==